=== PATIENT | male | born 1955 | race Caucasian/White ===

== ENCOUNTER 2017-05-23 12:28 | Inpatient (IN) | payer MEDICARE, MEDICAID ==
--- NOTE | 2017-05-23 14:18 | EDM.PDOC ---
ED HPI GENERAL MEDICAL PROBLEM - General Chief Complaint: Cardiovascular Problem Stated Complaint: DIZZINESS Time Seen by Provider: 05/23/17 13:00 Source of Information: Reports: Patient History Limitations: Reports: No Limitations - History of Present Illness INITIAL COMMENTS - FREE TEXT/NARRATIVE: 62-year-old male with chronic peripheral edema, congestive heart failure and diffuse joint pains, especially knee pain has been trying to clear his peripheral edema with different medications and last night had such a tough time sleeping and was so uncomfortable that he decided he had to come in "to get something done". He has no chest pain. No nausea or vomiting. He is in no respiratory distress and is not hypoxic. Onset: Unknown/Unsure Severity: Moderate Associated Symptoms: Reports: Malaise, Shortness of Breath (Especially lying down), Weakness. Denies: Chest Pain, Cough, Fever/Chills, Headaches, Nausea/ Vomiting 8.5 Pain Score (Numeric/FACES): 8 - Related Data Allergies Allergy/AdvReac Type Severity Reaction Status Date / Time acetaminophen [From Tylenol] Allergy Ringing in Verified 05/23/17 16:37 the Ears flurbiprofen [From Ansaid] Allergy Abdominal Verified 05/23/17 16:37 Pain codeine AdvReac Nausea Verified 05/23/17 16:37 Home Meds: Home Meds Lisinopril [Prinivil] 40 mg PO DAILY 01/13/13 [History] amLODIPine [Norvasc] 10 mg PO BEDTIME 10/07/13 [History] Furosemide [Furosemide] 1 tab PO BID 05/23/17 [History] Metolazone [Metolazone] 1 tab PO DAILY 05/23/17 [History] Past Medical History HEENT History: Reports: Other (See Below) Other HEENT History: ears ringing Cardiovascular History: Reports: Heart Failure, Hypertension Gastrointestinal History: Reports: Other (See Below) Other Gastrointestinal History: appy Genitourinary History: Reports: Other (See Below) Other Genitourinary History: cloudy urine Musculoskeletal History: Reports: Other (See Below) Other Musculoskeletal History: work at the [employer] since then has had pain in arm and back Neurological History: Reports: Other (See Below) Other Neuro History: anerysm clipped Psychiatric History: Reports: Depression Hematologic History: Reports: Anemia - Past Surgical History Musculoskeletal Surgical History: Reports: Other (See Below) Social & Family History - Tobacco Use Smoking Status *Q: Current Every Day Smoker Years of Tobacco use: 20 Packs/Tins Daily: 0.5 Second Hand Smoke Exposure: Yes - Alcohol Use Days Per Week of Alcohol Use: 0 Number of Drinks Per Day: 0 Total Drinks Per Week: 0 - Recreational Drug Use Recreational Drug Use: No ED ROS GENERAL - Review of Systems Review Of Systems: See Below Constitutional: Reports: Malaise. Denies: Fever, Chills HEENT: Reports: No Symptoms Respiratory: Reports: Shortness of Breath Cardiovascular: Reports: Lightheadedness. Denies: Chest Pain, Palpitations GI/Abdominal: Denies: Abdominal Pain (No pain but he feels full) : Reports: Other (Nocturia is consistent and recurring) Skin: Reports: Other (Some erythema of the lower extremities especially anteriorly.) Neurological: Reports: Dizziness, Weakness. Denies: Headache Psychiatric: Reports: Anxiety (History PTSD) ED EXAM, GENERAL - Physical Exam Exam: See Below Exam Limited By: No Limitations General Appearance: Alert, No Apparent Distress Eye Exam: Bilateral Eye: EOMI Head: Atraumatic Respiratory/Chest: No Respiratory Distress, Lungs Clear Cardiovascular: Regular Rate, Rhythm, Extra Beats (Occasional ectopic beat is present) GI/Abdominal: Normal Bowel Sounds, Other (Morbidly obese, nontender) Extremities: Pedal Edema (Tense lower extremity edema bilaterally, somewhat tender to palpation. Anterior lower legs are somewhat erythematous) Neurological: Alert, Oriented, No Motor/Sensory Deficits Psychiatric: Normal Affect, Normal Mood Skin Exam: Warm, Dry, Erythema (Lower extremities) Course - Vital Signs Last Recorded V/S: Last Vital Signs Temp 98 F 05/24/17 07:12 Pulse 94 05/24/17 07:12 Resp 16 05/24/17 07:12 BP 157/100 H 05/24/17 07:12 Pulse Ox 93 L 05/24/17 07:12 - Orders/Labs/Meds Orders: Active Orders 24 hr Category Date Time Status Chest 2V [CR] Routine Exams 05/23/17 13:55 Taken Sodium Chloride 0.9% [Saline Flush] Med 05/23/17 15:00 Active 10 ml FLUSH ASDIRECTED PRN Saline Lock Insert [OM.PC] Routine Oth 05/23/17 15:00 Ordered Medication Orders Amlodipine Besylate (Norvasc) 10 mg PO BEDTIME [facility] Last Admin: 05/23/17 21:50 Dose: 10 mg Furosemide (Lasix) 40 mg IVPUSH BID [facility] Last Admin: 05/23/17 20:33 Dose: 40 mg Lisinopril (Prinivil) 40 mg PO DAILY [facility] Sodium Chloride (Saline Flush) 10 ml FLUSH ASDIRECTED PRN PRN Reason: Keep Vein Open Last Admin: 05/23/17 15:16 Dose: 10 ml Tramadol HCl (Ultram) 50 mg PO Q6H [facility] Last Admin: 05/24/17 05:06 Dose: 50 mg Admin: 05/23/17 22:34 Dose: Not Given Admin: 05/23/17 17:17 Dose: 50 mg Labs: Laboratory Tests 05/23/17 05/23/17 05/23/17 Range/Units 14:08 14:08 14:59 WBC 9.4 (4.5-11.0) K/uL RBC 4.89 (4.30-5.90) M/uL Hgb 11.2 L D (12.0-15.0) g/dL Hct 37.9 L (40.0-54.0) % MCV 78 L (80-98) fL MCH 23 L (27-31) pg MCHC 30 L (32-36) % Plt Count 342 (150-400) K/uL Neut % (Auto) 65 (36-66) % Lymph % (Auto) 19 L (24-44) % [place] % (Auto) 12 H (2-6) % Eos % (Auto) 4 (2-4) % Baso % (Auto) 0 (0-1) % Sodium 142 (140-148) mmol/L Potassium 4.4 (3.6-5.2) mmol/L Chloride 104 (100-108) mmol/L Carbon Dioxide 28 (21-32) mmol/L Anion Gap 10.1 (5.0-14.0) mmol/L BUN 16 (7-18) mg/dL Creatinine 0.9 (0.8-1.3) mg/dL Est Cr Clr Drug Dosing 93.41 mL/min Estimated GFR (MDRD) > 60 (>60) Glucose 87 (74-106) mg/dL Calcium 8.8 (8.5-10.1) mg/dL Total Bilirubin 0.3 (0.2-1.0) mg/dL AST 24 (15-37) U/L ALT 44 (12-78) U/L Alkaline Phosphatase 67 (46-116) U/L Troponin I < 0.017 (0.000-0.056) ng/mL Total Protein 7.5 (6.4-8.2) g/dL Albumin 3.6 (3.4-5.0) g/dL Globulin 3.9 H (2.3-3.5) g/dL Albumin/Globulin Ratio 0.9 L (1.2-2.2) Urine Color Yellow Urine Appearance Clear Urine pH 6.0 (4.5-8.0) Ur Specific [place] 1.020 (1.008-1.030) Urine Protein Negative (NEGATIVE) mg/dL Urine Glucose (UA) Normal (NEGATIVE) mg/dL Urine Ketones Negative (NEGATIVE) mg/dL Urine Occult Blood Moderate (NEGATIVE) Urine Nitrite Negative (NEGAITVE) Urine Bilirubin Negative (NEGATIVE) Urine Urobilinogen Normal (NORMAL) mg/dL Ur Leukocyte Esterase Negative (NEGATIVE) Urine RBC 5-10 H (0-5) Urine WBC Not seen (0-5) Ur Epithelial Cells Rare Amorphous Sediment Not seen Urine Bacteria Rare Urine Mucus Few Meds: Medications Generic Name Dose Route Start Last Admin Trade Name Freq PRN Reason Stop Dose Admin Amlodipine Besylate 10 mg 05/23/17 21:00 05/23/17 21:50 Norvasc PO 10 mg BEDTIME DAVIDE Administration Furosemide 40 mg 05/23/17 21:00 05/23/17 20:33 Lasix IVPUSH 40 mg BID DAVIDE Administration Lisinopril 40 mg 05/24/17 09:00 Prinivil PO DAILY DAVIDE Sodium Chloride 10 ml 05/23/17 15:00 05/23/17 15:16 Saline Flush FLUSH 10 ml ASDIRECTED PRN Administration Keep Vein Open Tramadol HCl 50 mg 05/23/17 17:00 05/24/17 05:06 Ultram PO 50 mg Q6H DAVIDE Administration Discontinued Medications Generic Name Dose Route Start Last Admin Trade Name Freq PRN Reason Stop Dose Admin Amlodipine Besylate Confirm 05/23/17 20:31 05/23/17 20:55 Norvasc Administered 05/23/17 20:32 Not Given Dose 10 mg .ROUTE .STK-MED ONE Furosemide 40 mg 05/23/17 15:03 05/23/17 15:16 Lasix IVPUSH 05/23/17 15:04 40 mg ONETIME ONE Administration Furosemide 100 mg/ Sodium 100 mls @ 5 mls/hr 05/23/17 16:41 05/23/17 18:40 Chloride IV 05/24/17 12:40 Not Given NOW STA Protocol 5 MG/HR Lorazepam 0.5 mg 05/23/17 20:22 05/23/17 21:49 Ativan IVPUSH 05/23/17 20:23 0.5 mg ONETIME ONE Administration Morphine Sulfate 2 mg 05/23/17 20:21 05/23/17 21:45 Morphine IVPUSH 05/23/17 20:22 2 mg ONETIME ONE Administration - Re-Assessments/Exams Free Text/Narrative Re-Assessment/Exam: 05/23/17 14:17 A chest x-ray was obtained along with a UA, CBC and CMP. He was kept on cardiac monitoring and remained in a sinus rhythm. 05/23/17 15:00 Chest x-ray was relatively normal showing no evidence of congestive heart failure. Hemoglobin is 11.2, entire CMP was normal. After discussing his condition with Dr. Montemayor, his primary provider he'll be admitted for the next 24-48 hours for IV diuresis of his significant peripheral edema. Departure - Departure Time of Disposition: 17:57 Disposition: Admitted As Inpatient 66 Condition: Fair Clinical Impression: CHF (congestive heart failure), Peripheral edema, Weakness generalized - My Orders Last 24 Hours: My Active Orders 05/23/17 13:55 Chest 2V [CR] Routine 05/23/17 15:00 Sodium Chloride 0.9% [Saline Flush] 10 ml FLUSH ASDIRECTED PRN Saline Lock Insert [OM.PC] Routine - Assessment/Plan Last 24 Hours: My Active Orders 05/23/17 13:55 Chest 2V [CR] Routine 05/23/17 15:00 Sodium Chloride 0.9% [Saline Flush] 10 ml FLUSH ASDIRECTED PRN Saline Lock Insert [OM.PC] Routine
[2017-05-23] MEDS ORDERED: Sodium Chloride 0.9% 10 ML Syringe FLUSH PRN (15:00)
[2017-05-23] MEDS ORDERED: Furosemide 40 MG/4 ML VIAL IVPUSH ONE (15:03)
--- NOTE | 2017-05-23 16:36 | PCM.HP ---
H&P History of Present Illness - General Date of Service: 05/23/17 Admit Problem/Dx: Admission Diagnosis/Problem Admission Diagnosis/Problem Edema - History of Present Illness Initial Comments - Free Text/Narative: Otto comes in because of significant shortness of breath and also fainting episodes. He said he fell hitting his head on the dresser at home. He has episodes of loss of consciousness and he is concerned. He has significant respiratory distress and swelling of his legs and he said he can't get rid of the water that he has in his legs and arms. He also has pain in his legs and wants medication for relief. He said he is having a hard time sleeping and has to sit in a chair often. Onset of Symptoms: Reports: Gradual Duration of Symptoms: Reports: Week(s): Severity: Moderate Improves with: Reports: Immobilization Worsens with: Reports: Movement 8.5 Pain Score (Numeric/FACES): 8 - Related Data Allergies/Adverse Reactions: Allergies Allergy/AdvReac Type Severity Reaction Status Date / Time acetaminophen [From Tylenol] Allergy Ringing in Verified 05/23/17 16:37 the Ears flurbiprofen [From Ansaid] Allergy Abdominal Verified 05/23/17 16:37 Pain codeine AdvReac Nausea Verified 05/23/17 16:37 Home Medications: Home Meds Lisinopril [Prinivil] 40 mg PO DAILY 01/13/13 [History] amLODIPine [Norvasc] 10 mg PO BEDTIME 10/07/13 [History] Furosemide [Furosemide] 1 tab PO BID 05/23/17 [History] Metolazone [Metolazone] 1 tab PO DAILY 05/23/17 [History] Past Medical History HEENT History: Reports: Other (See Below) Other HEENT History: ears ringing Cardiovascular History: Reports: Heart Failure, Hypertension Gastrointestinal History: Reports: Other (See Below) Other Gastrointestinal History: appy Genitourinary History: Reports: Other (See Below) Other Genitourinary History: cloudy urine Musculoskeletal History: Reports: Other (See Below) Other Musculoskeletal History: work at the [employer] since then has had pain in arm and back Neurological History: Reports: Other (See Below) Other Neuro History: anerysm clipped Psychiatric History: Reports: Depression Hematologic History: Reports: Anemia - Past Surgical History Musculoskeletal Surgical History: Reports: Other (See Below) Social & Family History - Tobacco Use Smoking Status *Q: Current Every Day Smoker Years of Tobacco use: 20 Packs/Tins Daily: 0.5 Second Hand Smoke Exposure: Yes - Alcohol Use Days Per Week of Alcohol Use: 0 Number of Drinks Per Day: 0 Total Drinks Per Week: 0 - Recreational Drug Use Recreational Drug Use: No H&P Review of Systems - Review of Systems: Review Of Systems: See Below General: Reports: Weakness, Decreased Appetite, Weight Gain HEENT: Reports: No Symptoms Pulmonary: Reports: Shortness of Breath, Wheezing Cardiovascular: Reports: Dyspnea on Exertion, Syncope Gastrointestinal: Reports: Decreased Appetite Genitourinary: Reports: No Symptoms Musculoskeletal: Reports: Back Pain, Leg Pain, Muscle Pain Skin: Reports: No Symptoms Psychiatric: Reports: Depression Neurological: Reports: Dizziness Exam - Exam Exam: See Below - Vital Signs Vital Signs: Last Vital Signs Temp 98.8 F 05/23/17 13:18 Pulse 95 05/23/17 13:18 Resp 18 05/23/17 13:18 BP 144/88 H 05/23/17 15:16 Pulse Ox 94 L 05/23/17 13:18 Weight: 300 lb - Exam General: Alert, Oriented, Cooperative, Moderate Distress HEENT: PERRLA, Hearing Intact, Mucosa Moist & [place], Nares Patent, Normal Nasal Septum, Posterior Pharynx Clear, Conjunctiva Clear, EOMI, EACs Clear, TMs Clear Neck: Supple, Trachea Midline, 2 Lungs: Clear to Auscultation, Normal Respiratory Effort Cardiovascular: Regular Rate, Regular Rhythm GI/Abdominal Exam: Normal Bowel Sounds, Soft, Non-Tender, No Organomegaly, No Distention, No Abnormal Bruit, No Mass, Pelvis Stable, Other (gross obesity) Extremities: Pedal Edema (+3 edema) Peripheral Pulses: 1+: Radial (L), Radial (R) Neurological: Cranial Nerves Intact, Reflexes Equal Bilateral Neuro Extensive - Mental Status: Alert, Oriented x3, Normal Cognition, Memory Intact Neuro Extensive - Motor, Sensory, Reflexes: CN II-XII Intact, Normal Reflexes Psychiatric: Alert, Anxious - Patient Data Lab Results Last 24 hrs: Laboratory Results - last 24 hr 05/23/17 05/23/17 05/23/17 Range/Units 14:08 14:08 14:59 WBC 9.4 (4.5-11.0) K/uL RBC 4.89 (4.30-5.90) M/uL Hgb 11.2 L D (12.0-15.0) g/dL Hct 37.9 L (40.0-54.0) % MCV 78 L (80-98) fL MCH 23 L (27-31) pg MCHC 30 L (32-36) % Plt Count 342 (150-400) K/uL Neut % (Auto) 65 (36-66) % Lymph % (Auto) 19 L (24-44) % [place] % (Auto) 12 H (2-6) % Eos % (Auto) 4 (2-4) % Baso % (Auto) 0 (0-1) % Sodium 142 (140-148) mmol/L Potassium 4.4 (3.6-5.2) mmol/L Chloride 104 (100-108) mmol/L Carbon Dioxide 28 (21-32) mmol/L Anion Gap 10.1 (5.0-14.0) mmol/L BUN 16 (7-18) mg/dL Creatinine 0.9 (0.8-1.3) mg/dL Est Cr Clr Drug Dosing 93.41 mL/min Estimated GFR (MDRD) > 60 (>60) Glucose 87 (74-106) mg/dL Calcium 8.8 (8.5-10.1) mg/dL Total Bilirubin 0.3 (0.2-1.0) mg/dL AST 24 (15-37) U/L ALT 44 (12-78) U/L Alkaline Phosphatase 67 (46-116) U/L Troponin I < 0.017 (0.000-0.056) ng/mL Total Protein 7.5 (6.4-8.2) g/dL Albumin 3.6 (3.4-5.0) g/dL Globulin 3.9 H (2.3-3.5) g/dL Albumin/Globulin Ratio 0.9 L (1.2-2.2) Urine Color Yellow Urine Appearance Clear Urine pH 6.0 (4.5-8.0) Ur Specific [place] 1.020 (1.008-1.030) Urine Protein Negative (NEGATIVE) mg/dL Urine Glucose (UA) Normal (NEGATIVE) mg/dL Urine Ketones Negative (NEGATIVE) mg/dL Urine Occult Blood Moderate (NEGATIVE) Urine Nitrite Negative (NEGAITVE) Urine Bilirubin Negative (NEGATIVE) Urine Urobilinogen Normal (NORMAL) mg/dL Ur Leukocyte Esterase Negative (NEGATIVE) Urine RBC 5-10 H (0-5) Urine WBC Not seen (0-5) Ur Epithelial Cells Rare Amorphous Sediment Not seen Urine Bacteria Rare Urine Mucus Few Result Diagrams: 05/23/17 14:08 05/23/17 14:08 *Q Meaningful Use (ADM) - VTE *Q VTE Criteria *Q: - Stroke *Q Stroke Criteria *Q: - AMI *Q AMI Criteria *Q: Problem List Initiated/Reviewed/Updated: Yes Orders Last 24hrs: Active Orders 24 hr Category Date Time Status Patient Status [ADT] Routine ADT 05/23/17 16:22 Ordered Ambulate [RC] QID Care 05/23/17 16:22 Ordered Bedrest Bathroom Privileges [RC] ASDIRECTED Care 05/23/17 16:22 Ordered Height and Weight [RC] DAILY Care 05/24/17 05:11 Ordered Intake and Output [RC] QSHIFT Care 05/23/17 16:26 Ordered Oxygen Therapy [RC] PRN Care 05/23/17 16:22 Ordered Up to Chair [RC] QID Care 05/23/17 16:22 Ordered VTE/DVT Education [RC] Per Unit Routine Care 05/23/17 16:22 Ordered Vital Signs [RC] Q4H Care 05/23/17 16:22 Ordered Regular Diet [DIET] Diet 05/23/17 Dinner Ordered Chest 2V [CR] Routine Exams 05/23/17 13:55 Taken Lisinopril [Prinivil] Med 05/24/17 09:00 Ordered 40 mg PO DAILY Sodium Chloride 0.9% [Saline Flush] Med 05/23/17 15:00 Active 10 ml FLUSH ASDIRECTED PRN amLODIPine [Norvasc] Med 05/23/17 21:00 Ordered 10 mg PO BEDTIME Saline Lock Insert [OM.PC] Routine Oth 05/23/17 15:00 Ordered Resuscitation Status Routine Resus Stat 05/23/17 16:22 Ordered Medication Orders Sodium Chloride (Saline Flush) 10 ml FLUSH ASDIRECTED PRN PRN Reason: Keep Vein Open Last Admin: 05/23/17 15:16 Dose: 10 ml Assessment/Plan Comment:: assessment/Plan: #1. Edema: There is +3 edema and will give Lasix to remove the fluid. I will also order an echocardiogram to assess the heart condition. Neck told him that he needs to change his diet and lose weight her he will be a full-blown diabetic on insulin. #2. Hypertension: I feel that the amlodipine is causing some of his edema had decreased the amlodipine back to 5 mg a day and will start other medication tomorrow depending on blood pressure readings. He did have an injection of Lasix when he came in the knees lost quite a bit of water and this will continue. #3. Back Pain: Will treat as needed.
[2017-05-23] MEDS ORDERED: Furosemide 100 MG in Sodium Chloride 0.9% 90 ML IV STA (16:41)
[2017-05-23] MEDS: traMADol 50 MG Tab PO SCH ×2 (17:17→22:34)
[2017-05-23] MEDS ORDERED: Morphine 2 MG/ML Syringe IVPUSH ONE (20:21)
[2017-05-23] MEDS ORDERED: LORazepam 2 MG/ML SDV IVPUSH ONE (20:22)
[2017-05-23] MEDS ORDERED: amLODIPine 5 MG Tab ONE (20:31)
[2017-05-23] MEDS: Furosemide 40 MG/4 ML VIAL IVPUSH SCH (20:33)
[2017-05-23] MEDS ORDERED: amLODIPine 10 MG Tab PO SCH (21:00)
[2017-05-24] MEDS: traMADol 50 MG Tab PO SCH ×2 (05:06→12:07)
[2017-05-24] MEDS: Furosemide 40 MG/4 ML VIAL IVPUSH SCH ×2 (08:36→20:13)
[2017-05-24] MEDS: Lisinopril 20 MG Tab PO SCH (08:36)
--- NOTE | 2017-05-24 11:36 | PCM.PN ---
- General Info Date of Service: 05/24/17 Admission Dx/Problem (Free Text): Still has fluid retention but feeling better. Functional Status: Reports: Pain Controlled, Ambulating - Review of Systems Pulmonary: Reports: Shortness of Breath Cardiovascular: Reports: Dyspnea on Exertion, Edema Gastrointestinal: Reports: No Symptoms Genitourinary: Reports: No Symptoms Musculoskeletal: Reports: Back Pain, Leg Pain Skin: Reports: No Symptoms Neurological: Reports: No Symptoms Psychiatric: Reports: No Symptoms - Patient Data Vitals - Most Recent: Last Vital Signs Temp 98 F 05/24/17 07:12 Pulse 94 05/24/17 07:12 Resp 16 05/24/17 07:12 BP 157/100 H 05/24/17 08:36 Pulse Ox 93 L 05/24/17 07:12 Weight - Most Recent: 303 lb 6.4 oz I&O - Last 24 Hours: Intake & Output 05/23/17 05/24/17 05/24/17 22:59 06:59 14:59 Intake Total 1240 240 Output Total 1950 125 250 Balance -[facility] 1115 -10 Med Orders - Current: Current Medications Amlodipine Besylate (Norvasc) 5 mg PO DAILY [facility] Doxazosin Mesylate (Cardura) 4 mg PO BEDTIME [facility] Furosemide (Lasix) 40 mg IVPUSH BID [facility] Last Admin: 05/24/17 08:36 Dose: 40 mg Lisinopril (Prinivil) 40 mg PO DAILY [facility] Last Admin: 05/24/17 08:36 Dose: 40 mg Sodium Chloride (Saline Flush) 10 ml FLUSH ASDIRECTED PRN PRN Reason: Keep Vein Open Last Admin: 05/23/17 15:16 Dose: 10 ml Tramadol HCl (Ultram) 50 mg PO Q6H PRN PRN Reason: PAIN Discontinued Medications Amlodipine Besylate (Norvasc) 10 mg PO BEDTIME [facility] Last Admin: 05/23/17 21:50 Dose: 10 mg Amlodipine Besylate (Norvasc) Confirm Administered Dose 10 mg .ROUTE .STK-MED ONE Stop: 05/23/17 20:32 Last Admin: 05/23/17 20:55 Dose: Not Given Furosemide (Lasix) 40 mg IVPUSH ONETIME ONE Stop: 05/23/17 15:04 Last Admin: 05/23/17 15:16 Dose: 40 mg Furosemide 100 mg/ Sodium (Chloride) 100 mls @ 5 mls/hr IV NOW STA; 5 MG/HR PRN Reason: Protocol Stop: 05/24/17 12:40 Last Admin: 05/23/17 18:40 Dose: Not Given Lorazepam (Ativan) 0.5 mg IVPUSH ONETIME ONE Stop: 05/23/17 20:23 Last Admin: 05/23/17 21:49 Dose: 0.5 mg Morphine Sulfate (Morphine) 2 mg IVPUSH ONETIME ONE Stop: 05/23/17 20:22 Last Admin: 05/23/17 21:45 Dose: 2 mg Tramadol HCl (Ultram) 50 mg PO Q6H DAVIDE Last Admin: 05/24/17 05:06 Dose: 50 mg - Exam General: Oriented, Cooperative, Mild Distress HEENT: Pupils Equal, Pupils Reactive, EOMI, Mucous Membr. Moist/[place] Neck: Supple Lungs: Clear to Auscultation, Normal Respiratory Effort Cardiovascular: Regular Rate, Regular Rhythm GI/Abdominal Exam: Normal Bowel Sounds, Soft, Other (obesity) Back Exam: Vertebral Tenderness Extremities: Pedal Edema Peripheral Pulses: 1+: Radial (L) - Problem List Review Problem List Initiated/Reviewed/Updated: Yes - My Orders Last 24 Hours: My Active Orders 05/23/17 20:23 Telemetry Monitoring [Cardiac Monitoring] [RC] .As Directed 05/23/17 21:00 Furosemide [Lasix] 40 mg IVPUSH BID 05/24/17 08:58 SCD [Sequential Compression Device] [OM.PC] Routine 05/24/17 09:00 Lisinopril [Prinivil] 40 mg PO DAILY 05/24/17 11:27 traMADol [Ultram] 50 mg PO Q6H PRN 05/24/17 21:00 Doxazosin [Cardura] 4 mg PO BEDTIME 05/25/17 09:00 amLODIPine [Norvasc] 5 mg PO DAILY - Assessment Assessment:: Assessment/Plan: #1. Edema: There is +3 edema and will continue with Lasix to remove the fluid. An echocardiogram to assess the heart condition is pending tomorrow. I told him that he needs to change his diet and lose weight or else will be a full-blown diabetic on insulin. #2. Hypertension: I started him on Cardura 2 mg at night. #3. Back Pain: Will treat as needed.
[2017-05-24] MEDS: traMADol 50 MG Tab PO PRN (17:28)
[2017-05-24] MEDS ORDERED: Doxazosin 4 MG Tab PO SCH ×2 (21:00)
[2017-05-25] MEDS: traMADol 50 MG Tab PO PRN ×2 (01:08→08:22)
[2017-05-25] MEDS: Lisinopril 20 MG Tab PO SCH (08:11)
[2017-05-25] MEDS: Furosemide 40 MG/4 ML VIAL IVPUSH SCH (08:12)
[2017-05-25] MEDS ORDERED: amLODIPine 5 MG Tab PO SCH (09:00)
--- NOTE | 2017-05-25 09:18 | CR ---
Two-view chest Comparison: July 2015. Findings: The heart and vascular structures are within normal limits. There are no infiltrates or eff usions. There is a chronic large hiatal hernia. Impression: 1. Stable exam. No acute findings.
--- NOTE | 2017-05-25 09:51 | PCM.PN ---
- General Info Date of Service: 05/25/17 Subjective Update: Feeling better and breathing better with the water passed. Functional Status: Reports: Pain Controlled - Review of Systems General: Reports: Weakness HEENT: Reports: No Symptoms Pulmonary: Reports: No Symptoms Cardiovascular: Reports: No Symptoms Gastrointestinal: Reports: No Symptoms Genitourinary: Reports: No Symptoms Musculoskeletal: Reports: Joint Pain Skin: Reports: No Symptoms Neurological: Reports: No Symptoms Psychiatric: Reports: No Symptoms - Patient Data Vitals - Most Recent: Last Vital Signs Temp 98.7 F 05/25/17 07:00 Pulse 97 05/25/17 07:00 Resp 18 05/25/17 07:00 BP 148/84 H 05/25/17 08:12 Pulse Ox 95 05/25/17 07:00 Weight - Most Recent: 304 lb 3.2 oz I&O - Last 24 Hours: Intake & Output 05/24/17 05/25/17 05/25/17 22:59 06:59 14:59 Output Total 2024 1499 1799 Balance -2024 Med Orders - Current: Current Medications Amlodipine Besylate (Norvasc) 5 mg PO DAILY [facility] Last Admin: 05/25/17 08:10 Dose: 5 mg Doxazosin Mesylate (Cardura) 2 mg PO BEDTIME [facility] Furosemide (Lasix) 40 mg IVPUSH BID [facility] Last Admin: 05/25/17 08:12 Dose: 40 mg Lisinopril (Prinivil) 40 mg PO DAILY [facility] Last Admin: 05/25/17 08:11 Dose: 40 mg Sodium Chloride (Saline Flush) 10 ml FLUSH ASDIRECTED PRN PRN Reason: Keep Vein Open Last Admin: 05/23/17 15:16 Dose: 10 ml Tramadol HCl (Ultram) 50 mg PO Q6H PRN PRN Reason: PAIN Last Admin: 05/25/17 08:22 Dose: 50 mg Discontinued Medications Amlodipine Besylate (Norvasc) 10 mg PO BEDTIME [facility] Last Admin: 05/23/17 21:50 Dose: 10 mg Amlodipine Besylate (Norvasc) Confirm Administered Dose 10 mg .ROUTE .STK-MED ONE Stop: 05/23/17 20:32 Last Admin: 05/23/17 20:55 Dose: Not Given Doxazosin Mesylate (Cardura) 4 mg PO BEDTIME [facility] Furosemide (Lasix) 40 mg IVPUSH ONETIME ONE Stop: 05/23/17 15:04 Last Admin: 05/23/17 15:16 Dose: 40 mg Furosemide 100 mg/ Sodium (Chloride) 100 mls @ 5 mls/hr IV NOW STA; 5 MG/HR PRN Reason: Protocol Stop: 05/24/17 12:40 Last Admin: 05/23/17 18:40 Dose: Not Given Lorazepam (Ativan) 0.5 mg IVPUSH ONETIME ONE Stop: 05/23/17 20:23 Last Admin: 05/23/17 21:49 Dose: 0.5 mg Morphine Sulfate (Morphine) 2 mg IVPUSH ONETIME ONE Stop: 05/23/17 20:22 Last Admin: 05/23/17 21:45 Dose: 2 mg Tramadol HCl (Ultram) 50 mg PO Q6H [facility] Last Admin: 05/24/17 12:07 Dose: Not Given - Exam General: Alert, Oriented Neck: Supple Lungs: Clear to Auscultation, Normal Respiratory Effort Cardiovascular: Regular Rate, Regular Rhythm GI/Abdominal Exam: Normal Bowel Sounds, Soft, Non-Tender, No Organomegaly, No Distention, No Abnormal Bruit, No Mass, Pelvis Stable Extremities: Other (knee ppain) Peripheral Pulses: 1+: Radial (L), Radial (R) Skin: Warm, Dry, Intact Psy/Mental Status: Alert, Normal Affect - Problem List Review Problem List Initiated/Reviewed/Updated: Yes - My Orders Last 24 Hours: My Active Orders 05/24/17 08:58 SCD [Sequential Compression Device] [OM.PC] Routine 05/24/17 09:00 Lisinopril [Prinivil] 40 mg PO DAILY 05/24/17 11:27 traMADol [Ultram] 50 mg PO Q6H PRN 05/24/17 21:00 Doxazosin [Cardura] 2 mg PO BEDTIME 05/25/17 05:00 Echo Ltd [US] Routine 05/25/17 09:00 amLODIPine [Norvasc] 5 mg PO DAILY 05/25/17 09:45 BASIC METABOLIC PANEL,BMP [CHEM] Routine CBC WITH AUTO DIFF [HEME] Routine - Assessment Assessment:: Assessment/Plan: #1. Edema: There is +3 edema and will continue with Lasix to remove the fluid. An echocardiogram to assess the heart condition is pending tomorrow. I told him that he needs to change his diet and lose weight or else will be a full-blown diabetic on insulin. #2. Hypertension: I wrote for Cardura 2 mg at night yesterday but the BP dropped and was not given. #3. Back Pain: Will treat as needed. Plan home today:
--- NOTE | 2017-05-25 09:58 | PCM.DCSUM1 ---
Discharge Summary - Hospital Course Brief History: History of fluid retention and having a hard time breathing and came to the ER and was admitted to improve his breathing by taking off fluid. - Discharge Data Discharge Date: 05/25/17 Discharge Disposition: Home, Self-Care 01 Condition: Good - Patient Summary/Data Hospital Course: Gave IV Lasix with good fluid removal and Echocardiogram is pending. - Patient Instructions Diet: Heart Healthy Diet Activity: As Tolerated - Discharge Plan Home Medications: Home Meds Lisinopril [Prinivil] 40 mg PO DAILY 01/13/13 [History] amLODIPine [Norvasc] 10 mg PO BEDTIME 10/07/13 [History] Metolazone 1 tab PO DAILY 05/23/17 [History] Furosemide 1 tab PO BID #0 05/25/17 [Rx] Forms: ED Department Discharge Referrals: Darius Montemayor Sr, MD [Primary Care Provider] - - Discharge Summary/Plan Comment Discharge Summary/Plan Comment: Assessment/Plan: #1. Edema: There is +3 edema and will continue with Lasix to remove the fluid. An echocardiogram to assess the heart condition is pending tomorrow. I told him that he needs to change his diet and lose weight or else will be a full-blown diabetic on insulin. Discharged with Lasix 40mg bid for 1 week and see in the office. #2. Hypertension: I wrote for Cardura 2 mg at night yesterday but the BP dropped and was not given. #3. Back Pain: Will treat as needed. - Patient Data Vitals - Most Recent: Last Vital Signs Temp 98.7 F 05/25/17 07:00 Pulse 97 05/25/17 07:00 Resp 18 05/25/17 07:00 BP 148/84 H 05/25/17 08:12 Pulse Ox 95 05/25/17 07:00 Weight - Most Recent: 304 lb 3.2 oz I&O - Last 24 hours: Intake & Output 05/24/17 05/25/17 05/25/17 22:59 06:59 14:59 Output Total 2024 1499 1799 Balance -2024 Med Orders - Current: Current Medications Amlodipine Besylate (Norvasc) 5 mg PO DAILY [facility] Last Admin: 05/25/17 08:10 Dose: 5 mg Doxazosin Mesylate (Cardura) 2 mg PO BEDTIME [facility] Furosemide (Lasix) 40 mg IVPUSH BID [facility] Last Admin: 05/25/17 08:12 Dose: 40 mg Lisinopril (Prinivil) 40 mg PO DAILY [facility] Last Admin: 05/25/17 08:11 Dose: 40 mg Sodium Chloride (Saline Flush) 10 ml FLUSH ASDIRECTED PRN PRN Reason: Keep Vein Open Last Admin: 05/23/17 15:16 Dose: 10 ml Tramadol HCl (Ultram) 50 mg PO Q6H PRN PRN Reason: PAIN Last Admin: 05/25/17 08:22 Dose: 50 mg Discontinued Medications Amlodipine Besylate (Norvasc) 10 mg PO BEDTIME [facility] Last Admin: 05/23/17 21:50 Dose: 10 mg Amlodipine Besylate (Norvasc) Confirm Administered Dose 10 mg .ROUTE .STK-MED ONE Stop: 05/23/17 20:32 Last Admin: 05/23/17 20:55 Dose: Not Given Doxazosin Mesylate (Cardura) 4 mg PO BEDTIME [facility] Furosemide (Lasix) 40 mg IVPUSH ONETIME ONE Stop: 05/23/17 15:04 Last Admin: 05/23/17 15:16 Dose: 40 mg Furosemide 100 mg/ Sodium (Chloride) 100 mls @ 5 mls/hr IV NOW STA; 5 MG/HR PRN Reason: Protocol Stop: 05/24/17 12:40 Last Admin: 05/23/17 18:40 Dose: Not Given Lorazepam (Ativan) 0.5 mg IVPUSH ONETIME ONE Stop: 05/23/17 20:23 Last Admin: 05/23/17 21:49 Dose: 0.5 mg Morphine Sulfate (Morphine) 2 mg IVPUSH ONETIME ONE Stop: 05/23/17 20:22 Last Admin: 05/23/17 21:45 Dose: 2 mg Tramadol HCl (Ultram) 50 mg PO Q6H [facility] Last Admin: 05/24/17 12:07 Dose: Not Given *Q Meaningful Use (DIS) - VTE *Q VTE Criteria *Q: - Stroke *Q Stroke Criteria *Q: - AMI *Q AMI Criteria *Q:
[2017-05-25 11:10] VITALS: BP 133/81
== END 2017-05-25 12:00 | disposition home or self-care (01) | DRG 292 ==
LOC: JP.ED 12:28 → JP.MS 16:22 → UNDOADMIN 16:22 → JP.ICU 16:22
PROVIDERS: ADMIT Internal Medicine; ATTEND Internal Medicine
DX: I11.0 Hypertensive heart disease with heart failure (principal); Z68.41 Body mass index [BMI] 40.0-44.9, adult; R53.1 Weakness; R06.02 Shortness of breath; I50.22 Chronic systolic (congestive) heart failure; F17.210 Nicotine dependence, cigarettes, uncomplicated; M54.9 Dorsalgia, unspecified; Z88.6 Allergy status to analgesic agent; Z88.5 Allergy status to narcotic agent; E66.01 Morbid (severe) obesity due to excess calories
CPT/HCPCS: 36415; 71046 ×2; 80053; 81001; 84484; 85025; 96374; 99284; 99285; J1940; J7050; 80048; 93308; A9270-GY; J2060; J2270

== ENCOUNTER 2017-06-17 20:29 | Emergency (ER) | payer MEDICARE, MEDICAID ==
[2017-06-17 21:35] VITALS: BP 104/53
[2017-06-17] MEDS ORDERED: hydrOXYzine HCl 100 MG/2 ML SDV IM ONE (21:43)
--- NOTE | 2017-06-17 21:45 | EDM.PDOC ---
ED HPI GENERAL MEDICAL PROBLEM - General Chief Complaint: Allergic Reaction Stated Complaint: ALLERGIC REACTION Time Seen by Provider: 06/17/17 21:40 Source of Information: Reports: Patient, Old Records, RN Notes Reviewed History Limitations: Reports: No Limitations - History of Present Illness INITIAL COMMENTS - FREE TEXT/NARRATIVE: 62-year-old gentleman presents to the emergency department day complaint of a rash and increasing shortness of breath, he has a known history of congestive heart failure he cannot describe any new medications that he is started, was recently seen at the [facility] in [place] received 1 dose of Solu- Medrol for his ongoing rash. He states the rash is quite itchy and is making him difficult to sleep at night - Related Data Allergies Allergy/AdvReac Type Severity Reaction Status Date / Time acetaminophen [From Tylenol] Allergy Ringing in Verified 05/23/17 16:37 the Ears flurbiprofen [From Ansaid] Allergy Abdominal Verified 05/23/17 16:37 Pain codeine AdvReac Nausea Verified 05/23/17 16:37 Home Meds: Home Meds Lisinopril [Prinivil] 40 mg PO DAILY 01/13/13 [History] Metolazone 5 mg PO DAILY 05/23/17 [History] Amitriptyline [Elavil] 1 - 2 tab PO BEDTIME 06/17/17 [History] Furosemide 20 mg PO BID 06/17/17 [History] Hydrochlorothiazide 25 mg PO BID 06/17/17 [History] Metoprolol Tartrate 50 mg PO BID 06/17/17 [History] Naproxen 500 mg PO Q6HR 06/17/17 [History] Past Medical History HEENT History: Reports: Other (See Below) Other HEENT History: ears ringing Cardiovascular History: Reports: Heart Failure, Hypertension Gastrointestinal History: Reports: Other (See Below) Other Gastrointestinal History: appy Genitourinary History: Reports: Other (See Below) Other Genitourinary History: cloudy urine Musculoskeletal History: Reports: Other (See Below) Other Musculoskeletal History: work at the [employer] since then has had pain in arm and back Neurological History: Reports: Other (See Below) Other Neuro History: anerysm clipped Psychiatric History: Reports: Depression Endocrine/Metabolic History: Reports: Obesity/BMI 30+ Hematologic History: Reports: Anemia - Past Surgical History Musculoskeletal Surgical History: Reports: Other (See Below) Social & Family History - Tobacco Use Smoking Status *Q: Current Every Day Smoker Years of Tobacco use: 20 Packs/Tins Daily: 0.5 Second Hand Smoke Exposure: Yes - Caffeine Use Caffeine Use: Reports: None - Alcohol Use Days Per Week of Alcohol Use: 0 Number of Drinks Per Day: 0 Total Drinks Per Week: 0 - Recreational Drug Use Recreational Drug Use: No ED ROS ALLERGIC REACTION - Review of Systems Review Of Systems: See Below Constitutional: Denies: Fever, Chills HEENT: Reports: No Symptoms Respiratory: Reports: Shortness of Breath Cardiovascular: Reports: Edema GI/Abdominal: Reports: No Symptoms : Reports: No Symptoms Musculoskeletal: Reports: No Symptoms Skin: Reports: Pruritis, Rash Neurological: Reports: No Symptoms ED EXAM GENERAL NO PERIP PULSE - Physical Exam Exam: See Below Text/Narrative:: General: Male, not in any distress, alert and oriented x3 HEENT: head is atraumatic normocephalic, eyes pupils equal round reactive to light, sclera clear no conjunctivitis appreciated. Ears tympanic membranes clear and rudolph landmarks and light reflex are present bilaterally canals are clear. Nose no septal deviation, nares are clear, no blood present. Mouth mucosa is moist and pink no erythema or exudate noted in soft palate, tongue is midline uvula is midline, dentition is intact. Neck: Supple no thyromegaly no tracheal deviation. Nodes: Cervical nodes subclavicular nodes nontender no palpable lymphadenopathy noted. Lungs: Decreased breath sounds in the bases however apex is clear to auscultation bilaterally CV: Regular rate and rhythm S1 and S2 appreciated no murmurs rubs or gallops noted. Abdomen: Soft, obese, nontender, no palpable masses or organomegaly appreciated , no distention no guarding bowel sounds are present, Neuro: Cranial nerves II through XII grossly intact Skin: Generalized macular papular rash with an excoriation it scratch cycle lower extremities and upper extremities minimally noticed on the trunk Extremities: +2 pitting edema bilaterally Course - Vital Signs Last Recorded V/S: Last Vital Signs Temp 96.3 F 06/17/17 21:25 Pulse 97 06/17/17 21:25 Resp 16 06/17/17 21:25 BP 104/53 L 06/17/17 21:25 Pulse Ox 94 L 06/17/17 21:25 - Orders/Labs/Meds Orders: Active Orders 24 hr Category Date Time Status Cardiac Monitoring [RC] .As Directed Care 06/17/17 21:41 Active EKG Documentation Completion [RC] ASDIRECTED Care 06/17/17 21:41 Active EKG 12 Lead [EK] Stat Ther 06/17/17 21:41 Ordered Labs: Laboratory Tests 06/17/17 06/17/17 Range/Units 21:40 21:40 WBC 11.0 (4.5-11.0) K/uL RBC 4.90 (4.30-5.90) M/uL Hgb 11.2 L (12.0-15.0) g/dL Hct 37.6 L (40.0-54.0) % MCV 77 L (80-98) fL MCH 23 L (27-31) pg MCHC 30 L (32-36) % Plt Count 356 (150-400) K/uL Neut % (Auto) 66 (36-66) % Lymph % (Auto) 11 L (24-44) % [place] % (Auto) 12 H (2-6) % Eos % (Auto) 12 H (2-4) % Baso % (Auto) 0 (0-1) % Sodium 141 (140-148) mmol/L Potassium 3.3 L (3.6-5.2) mmol/L Chloride 100 (100-108) mmol/L Carbon Dioxide 33 H (21-32) mmol/L Anion Gap 11.3 (5.0-14.0) mmol/L BUN 32 H D (7-18) mg/dL Creatinine 1.1 (0.8-1.3) mg/dL Est Cr Clr Drug Dosing 71.89 mL/min Estimated GFR (MDRD) > 60 (>60) Glucose 134 H (74-106) mg/dL Calcium 8.3 L (8.5-10.1) mg/dL Total Bilirubin 0.3 (0.2-1.0) mg/dL AST 16 (15-37) U/L ALT 23 (12-78) U/L Alkaline Phosphatase 64 (46-116) U/L Troponin I < 0.017 (0.000-0.056) ng/mL NT-Pro-B Natriuret Pep 261 H (5-125) pg/mL Total Protein 6.7 (6.4-8.2) g/dL Albumin 3.1 L (3.4-5.0) g/dL Globulin 3.6 H (2.3-3.5) g/dL Albumin/Globulin Ratio 0.9 L (1.2-2.2) Meds: Medications Discontinued Medications Generic Name Dose Route Start Last Admin Trade Name Barb PRN Reason Stop Dose Admin Hydroxyzine HCl 100 mg 06/17/17 21:43 06/17/17 22:11 Vistaril IM 06/17/17 21:44 100 mg ONETIME ONE Administration Departure - Departure Time of Disposition: 22:47 Disposition: Home, Self-Care 01 Condition: Fair Clinical Impression: Pruritic rash - Discharge Information Referrals: Darius Montemayor Sr, MD [Primary Care Provider] - Forms: ED Department Discharge Additional Instructions: Please followup with your primary care provider in 3-5 days if not better, please call return to the emergency department with worsening of symptoms. 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 potassium low at 3.3 consistent hypokalemia, troponin negative, d-dimer slightly elevated at 261 albumin low at 2.1 consistent hypoalbuminemia, EKG demonstrates a sinus rhythm there is no ST changes or depression multiple PVCs appreciated Plan I did review lab work EKG results with him he received 600 mg of Vistaril which provided some relief for his pruritus, he was discharged home after receiving 1 mg Dilaudid IM and 1 mg Ativan by mouth for sleep tonight he will follow-up with his primary care in the next 3-5 days for reevaluation This note was dictated using [employer] voice recognition software please call with any questions on syntax or [email or web address].
[2017-06-17] MEDS ORDERED: LORazepam 1 MG Tab PO ONE (22:45)
[2017-06-17] MEDS ORDERED: HYDROmorphone 1 MG/ML Syringe IM ONE (22:45)
== END 2017-06-17 23:10 | disposition home or self-care (01) ==
LOC: JP.ED 20:29
DX: L29.9 Pruritus, unspecified (principal); I11.0 Hypertensive heart disease with heart failure; I50.9 Heart failure, unspecified; E66.9 Obesity, unspecified; F17.210 Nicotine dependence, cigarettes, uncomplicated; Z88.5 Allergy status to narcotic agent; Z79.899 Other long term (current) drug therapy
CPT/HCPCS: 36415; 80053; 83880; 84484; 85025; 93005; 96372; 99284; A9270; J1170; J3410

== ENCOUNTER 2018-03-15 20:29 | Emergency (ER) | payer MEDICARE, MEDICAID ==
[2018-03-15] MEDS ORDERED: Haloperidol Lactate 5 MG/ML SDV IM ONE (20:37)
[2018-03-15] MEDS ORDERED: Haloperidol Lactate 5 MG/ML SDV ONE (20:38)
[2018-03-15] MEDS ORDERED: LORazepam 2 MG/ML SDV IM ONE (21:06)
--- NOTE | 2018-03-15 21:06 | EDM.PDOC ---
ED HPI GENERAL MEDICAL PROBLEM - General Chief Complaint: Behavioral/Psych Stated Complaint: SLIPPED ON ICE Time Seen by Provider: 03/15/18 20:30 Source of Information: Reports: EMS, Police History Limitations: Reports: Altered Mental Status - History of Present Illness INITIAL COMMENTS - FREE TEXT/NARRATIVE: 63-year-old brought in by police and ambulance because of uncontrolled shaking and jerking movements. He is able to communicate and he understands questions, but he is acting very agitated and has continuous myoclonic larger muscle group jerking of his extremities and head. He is very uncooperative, will not allow blood pressure or any type of history. He tells us his knees are [id number], he has white coat hypertension and he has had a dental pain but otherwise will not provide any more information other than he "gets this way when he doesn't have his medicine". He admits this has happened to him in the past. His daughter called last night and was planning on bringing him in in because he was agitated and acting strangely but he refused to come in. He is very thirsty and asking for water and drinking profusely from a water bottle. Onset: Unknown/Unsure Associated Symptoms: Denies: Chest Pain, Headaches, Nausea/Vomiting, Shortness of Breath - Related Data Allergies Allergy/AdvReac Type Severity Reaction Status Date / Time acetaminophen [From Tylenol] Allergy Ringing in Verified 05/23/17 16:37 the Ears flurbiprofen [From Ansaid] Allergy Abdominal Verified 05/23/17 16:37 Pain propoxyphene Allergy Nausea and Verified 03/15/18 20:43 Vomiting codeine AdvReac Nausea Verified 05/23/17 16:37 Home Meds: Home Meds metOLazone [Metolazone] 5 mg PO DAILY 05/23/17 [History] Amitriptyline [Elavil] 1 - 2 tab PO BEDTIME 06/17/17 [History] Furosemide 20 mg PO BID 06/17/17 [History] Metoprolol Tartrate 50 mg PO BID 06/17/17 [History] Naproxen 500 mg PO Q6HR 06/17/17 [History] hydroCHLOROthiazide [Hydrochlorothiazide] 25 mg PO BID 06/17/17 [History] Tadalafil [Cialis] 5 mg PO DAILY 03/15/18 [History] Valsartan 320 mg PO DAILY 03/15/18 [History] Past Medical History HEENT History: Reports: Other (See Below) Other HEENT History: ears ringing Cardiovascular History: Reports: Heart Failure, Hypertension Gastrointestinal History: Reports: Other (See Below) Other Gastrointestinal History: appy Genitourinary History: Reports: Other (See Below) Other Genitourinary History: cloudy urine Musculoskeletal History: Reports: Other (See Below) Other Musculoskeletal History: 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 Neurological History: Reports: Other (See Below) Other Neuro History: anerysm clipped Psychiatric History: Reports: Depression Endocrine/Metabolic History: Reports: Obesity/BMI 30+ Hematologic History: Reports: Anemia Dermatologic History: Reports: Eczema - Infectious Disease History Infectious Disease History: Reports: Chicken Pox - Past Surgical History GI Surgical History: Reports: Cholecystectomy Other Musculoskeletal Surgeries/Procedures:: Rotator Cuff Surgery Left Social & Family History - Caffeine Use Caffeine Use: Reports: None ED ROS GENERAL - Review of Systems Review Of Systems: Unable To Obtain (Very difficult to obtain, patient is denying any acute symptoms and is very hard to understand, will not cooperate with evaluation) - Physical Exam Exam: See Below Exam Limited By: Other (Persistent large muscle and had myoclonic jerking) General Appearance: Alert, Moderate Distress Eye Exam: Bilateral Eye: EOMI (No disconjugate gaze) Throat/Mouth: Other (Advanced dental decay) Head Exam: Atraumatic Respiratory/Chest: No Respiratory Distress, Lungs Clear Cardiovascular: Regular Rate, Rhythm, Extra Beats GI/Abdominal: Non-Tender Neuro Exam (Abbreviated): Alert, Other (Frequent dramatic large muscle group myoclonic jerking) Psychiatric: Other (Agitated) Skin Exam: Diaphoretic, Pallor (Appears pale and diaphoretic) Course - Vital Signs Last Recorded V/S: Last Vital Signs Temp 99.4 F 03/15/18 21:30 Pulse 92 03/15/18 23:33 Resp 14 03/15/18 23:33 BP 131/85 03/15/18 23:33 Pulse Ox 98 03/15/18 23:33 - Orders/Labs/Meds Labs: Laboratory Tests 03/15/18 03/15/18 03/15/18 Range/Units 21:32 21:32 22:22 WBC 13.8 H (4.5-11.0) K/uL RBC 4.38 (4.30-5.90) M/uL Hgb 8.1 L D (12.0-15.0) g/dL Hct 30.0 L (40.0-54.0) % MCV 69 L (80-98) fL MCH 19 L (27-31) pg MCHC 27 L (32-36) % Plt Count 450 H (150-400) K/uL Neut % (Auto) 85 H (36-66) % Lymph % (Auto) 6 L (24-44) % [place] % (Auto) 7 H (2-6) % Eos % (Auto) 2 (2-4) % Baso % (Auto) 1 (0-1) % Sodium 141 (140-148) mmol/L Potassium 3.8 (3.6-5.2) mmol/L Chloride 105 (100-108) mmol/L Carbon Dioxide 25 (21-32) mmol/L Anion Gap 11.2 (5.0-14.0) mmol/L BUN 33 H (7-18) mg/dL Creatinine 1.6 H (0.8-1.3) mg/dL Est Cr Clr Drug Dosing TNP Estimated GFR (MDRD) 44 L (>60) Glucose 117 H (74-106) mg/dL Calcium 8.9 (8.5-10.1) mg/dL Total Bilirubin 0.4 (0.2-1.0) mg/dL AST 25 (15-37) U/L ALT 28 (12-78) U/L Alkaline Phosphatase 52 (46-116) U/L Total Protein 7.5 (6.4-8.2) g/dL Albumin 3.6 (3.4-5.0) g/dL Globulin 3.9 H (2.3-3.5) g/dL Albumin/Globulin Ratio 0.9 L (1.2-2.2) Urine Color Yellow Urine Appearance Clear Urine pH 5.0 (4.5-8.0) Ur Specific [place] 1.025 (1.008-1.030) Urine Protein Trace (NEGATIVE) mg/dL Urine Glucose (UA) Normal (NEGATIVE) mg/dL Urine Ketones Negative (NEGATIVE) mg/dL Urine Occult Blood Negative (NEGATIVE) Urine Nitrite Negative (NEGAITVE) Urine Bilirubin Negative (NEGATIVE) Urine Urobilinogen Normal (NORMAL) mg/dL Ur Leukocyte Esterase Negative (NEGATIVE) Urine RBC 0-5 (0-5) Urine WBC 0-5 (0-5) Ur Epithelial Cells Rare Amorphous Sediment Rare Urine Bacteria Not seen Urine Mucus Not seen Urine Other Urine Opiates Screen (NEGATIVE) Ur Oxycodone Screen (NEGATIVE) Urine Methadone Screen (NEGATIVE) Ur Propoxyphene Screen (NEGATIVE) Ur Barbiturates Screen (NEGATIVE) Ur Tricyclics Screen (NEGATIVE) Ur Phencyclidine Scrn (NEGATIVE) Ur Amphetamine Screen (NEGATIVE) U Methamphetamines Scrn (NEGATIVE) Urine MDMA Screen (NEGATIVE) U Benzodiazepines Scrn (NEGATIVE) U Cocaine Metab Screen (NEGATIVE) U Marijuana (THC) Screen (NEGATIVE) 03/15/18 Range/Units 22:22 WBC (4.5-11.0) K/uL RBC (4.30-5.90) M/uL Hgb (12.0-15.0) g/dL Hct (40.0-54.0) % MCV (80-98) fL MCH (27-31) pg MCHC (32-36) % Plt Count (150-400) K/uL Neut % (Auto) (36-66) % Lymph % (Auto) (24-44) % [place] % (Auto) (2-6) % Eos % (Auto) (2-4) % Baso % (Auto) (0-1) % Sodium (140-148) mmol/L Potassium (3.6-5.2) mmol/L Chloride (100-108) mmol/L Carbon Dioxide (21-32) mmol/L Anion Gap (5.0-14.0) mmol/L BUN (7-18) mg/dL Creatinine (0.8-1.3) mg/dL Est Cr Clr Drug Dosing Estimated GFR (MDRD) (>60) Glucose (74-106) mg/dL Calcium (8.5-10.1) mg/dL Total Bilirubin (0.2-1.0) mg/dL AST (15-37) U/L ALT (12-78) U/L Alkaline Phosphatase (46-116) U/L Total Protein (6.4-8.2) g/dL Albumin (3.4-5.0) g/dL Globulin (2.3-3.5) g/dL Albumin/Globulin Ratio (1.2-2.2) Urine Color Urine Appearance Urine pH (4.5-8.0) Ur Specific [place] (1.008-1.030) Urine Protein (NEGATIVE) mg/dL Urine Glucose (UA) (NEGATIVE) mg/dL Urine Ketones (NEGATIVE) mg/dL Urine Occult Blood (NEGATIVE) Urine Nitrite (NEGAITVE) Urine Bilirubin (NEGATIVE) Urine Urobilinogen (NORMAL) mg/dL Ur Leukocyte Esterase (NEGATIVE) Urine RBC (0-5) Urine WBC (0-5) Ur Epithelial Cells Amorphous Sediment Urine Bacteria Urine Mucus Urine Other Urine Opiates Screen Negative (NEGATIVE) Ur Oxycodone Screen Negative (NEGATIVE) Urine Methadone Screen Negative (NEGATIVE) Ur Propoxyphene Screen Negative (NEGATIVE) Ur Barbiturates Screen Negative (NEGATIVE) Ur Tricyclics Screen Presumptive positive H (NEGATIVE) Ur Phencyclidine Scrn Negative (NEGATIVE) Ur Amphetamine Screen Presumptive positive H (NEGATIVE) U Methamphetamines Scrn Presumptive positive H (NEGATIVE) Urine MDMA Screen Presumptive positive H (NEGATIVE) U Benzodiazepines Scrn Negative (NEGATIVE) U Cocaine Metab Screen Negative (NEGATIVE) U Marijuana (THC) Screen Negative (NEGATIVE) Meds: Medications Discontinued Medications Generic Name Dose Route Start Last Admin Trade Name Freq PRN Reason Stop Dose Admin Diphenhydramine HCl 100 mg 03/15/18 21:07 03/15/18 21:16 Benadryl IM 03/15/18 21:08 100 mg ONETIME ONE Administration Haloperidol Lactate 10 mg 03/15/18 20:37 03/15/18 20:41 Haldol IM 03/15/18 20:38 10 mg ONETIME ONE Administration Haloperidol Lactate Confirm 03/15/18 20:38 03/15/18 20:41 Haldol Administered 03/15/18 20:39 Not Given Dose 10 mg .ROUTE .STK-MED ONE Lorazepam 2 mg 03/15/18 21:06 03/15/18 21:16 Ativan IM 03/15/18 21:07 2 mg ONETIME ONE Administration - Re-Assessments/Exams Free Text/Narrative Re-Assessment/Exam: 03/16/18 00:07 Initially 10 mg of IM Haldol is given, followed by 100 mg of IM Benadryl and 2 mg of IM Ativan. Over the course of the next 45 minutes the patient finally calmed down and was sedated. We were able to maintain laboratory evaluation as well as a catheter UA specimen. The UA returned normal but the urine tox screen was positive for methamphetamine and ecstasy. His creatinine was 1.6 and GFR 44 , his last levels almost one year ago were normal. Hemoglobin now 8.1, 11.2 8 months ago. Plan is to let the patient sleep off the medications he was given to calm him down and hopefully we can have a meaningful conversation when he wakes up. 03/16/18 05:00 Patient woke up and went to the bathroom, still shaky with slurred speech but improved, went and laid back down. Did not want to talk. 03/16/18 06:53 Patient was still sleeping at change of shift. When he wakes up if stable will be discharged with a diagnosis of methamphetamine intoxication, ecstasy abuse, and anemia. He is to follow-up with his primary doctor when the acute effects of the methamphetamine and ecstasy resolve to evaluate the anemia. Departure - Departure Time of Disposition: 10:31 Disposition: Home, Self-Care 01 Condition: Fair Clinical Impression: Polysubstance abuse, Methamphetamine intoxication Anemia Qualifiers: Anemia type: unspecified type Qualified Code(s): D64.9 - Anemia, unspecified - Discharge Information Instructions: Anemia Referrals: PCP,None [Primary Care Provider] - Forms: ED Department Discharge Care Plan Goals: Stop using illicit drugs such as methamphetamine or ecstasy, and follow-up with your primary doctor in the next 1-2 weeks to discuss anemia and subsequent workup for anemia.
[2018-03-15] MEDS ORDERED: diphenhydrAMINE 50 MG/ML SDV IM ONE (21:07)
[2018-03-15 23:36] VITALS: BP 131/85
== END 2018-03-16 10:31 | disposition home or self-care (01) ==
LOC: JP.ED 20:29
DX: F15.129 Other stimulant abuse with intoxication, unspecified (principal); F19.10 Other psychoactive substance abuse, uncomplicated; D64.9 Anemia, unspecified; K02.9 Dental caries, unspecified; I11.0 Hypertensive heart disease with heart failure; I50.9 Heart failure, unspecified; Z79.899 Other long term (current) drug therapy; Z88.6 Allergy status to analgesic agent; Z88.5 Allergy status to narcotic agent; Z88.8 Allergy status to other drugs, medicaments and biological substances
CPT/HCPCS: 36415; 80053; 80305; 81001; 85025; 96372; 99283; 99285; J1200; J1630; J2060

== ENCOUNTER 2021-02-26 22:42 | Inpatient (IN) | payer MEDICARE, MEDICAID ==
--- NOTE | 2021-02-26 23:08 | EDM.PDOC ---
ED HPI GENERAL MEDICAL PROBLEM - General Chief Complaint: Respiratory Problem Stated Complaint: difficulty breathing Time Seen by Provider: 02/26/21 22:50 Source of Information: Reports: Patient History Limitations: Reports: No Limitations - History of Present Illness INITIAL COMMENTS - FREE TEXT/NARRATIVE: 65-year-old male with COPD, noncompliance arrives with 7 to 10 days of increasing shortness of breath and cough. He is very wheezy, weak, with a frequent cough but no diarrhea. He thinks he has been running fevers at home but has no fever currently. O2 saturations are in the upper 80s on room air. He is unvaccinated for Covid, was checked for Covid a week and a half ago and was negative. Cough is nonproductive. Onset: Gradual Duration: Day(s): (7 to 10 days of symptoms) Associated Symptoms: Reports: Cough, Fever/Chills, Loss of Appetite, Malaise, Shortness of Breath, Weakness - Related Data Allergies Allergy/AdvReac Type Severity Reaction Status Date / Time acetaminophen [From Tylenol] Allergy Ringing in Verified 02/26/21 22:55 the Ears flurbiprofen [From Ansaid] Allergy Abdominal Verified 02/26/21 22:55 Pain propoxyphene Allergy Nausea and Verified 02/26/21 22:55 Vomiting codeine AdvReac Nausea Verified 02/26/21 22:55 Home Meds: Home Meds metOLazone [Metolazone] 5 mg PO DAILY 05/23/17 [History] Amitriptyline [Elavil] 1 - 2 tab PO BEDTIME 06/17/17 [History] Furosemide 20 mg PO BID 06/17/17 [History] Metoprolol Tartrate 50 mg PO BID 06/17/17 [History] Naproxen 500 mg PO Q6HR 06/17/17 [History] hydroCHLOROthiazide [Hydrochlorothiazide] 25 mg PO BID 06/17/17 [History] Valsartan 320 mg PO DAILY 03/15/18 [History] tadalafiL [Cialis] 5 mg PO DAILY 03/15/18 [History] Past Medical History HEENT History: Reports: Other (See Below) Other HEENT History: ears ringing Cardiovascular History: Reports: Heart Failure, Hypertension Gastrointestinal History: Reports: Other (See Below) Other Gastrointestinal History: appy Genitourinary History: Reports: Other (See Below) Other Genitourinary History: cloudy urine Musculoskeletal History: Reports: Other (See Below) 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 Neurological History: Reports: Other (See Below) Other Neuro History: anerysm clipped Psychiatric History: Reports: Depression Endocrine/Metabolic History: Reports: Obesity/BMI 30+ Hematologic History: Reports: Anemia Dermatologic History: Reports: Eczema - Infectious Disease History Infectious Disease History: Reports: Chicken Pox - Past Surgical History GI Surgical History: Reports: Cholecystectomy Musculoskeletal Surgical History: Reports: Other (See Below) Other Musculoskeletal Surgeries/Procedures:: Rotator Cuff Surgery Left Social & Family History - Tobacco Use Tobacco Use Status *Q: Former Tobacco User Used Tobacco, but Quit: Yes Month/Year Tobacco Last Used: 2020 - Caffeine Use Caffeine Use: Reports: None - Recreational Drug Use Recreational Drug Use: Yes Recreational Drug Type: Reports: Marijuana/Hashish Recreational Drug Use Frequency: Weekly ED ROS GENERAL - Review of Systems Review Of Systems: See Below Constitutional: Reports: Fever, Malaise, Decreased Appetite HEENT: Denies: Throat Pain Respiratory: Reports: Shortness of Breath, Wheezing, Cough Cardiovascular: Denies: Chest Pain GI/Abdominal: Denies: Abdominal Pain, Nausea, Vomiting Skin: Reports: No Symptoms Neurological: Reports: Headache (Minimal headache) Psychiatric: Reports: Anxiety ED EXAM, GENERAL - Physical Exam Exam: See Below Exam Limited By: No Limitations General Appearance: Alert, No Apparent Distress, Other Eye Exam: Bilateral Eye: Normal Inspection (Looks uncomfortable but not distressed) Head: Atraumatic Neck: Supple, Non-Tender Respiratory/Chest: Respiratory Distress (Diffuse inspiratory and expiratory wheezes) Cardiovascular: Regular Rate, Rhythm GI/Abdominal: Soft, Non-Tender Extremities: Normal Inspection Neurological: Alert, Oriented Psychiatric: Anxious Skin Exam: Warm, Dry Course - Vital Signs Last Recorded V/S: Last Vital Signs Temp 97.8 F 02/27/21 01:27 Pulse 115 H 02/27/21 01:27 Resp 20 02/27/21 01:27 BP 119/69 02/26/21 23:48 Pulse Ox 93 L 02/27/21 01:27 - Orders/Labs/Meds Orders: Active Orders 24 hr Category Date Time Status RT Post Treatment Assessment [RC] Click to Edit Care 02/26/21 23:51 Active Chest 1V Frontal [CR] Stat Exams 02/26/21 23:05 Taken Isolation [COMM] Stat Oth 02/26/21 23:05 Ordered Medication Orders Albuterol (Albuterol 8 Gm Inhaler) 0 gm INH Q2H PRN PRN Reason: Cough Albuterol/Ipratropium (Albuterol/Ipratropium 4 Gm Inhalation Dayhoit) 0 gm INH Q4H PRN PRN Reason: Dyspnea Amitriptyline HCl (Amitriptyline 25 Mg Tab) 25 - 50 mg PO BEDTIME DAVIDE Dexamethasone (Dexamethasone 4 Mg/Ml Sdv) 6 mg IVPUSH DAILY DAVIDE Stop: 03/07/21 09:01 Docusate Sodium (Docusate Sodium 100 Mg Cap) 100 mg PO BID PRN PRN Reason: Constipation Enoxaparin Sodium (Enoxaparin 40 Mg/0.4 Ml Syringe) 40 mg SUBCUT DAILY DAVIDE Furosemide (Furosemide 20 Mg Tab) 20 mg PO BIDDIURETIC [facility] Hydrochlorothiazide (Hydrochlorothiazide 25 Mg Tab) 25 mg PO BID DAVIDE Remdesivir 200 mg/ Sodium (Chloride) 250 mls @ 250 mls/hr IV ONETIME ONE Stop: 02/27/21 02:31 Remdesivir 100 mg/ Sodium (Chloride) 100 mls @ 100 mls/hr IV Q24H DAVIDE Stop: 03/03/21 21:59 Ibuprofen (Ibuprofen 800 Mg Tab) 800 mg PO Q8H PRN PRN Reason: Fever Insulin Human Lispro (Insulin Lispro 100 Unit/Ml 3 Ml Kwikpen) 0 unit SUBCUT QIDACANDBED DAVIDE; Protocol Lorazepam (Lorazepam 2 Mg/Ml Sdv) 1 mg IV Q6H PRN PRN Reason: Anxiety Losartan Potassium (Losartan 50 Mg Tab) 150 mg PO DAILY [facility] Metolazone (Metolazone 2.5 Mg Tab) 5 mg PO DAILY [facility] Metoprolol Tartrate (Metoprolol Tartrate 50 Mg Tab) 50 mg PO BID DAVIDE Morphine Sulfate (Morphine 2 Mg/Ml Syringe) 2 mg IVPUSH Q2H PRN PRN Reason: Pain (severe 7-10) Ondansetron HCl (Ondansetron 4 Mg Tab.Dis) 4 mg PO Q6H PRN PRN Reason: Nausea able to take PO Oxycodone HCl (Oxycodone 5 Mg Tab) 5 mg PO Q4H PRN PRN Reason: Pain (moderate 4-6) Pantoprazole Sodium (Pantoprazole 40 Mg Vial) 40 mg IVPUSH DAILY@0730 [facility] Labs: Laboratory Tests 02/26/21 02/26/21 02/26/21 Range/Units 23:04 23:18 23:18 WBC 5.4 (4.5-11.0) K/uL RBC 5.32 (4.30-5.90) M/uL Hgb 13.5 D (12.0-15.0) g/dL Hct 42.9 (40.0-54.0) % MCV 81 (80-98) fL MCH 25 L (27-31) pg MCHC 32 (32-36) % Plt Count 175 (150-400) K/uL Neut % (Auto) 71.0 H (36-66) % Lymph % (Auto) 14.6 L (24-44) % [place] % (Auto) 14.2 H (2-6) % Eos % (Auto) 0.0 L (2-4) % Baso % (Auto) 0.2 (0-1) % Sodium 133 L (140-148) mmol/L Potassium 4.1 (3.6-5.2) mmol/L Chloride 97 L (100-108) mmol/L Carbon Dioxide 30 (21-32) mmol/L Anion Gap 10.1 (5.0-14.0) mmol/L BUN 19 H (7-18) mg/dL Creatinine 1.0 (0.8-1.3) mg/dL Est Cr Clr Drug Dosing 80.83 mL/min Estimated GFR (MDRD) > 60 (>60) Glucose 131 H (74-106) mg/dL Lactic Acid (0.4-2.0) mmol/L Calcium 8.0 L (8.5-10.1) mg/dL Total Bilirubin 0.4 (0.2-1.0) mg/dL AST 60 H D (15-37) U/L ALT 45 (12-78) U/L Alkaline Phosphatase 45 L (46-116) U/L C-Reactive Protein (0.0-0.3) mg/dL Total Protein 7.0 (6.4-8.2) g/dL Albumin 3.1 L (3.4-5.0) g/dL Globulin 3.9 H (2.3-3.5) g/dL Albumin/Globulin Ratio 0.8 L (1.2-2.2) Influenza Type A RNA Negative (NEGATIVE) RSV RNA (INAAT) Negative (NEGATIVE) Influenza Type B RNA Negative (NEGATIVE) SARS-CoV-2 RNA (KASIA) Positive H (NEGATIVE) 02/26/21 02/26/21 Range/Units 23:18 23:18 WBC (4.5-11.0) K/uL RBC (4.30-5.90) M/uL Hgb (12.0-15.0) g/dL Hct (40.0-54.0) % MCV (80-98) fL MCH (27-31) pg MCHC (32-36) % Plt Count (150-400) K/uL Neut % (Auto) (36-66) % Lymph % (Auto) (24-44) % [place] % (Auto) (2-6) % Eos % (Auto) (2-4) % Baso % (Auto) (0-1) % Sodium (140-148) mmol/L Potassium (3.6-5.2) mmol/L Chloride (100-108) mmol/L Carbon Dioxide (21-32) mmol/L Anion Gap (5.0-14.0) mmol/L BUN (7-18) mg/dL Creatinine (0.8-1.3) mg/dL Est Cr Clr Drug Dosing mL/min Estimated GFR (MDRD) (>60) Glucose (74-106) mg/dL Lactic Acid 0.9 (0.4-2.0) mmol/L Calcium (8.5-10.1) mg/dL Total Bilirubin (0.2-1.0) mg/dL AST (15-37) U/L ALT (12-78) U/L Alkaline Phosphatase (46-116) U/L C-Reactive Protein 3.05 H (0.0-0.3) mg/dL Total Protein (6.4-8.2) g/dL Albumin (3.4-5.0) g/dL Globulin (2.3-3.5) g/dL Albumin/Globulin Ratio (1.2-2.2) Influenza Type A RNA (NEGATIVE) RSV RNA (INAAT) (NEGATIVE) Influenza Type B RNA (NEGATIVE) SARS-CoV-2 RNA (KASIA) (NEGATIVE) Meds: Medications Generic Name Dose Route Start Last Admin Trade Name Freq PRN Reason Stop Dose Admin Albuterol 0 gm 02/27/21 01:32 Albuterol 8 Gm Inhaler INH Q2H PRN Cough Albuterol/Ipratropium 0 gm 02/27/21 01:32 Albuterol/Ipratropium 4 Gm Inhalation Dayhoit INH Q4H PRN Dyspnea Amitriptyline HCl 25 - 50 mg 02/27/21 21:00 Amitriptyline 25 Mg Tab PO BEDTIME [facility] Dexamethasone 6 mg 02/27/21 01:32 Dexamethasone 4 Mg/Ml Sdv IVPUSH 03/07/21 09:01 DAILY [facility] Docusate Sodium 100 mg 02/27/21 01:32 Docusate Sodium 100 Mg Cap PO BID PRN Constipation Enoxaparin Sodium 40 mg 02/27/21 01:32 Enoxaparin 40 Mg/0.4 Ml Syringe SUBCUT DAILY [facility] Furosemide 20 mg 02/27/21 01:32 Furosemide 20 Mg Tab PO BIDDIURETIC [facility] Hydrochlorothiazide 25 mg 02/27/21 01:32 Hydrochlorothiazide 25 Mg Tab PO BID [facility] Remdesivir 200 mg/ Sodium 250 mls @ 250 mls/hr 02/27/21 01:32 Chloride IV 02/27/21 02:31 ONETIME ONE Remdesivir 100 mg/ Sodium 100 mls @ 100 mls/hr 02/28/21 21:00 Chloride IV 03/03/21 21:59 Q24H [facility] Ibuprofen 800 mg 02/27/21 01:41 Ibuprofen 800 Mg Tab PO Q8H PRN Fever Insulin Human Lispro 0 unit 02/27/21 07:00 Insulin Lispro 100 Unit/Ml 3 Ml Kwikpen SUBCUT QIDACANDBED [facility] Protocol Lorazepam 1 mg 02/27/21 01:32 Lorazepam 2 Mg/Ml Sdv IV Q6H PRN Anxiety Losartan Potassium 150 mg 02/27/21 09:00 Losartan 50 Mg Tab PO DAILY [facility] Metolazone 5 mg 02/27/21 09:00 Metolazone 2.5 Mg Tab PO DAILY [facility] Metoprolol Tartrate 50 mg 02/27/21 01:32 Metoprolol Tartrate 50 Mg Tab PO BID [facility] Morphine Sulfate 2 mg 02/27/21 01:32 Morphine 2 Mg/Ml Syringe IVPUSH Q2H PRN Pain (severe 7-10) Ondansetron HCl 4 mg 02/27/21 01:32 Ondansetron 4 Mg Tab.Dis PO Q6H PRN Nausea able to take PO Oxycodone HCl 5 mg 02/27/21 01:32 Oxycodone 5 Mg Tab PO Q4H PRN Pain (moderate 4-6) Pantoprazole Sodium 40 mg 02/27/21 07:30 Pantoprazole 40 Mg Vial IVPUSH DAILY@0730 [facility] Discontinued Medications Generic Name Dose Route Start Last Admin Trade Name Freq PRN Reason Stop Dose Admin Albuterol 0 gm 02/26/21 23:51 02/26/21 23:59 Albuterol 8 Gm Inhaler INH 02/26/21 23:52 2 puff ONETIME ONE Administration Albuterol/Ipratropium 3 ml 02/26/21 23:15 02/27/21 01:29 Albuterol/Ipratropium 3.0-0.5 Mg/3 Ml Neb Soln NEB 02/26/21 23:16 Not Given ONETIME ONE - Re-Assessments/Exams Free Text/Narrative Re-Assessment/Exam: 02/26/21 23:21 Patient was satting in the upper 80s so supplemental nasal cannula oxygen was placed. He was given a DuoNeb, a 1 view chest x-ray was obtained as well as a CBC and BMP and a Covid 4 Plex viral test obtained. 02/27/21 00:12 Chest x-ray shows minimal scattered infiltrates typical of Covid, white count is normal, CRP is only 5 but Covid did return positive. Even after a couple of puffs of albuterol, the patient still remained in the mid 80s saturations without oxygen. He will need to be admitted for acute treatment with O2 supplementation and Covid therapy with remdesivir and dexamethasone. Palak Velazquez of the hospitalist service kindly agreed to see the patient and assess for admission. Departure - Departure Time of Disposition: 01:28 Disposition: Admitted As Inpatient 66 Clinical Impression: COVID-19, Hypoxia - Discharge Information Sepsis Event Note (ED) - Focused Exam Vital Signs: Vital Signs Temp Pulse Resp BP Pulse Ox 02/26/21 23:48 117 H 20 119/69 89 L 02/26/21 23:09 97.8 F 117 H 26 H 131/92 H 86 L - My Orders Last 24 Hours: My Active Orders 02/26/21 23:05 Chest 1V Frontal [CR] Stat Isolation [COMM] Stat 02/26/21 23:51 RT Post Treatment Assessment [RC] Click to Edit - Assessment/Plan Last 24 Hours: My Active Orders 02/26/21 23:05 Chest 1V Frontal [CR] Stat Isolation [COMM] Stat 02/26/21 23:51 RT Post Treatment Assessment [RC] Click to Edit
[2021-02-26] MEDS ORDERED: Albuterol/Ipratropium 3.0-0.5 MG/3 ML Neb Soln NEB ONE (23:15)
[2021-02-26 23:48] LABS: CORONAVIRUS COVID-19 NAA POSITIVE (NEGATIVE)
[2021-02-26] MEDS ORDERED: Albuterol 8 GM Inhaler INH ONE (23:51)
--- NOTE | 2021-02-27 01:13 | PCM.HP.2 ---
H&P History of Present Illness - General Date of Service: 02/26/21 Admit Problem/Dx: Admission Diagnosis/Problem Admission Diagnosis/Problem Hypoxia Source of Information: Patient, Provider, RN History Limitations: Reports: Respiratory Distress - History of Present Illness Initial Comments - Free Text/Narative: chief complaint: Shortness of breath copy from ER noted. INITIAL COMMENTS - FREE TEXT/NARRATIVE: 65-year-old male with COPD, noncompliance arrives with 7 to 10 days of increasing shortness of breath and cough. He is very wheezy, weak, with a frequent cough but no diarrhea. He thinks he has been running fevers at home but has no fever currently. O2 saturations are in the upper 80s on room air. He is unvaccinated for Covid, was checked for Covid a week and a half ago and was negative. Cough is nonproductive. Onset: Gradual Duration: Day(s): (7 to 10 days of symptoms) Associated Symptoms: Reports: Cough, Fever/Chills, Loss of Appetite, Malaise, Shortness of Breath, Weakness Onset of Symptoms: Reports: Gradual Duration of Symptoms: Reports: Day(s): (1.5 weeks), Getting Worse Location: Reports: Generalized Severity: Severe Improves with: Reports: Rest Worsens with: Reports: Movement Context: Reports: Sick Contact Associated Symptoms: Reports: Cough, Fever/Chills, Loss of Appetite, Malaise, Shortness of Breath, Weakness - Related Data Allergies/Adverse Reactions: Allergies Allergy/AdvReac Type Severity Reaction Status Date / Time acetaminophen [From Tylenol] Allergy Ringing in Verified 02/26/21 22:55 the Ears flurbiprofen [From Ansaid] Allergy Abdominal Verified 02/26/21 22:55 Pain propoxyphene Allergy Nausea and Verified 02/26/21 22:55 Vomiting codeine AdvReac Nausea Verified 02/26/21 22:55 Home Medications: Home Meds metOLazone [Metolazone] 5 mg PO DAILY 05/23/17 [History] Amitriptyline [Elavil] 1 - 2 tab PO BEDTIME 06/17/17 [History] Furosemide 20 mg PO BID 06/17/17 [History] Metoprolol Tartrate 50 mg PO BID 06/17/17 [History] Naproxen 500 mg PO Q6HR 06/17/17 [History] hydroCHLOROthiazide [Hydrochlorothiazide] 25 mg PO BID 06/17/17 [History] Valsartan 320 mg PO DAILY 03/15/18 [History] tadalafiL [Cialis] 5 mg PO DAILY 03/15/18 [History] Past Medical History HEENT History: Reports: Other (See Below) Other HEENT History: ears ringing Cardiovascular History: Reports: Heart Failure, Hypertension Gastrointestinal History: Reports: Other (See Below) Other Gastrointestinal History: appy Genitourinary History: Reports: Other (See Below) Other Genitourinary History: cloudy urine Musculoskeletal History: Reports: Other (See Below) Other Musculoskeletal History: work at the [employer] since then has had pain in arm and back Neurological History: Reports: Other (See Below) Other Neuro History: anerysm clipped Psychiatric History: Reports: Depression Endocrine/Metabolic History: Reports: Obesity/BMI 30+ Hematologic History: Reports: Anemia Dermatologic History: Reports: Eczema - Infectious Disease History Infectious Disease History: Reports: Chicken Pox - Past Surgical History GI Surgical History: Reports: Cholecystectomy Musculoskeletal Surgical History: Reports: Other (See Below) Other Musculoskeletal Surgeries/Procedures:: Rotator Cuff Surgery Left Social & Family History - Tobacco Use Tobacco Use Status *Q: Former Tobacco User Used Tobacco, but Quit: Yes Month/Year Tobacco Last Used: 2020 - Caffeine Use Caffeine Use: Reports: None - Recreational Drug Use Recreational Drug Use: Yes Recreational Drug Type: Reports: Marijuana/Hashish Recreational Drug Use Frequency: Weekly - Living Situation & Occupation Living situation: Reports: Occupation: Retired H&P Review of Systems - Review of Systems: Review Of Systems: See Below General: Reports: Fever, Chills, Weakness, Fatigue, Decreased Appetite HEENT: Reports: No Symptoms Pulmonary: Reports: Shortness of Breath, Wheezing, Pleuritic Chest Pain, Cough, Sputum Cardiovascular: Reports: No Symptoms Gastrointestinal: Reports: No Symptoms Genitourinary: Reports: No Symptoms Musculoskeletal: Reports: No Symptoms Skin: Reports: No Symptoms Psychiatric: Reports: No Symptoms Neurological: Reports: No Symptoms Hematologic/Lymphatic: Reports: No Symptoms Immunologic: Reports: No Symptoms Exam - Exam Exam: See Below - Vital Signs Vital Signs: Last Vital Signs Temp 97.8 F 02/26/21 23:09 Pulse 117 H 02/26/21 23:48 Resp 20 02/26/21 23:48 BP 119/69 02/26/21 23:48 Pulse Ox 89 L 02/26/21 23:48 Weight: 300 lb - Exam Quality Assessment: Supplemental Oxygen, DVT Prophylaxis General: Alert, Oriented, Cooperative, Moderate Distress, Other (tall large adult man laying on his side with labored breathing. able to speak in short sentences. fatigue) HEENT: PERRLA Neck: Supple, Trachea Midline, 2 Lungs: Decreased Breath Sounds, Wheezing (inspiratory and expiratory wheeze) Cardiovascular: Regular Rate, Regular Rhythm, Normal S1, Normal S2 GI/Abdominal Exam: Normal Bowel Sounds, Soft, Non-Tender, No Organomegaly, No Distention (Male) Exam: Deferred Rectal (Males) Exam: Deferred Back Exam: Normal Inspection, Full Range of Motion, NT Extremities: Normal Inspection, Normal Range of Motion, Non-Tender, No Pedal Edema, Normal Capillary Refill Peripheral Pulses: 2+: Brachial (R), Radial (L), Dorsalis Pedis (L), Dorsalis Pedis (R) Skin: Warm, Dry, Intact Neurological: Strength Equal Bilateral Neuro Extensive - Mental Status: Alert, Oriented x3, Memory Intact Psychiatric: Anxious - Patient Data Lab Results Last 24 hrs: Laboratory Results - last 24 hr 02/26/21 02/26/21 02/26/21 Range/Units 23:04 23:18 23:18 WBC 5.4 (4.5-11.0) K/uL RBC 5.32 (4.30-5.90) M/uL Hgb 13.5 D (12.0-15.0) g/dL Hct 42.9 (40.0-54.0) % MCV 81 (80-98) fL MCH 25 L (27-31) pg MCHC 32 (32-36) % Plt Count 175 (150-400) K/uL Neut % (Auto) 71.0 H (36-66) % Lymph % (Auto) 14.6 L (24-44) % [place] % (Auto) 14.2 H (2-6) % Eos % (Auto) 0.0 L (2-4) % Baso % (Auto) 0.2 (0-1) % Sodium 133 L (140-148) mmol/L Potassium 4.1 (3.6-5.2) mmol/L Chloride 97 L (100-108) mmol/L Carbon Dioxide 30 (21-32) mmol/L Anion Gap 10.1 (5.0-14.0) mmol/L BUN 19 H (7-18) mg/dL Creatinine 1.0 (0.8-1.3) mg/dL Est Cr Clr Drug Dosing 80.83 mL/min Estimated GFR (MDRD) > 60 (>60) Glucose 131 H (74-106) mg/dL Lactic Acid (0.4-2.0) mmol/L Calcium 8.0 L (8.5-10.1) mg/dL Total Bilirubin 0.4 (0.2-1.0) mg/dL AST 60 H D (15-37) U/L ALT 45 (12-78) U/L Alkaline Phosphatase 45 L (46-116) U/L C-Reactive Protein (0.0-0.3) mg/dL Total Protein 7.0 (6.4-8.2) g/dL Albumin 3.1 L (3.4-5.0) g/dL Globulin 3.9 H (2.3-3.5) g/dL Albumin/Globulin Ratio 0.8 L (1.2-2.2) Influenza Type A RNA Negative (NEGATIVE) RSV RNA (INAAT) Negative (NEGATIVE) Influenza Type B RNA Negative (NEGATIVE) SARS-CoV-2 RNA (KASIA) Positive H (NEGATIVE) 02/26/21 02/26/21 Range/Units 23:18 23:18 WBC (4.5-11.0) K/uL RBC (4.30-5.90) M/uL Hgb (12.0-15.0) g/dL Hct (40.0-54.0) % MCV (80-98) fL MCH (27-31) pg MCHC (32-36) % Plt Count (150-400) K/uL Neut % (Auto) (36-66) % Lymph % (Auto) (24-44) % Marathon % (Auto) (2-6) % Eos % (Auto) (2-4) % Baso % (Auto) (0-1) % Sodium (140-148) mmol/L Potassium (3.6-5.2) mmol/L Chloride (100-108) mmol/L Carbon Dioxide (21-32) mmol/L Anion Gap (5.0-14.0) mmol/L BUN (7-18) mg/dL Creatinine (0.8-1.3) mg/dL Est Cr Clr Drug Dosing mL/min Estimated GFR (MDRD) (>60) Glucose (74-106) mg/dL Lactic Acid 0.9 (0.4-2.0) mmol/L Calcium (8.5-10.1) mg/dL Total Bilirubin (0.2-1.0) mg/dL AST (15-37) U/L ALT (12-78) U/L Alkaline Phosphatase (46-116) U/L C-Reactive Protein 3.05 H (0.0-0.3) mg/dL Total Protein (6.4-8.2) g/dL Albumin (3.4-5.0) g/dL Globulin (2.3-3.5) g/dL Albumin/Globulin Ratio (1.2-2.2) Influenza Type A RNA (NEGATIVE) RSV RNA (INAAT) (NEGATIVE) Influenza Type B RNA (NEGATIVE) SARS-CoV-2 RNA (KASIA) (NEGATIVE) Result Diagrams: 02/26/21 23:18 02/26/21 23:18 Sepsis Event Note - Evaluation Sepsis Screening Result: No Definite Risk - Focused Exam Vital Signs: Vital Signs Temp Pulse Resp BP Pulse Ox 02/26/21 23:48 117 H 20 119/69 89 L 02/26/21 23:09 97.8 F 117 H 26 H 131/92 H 86 L - Problem List (1) COVID-19 SNOMED Code(s): 200437235 ICD Code: U07.1 - COVID-19 Status: Acute Current Visit: Yes (2) CHF (congestive heart failure) SNOMED Code(s): 52339599 ICD Code: I50.9 - HEART FAILURE, UNSPECIFIED Status: Acute Current Visit: No (3) HTN, Benign essential hypertension SNOMED Code(s): 4842509 ICD Code: I10 - ESSENTIAL (PRIMARY) HYPERTENSION Status: Chronic Current Visit: No (4) Diabetes mellitus SNOMED Code(s): 12479085 ICD Code: E11.9 - TYPE 2 DIABETES MELLITUS WITHOUT COMPLICATIONS Status: Acute Priority: Low Current Visit: Yes Qualifiers: Diabetes mellitus type: type 2 Diabetes mellitus senior care insulin use: w ithout ocean transportation intermediary use Diabetes mellitus complication status: without compl ication Qualified Code(s): E11.9 - Type 2 diabetes mellitus without compl ications Problem List Initiated/Reviewed/Updated: Yes Orders Last 24hrs: Active Orders 24 hr Category Date Time Status Patient Status Manage Transfer [TRANSFER] Routine ADT 02/27/21 00:32 Active RT Post Treatment Assessment [RC] Click to Edit Care 02/26/21 23:51 Active Chest 1V Frontal [CR] Stat Exams 02/26/21 23:05 Taken Isolation [COMM] Stat Oth 02/26/21 23:05 Ordered Resuscitation Status Routine Resus Stat 02/27/21 00:36 Ordered Assessment/Plan Comment:: Assessment/Plan Comment:: ASSESSMENT AND PLAN - COVID-19 PNEUMONIA, DIABETES TYPE 2, HYPERTENSION, CHF chief complaint; complications of Covid-19 This is a 65 year old male present to the ER with , unvaccinated. He reports has been sick for about one and half weeks. Tonight- just couldn't breath and came to the ER. His is also sick. Reports worsen cough, shortness of breath,fever, chills, bone and muscle pain. In ER - he was noted to have oxygen saturation in low 80's, productive cough, respiratory distress. had one view chest which did not show infiltrates, CBC, Chemistries, Covid +, urine, INR, PT, ABG, D-dimer plan to admit for further care and treatment. COVID-19 pneumonia-complicated by hypoxia.weakness, nausea and vomiting. Lactic acid elevated will add antibiotic for bacterial coverage. -Covid precautions and isolation -Prone ventilation as possible -Dexamethasone 6 mg po daily -Lovenox 40 mg subcut. Every 24 hours -Albuterol inhaler 2 puffs every 4 hours as needed for shortness of breath -Atrovent inhaler 1 puff 4 times a day -IV Remdesivir 200mg x1, then IV Remdesivir 100 mg daily x 4 days -oxygen therapy to keep oxygen saturation >90% -Repeat labs including CBC, BMP, CRP and D-dimer in the morning Congestive Heart Failure -I&O -Metolazone 5 mg daily -Lasix 20 mg po bid -valsartan 320 mg daily Diabetes type 2 diet controlled -POC blood glucose testing before meals -low dose Sliding scale insulin Hypertension-blood pressure control acceptable- hold blood pressure medication for blood pressure systolic less than 110 -continue HCTZ 25 mg tablet daily -Metoprolol 50 mg po po bid -monitor blood pressure every shift. Maintenance issues - - DVT prophylaxis - Lovenox 40 mg every 24 hours - GI prophylaxis -PPI - Nutrition - Consistent carb diet - Pérez catheter -not indicated at this time CODE STATUS - FULL Admission justification -this patient will be admitted for inpatient services and is medically appropriate meeting medical necessity for inpatient admission as outlined in my documentation. I reasonably expect the patient will require inpatient services that span a period time over 2 midnights. I reasonably expect this patient to be discharged or transferred within 96 hours [facility]. Disposition -home with family Primary care physician - [facility] - Dr. Mis M.D. - Mortality Measure Prognosis:: Good
[2021-02-27] MEDS ORDERED: REMDESIVIR 200 MG in Sodium Chloride 0.9% 250 ML IV ONE (01:32)
[2021-02-27] MEDS ORDERED: Ondansetron 4 MG Tab.DIS PO PRN (01:32)
[2021-02-27] MEDS ORDERED: Docusate Sodium 100 MG Cap PO PRN (01:32)
[2021-02-27] MEDS ORDERED: Morphine 2 MG/ML SYRINGE IVPUSH PRN (01:32)
[2021-02-27] MEDS ORDERED: LORazepam 2 MG/ML SDV IV PRN (01:32)
[2021-02-27] MEDS ORDERED: Enoxaparin 40 MG/0.4 ML Syringe SUBCUT SCH (01:32)
[2021-02-27] MEDS ORDERED: oxyCODONE 5 MG Tab PO PRN (01:32)
[2021-02-27] MEDS ORDERED: Albuterol/Ipratropium 4 GM Inhalation Spray INH PRN (01:32)
[2021-02-27] MEDS ORDERED: Albuterol 8 GM Inhaler INH PRN (01:32)
[2021-02-27] MEDS ORDERED: Dexamethasone 4 MG/ML SDV IVPUSH SCH (01:32)
[2021-02-27] MEDS ORDERED: Ibuprofen 800 MG Tab PO PRN (01:41)
[2021-02-27] MEDS: Metoprolol Tartrate 50 MG Tab PO SCH ×3 (02:16→20:36)
[2021-02-27] MEDS: Furosemide 20 MG Tab PO SCH ×3 (02:16→13:51)
[2021-02-27] MEDS: Hydrochlorothiazide 25 MG Tab PO SCH ×3 (02:16→20:35)
[2021-02-27] MEDS ORDERED: Benzonatate 100 MG Cap PO PRN ×2 (02:53→02:59)
[2021-02-27] MEDS ORDERED: guaiFENesin 100 MG/5 ML Soln ML (118 ML Bottle) PO PRN (02:56)
[2021-02-27] MEDS: Pantoprazole 40 MG Vial IVPUSH SCH (09:00)
[2021-02-27] MEDS: Insulin Lispro 100 Unit/ML 3 ML KwikPen SUBCUT SCH ×4 (09:21→20:42)
--- NOTE | 2021-02-27 09:29 | CR ---
CHEST: Portable 02/26/2021 11:24 PM CLINICAL HISTORY:SOB, cough COMPARISON:09/28/2020 FINDINGS: Heart is enlarged. There is a very large hiatal hernia similar to prior study. Pulmonary vascularity is cephalized. There are atherosclerotic changes in the aorta. There is some generalized interstitial prominence. This is exaggerated by patient's large size. IMPRESSION: Cardiomegaly with vascular cephalization. This may represent some pulmonary venous hypertension. Generalized increase in lung markings may represent some mild interstitial edema. CHF is a consideration. Pneumonitis is not excluded. Clinical correlation is a cyst.
[2021-02-27] MEDS: Losartan 50 MG Tab PO SCH (09:40)
[2021-02-27] MEDS: Metolazone 2.5 MG Tab PO SCH (09:42)
--- NOTE | 2021-02-27 13:42 | PCM.PN ---
- General Info Date of Service: 02/27/21 Subjective Update: Mr. Villa was admitted through the emergency department last night with cough, shortness of breath, and hypoxia, secondary to COVID-19 infection. He has been started on therapy with dexamethasone and remdesivir. He is remained fairly stable through the night on 2 L of oxygen via nasal cannula. He is noted no improvement in shortness of breath or cough since admission. Functional Status: Reports: Urinating - Review of Systems General: Reports: Fever, Weakness, Fatigue, Chills Pulmonary: Reports: Shortness of Breath, Cough, Sputum. Denies: Pleuritic Chest Pain, Hemoptysis, Wheezing Cardiovascular: Reports: Dyspnea on Exertion. Denies: Chest Pain, Palpitations, Orthopnea, PND, Edema, Lightheadedness Gastrointestinal: Reports: No Symptoms Genitourinary: Reports: No Symptoms - Patient Data Vitals - Most Recent: Last Vital Signs Temp 96.6 F L 02/27/21 12:24 Pulse 64 02/27/21 12:24 Resp 14 02/27/21 12:24 BP 102/48 L 02/27/21 12:24 Pulse Ox 89 L 02/27/21 12:24 Weight - Most Recent: 286 lb I&O - Last 24 Hours: Intake & Output 02/26/21 02/27/21 02/27/21 22:59 06:59 14:59 Intake Total 100 Output Total 250 Balance -150 Lab Results Last 24 Hours: Laboratory Results - last 24 hr 02/26/21 02/26/21 02/26/21 Range/Units 23:04 23:18 23:18 WBC 5.4 (4.5-11.0) K/uL RBC 5.32 (4.30-5.90) M/uL Hgb 13.5 D (12.0-15.0) g/dL Hct 42.9 (40.0-54.0) % MCV 81 (80-98) fL MCH 25 L (27-31) pg MCHC 32 (32-36) % Plt Count 175 (150-400) K/uL Neut % (Auto) 71.0 H (36-66) % Lymph % (Auto) 14.6 L (24-44) % [place] % (Auto) 14.2 H (2-6) % Eos % (Auto) 0.0 L (2-4) % Baso % (Auto) 0.2 (0-1) % APTT (21.4-31.8) sec D-Dimer, Quantitative (0.0-500.0) ng/mL Puncture Site ABG pH (7.350-7.450) ABG pCO2 (35.0-42.0) mmHg ABG pO2 (75.0-100.0) mmHg ABG HCO3 (22.0-26.0) mmol/L ABG Total CO2 (23.0-27.0) mmol/L ABG O2 Saturation (95.0-98.0) % ABG O2 Content (15.0-23.0) %vol ABG Base Excess mm/L ABG Hemoglobin (13.5-18.0) g/dL ABG Oxyhemoglobin % ABG Carboxyhemoglobin (0.0-1.6) % ABG Methemoglobin % Aston Test O2 Delivery Device Oxygen Flow Rate L Sodium 133 L (140-148) mmol/L Potassium 4.1 (3.6-5.2) mmol/L Chloride 97 L (100-108) mmol/L Carbon Dioxide 30 (21-32) mmol/L Anion Gap 10.1 (5.0-14.0) mmol/L BUN 19 H (7-18) mg/dL Creatinine 1.0 (0.8-1.3) mg/dL Est Cr Clr Drug Dosing 80.83 mL/min Estimated GFR (MDRD) > 60 (>60) Glucose 131 H (74-106) mg/dL POC Glucose (74-106) mg/dL Lactic Acid (0.4-2.0) mmol/L Calcium 8.0 L (8.5-10.1) mg/dL Ferritin (8-388) ng/ml Total Bilirubin 0.4 (0.2-1.0) mg/dL Direct Bilirubin (0.0-0.2) mg/dL Indirect Bilirubin AST 60 H D (15-37) U/L ALT 45 (12-78) U/L Alkaline Phosphatase 45 L (46-116) U/L Lactate Dehydrogenase (85-227) U/L C-Reactive Protein (0.0-0.3) mg/dL Total Protein 7.0 (6.4-8.2) g/dL Albumin 3.1 L (3.4-5.0) g/dL Globulin 3.9 H (2.3-3.5) g/dL Albumin/Globulin Ratio 0.8 L (1.2-2.2) Influenza Type A RNA Negative (NEGATIVE) RSV RNA (INAAT) Negative (NEGATIVE) Influenza Type B RNA Negative (NEGATIVE) SARS-CoV-2 RNA (KASIA) Positive H (NEGATIVE) 02/26/21 02/26/21 02/27/21 Range/Units 23:18 23:18 01:36 WBC (4.5-11.0) K/uL RBC (4.30-5.90) M/uL Hgb (12.0-15.0) g/dL Hct (40.0-54.0) % MCV (80-98) fL MCH (27-31) pg MCHC (32-36) % Plt Count (150-400) K/uL Neut % (Auto) (36-66) % Lymph % (Auto) (24-44) % [place] % (Auto) (2-6) % Eos % (Auto) (2-4) % Baso % (Auto) (0-1) % APTT (21.4-31.8) sec D-Dimer, Quantitative (0.0-500.0) ng/mL Puncture Site ABG pH (7.350-7.450) ABG pCO2 (35.0-42.0) mmHg ABG pO2 (75.0-100.0) mmHg ABG HCO3 (22.0-26.0) mmol/L ABG Total CO2 (23.0-27.0) mmol/L ABG O2 Saturation (95.0-98.0) % ABG O2 Content (15.0-23.0) %vol ABG Base Excess mm/L ABG Hemoglobin (13.5-18.0) g/dL ABG Oxyhemoglobin % ABG Carboxyhemoglobin (0.0-1.6) % ABG Methemoglobin % Aston Test O2 Delivery Device Oxygen Flow Rate L Sodium (140-148) mmol/L Potassium (3.6-5.2) mmol/L Chloride (100-108) mmol/L Carbon Dioxide (21-32) mmol/L Anion Gap (5.0-14.0) mmol/L BUN (7-18) mg/dL Creatinine (0.8-1.3) mg/dL Est Cr Clr Drug Dosing mL/min Estimated GFR (MDRD) (>60) Glucose (74-106) mg/dL POC Glucose (74-106) mg/dL Lactic Acid 0.9 (0.4-2.0) mmol/L Calcium (8.5-10.1) mg/dL Ferritin 84 (8-388) ng/ml Total Bilirubin (0.2-1.0) mg/dL Direct Bilirubin (0.0-0.2) mg/dL Indirect Bilirubin AST (15-37) U/L ALT (12-78) U/L Alkaline Phosphatase (46-116) U/L Lactate Dehydrogenase (85-227) U/L C-Reactive Protein 3.05 H (0.0-0.3) mg/dL Total Protein (6.4-8.2) g/dL Albumin (3.4-5.0) g/dL Globulin (2.3-3.5) g/dL Albumin/Globulin Ratio (1.2-2.2) Influenza Type A RNA (NEGATIVE) RSV RNA (INAAT) (NEGATIVE) Influenza Type B RNA (NEGATIVE) SARS-CoV-2 RNA ([facility]ASIA) (NEGATIVE) 02/27/21 02/27/21 02/27/21 Range/Units 01:36 01:36 01:36 WBC (4.5-11.0) K/uL RBC (4.30-5.90) M/uL Hgb (12.0-15.0) g/dL Hct (40.0-54.0) % MCV (80-98) fL MCH (27-31) pg MCHC (32-36) % Plt Count (150-400) K/uL Neut % (Auto) (36-66) % Lymph % (Auto) (24-44) % [place] % (Auto) (2-6) % Eos % (Auto) (2-4) % Baso % (Auto) (0-1) % APTT 29.8 (21.4-31.8) sec D-Dimer, Quantitative 1097.59 H (0.0-500.0) ng/mL Puncture Site ABG pH (7.350-7.450) ABG pCO2 (35.0-42.0) mmHg ABG pO2 (75.0-100.0) mmHg ABG HCO3 (22.0-26.0) mmol/L ABG Total CO2 (23.0-27.0) mmol/L ABG O2 Saturation (95.0-98.0) % ABG O2 Content (15.0-23.0) %vol ABG Base Excess mm/L ABG Hemoglobin (13.5-18.0) g/dL ABG Oxyhemoglobin % ABG Carboxyhemoglobin (0.0-1.6) % ABG Methemoglobin % Aston Test O2 Delivery Device Oxygen Flow Rate L Sodium (140-148) mmol/L Potassium (3.6-5.2) mmol/L Chloride (100-108) mmol/L Carbon Dioxide (21-32) mmol/L Anion Gap (5.0-14.0) mmol/L BUN (7-18) mg/dL Creatinine (0.8-1.3) mg/dL Est Cr Clr Drug Dosing mL/min Estimated GFR (MDRD) (>60) Glucose (74-106) mg/dL POC Glucose (74-106) mg/dL Lactic Acid (0.4-2.0) mmol/L Calcium (8.5-10.1) mg/dL Ferritin (8-388) ng/ml Total Bilirubin (0.2-1.0) mg/dL Direct Bilirubin 0.10 (0.0-0.2) mg/dL Indirect Bilirubin AST (15-37) U/L ALT (12-78) U/L Alkaline Phosphatase (46-116) U/L Lactate Dehydrogenase 275 H (85-227) U/L C-Reactive Protein (0.0-0.3) mg/dL Total Protein (6.4-8.2) g/dL Albumin (3.4-5.0) g/dL Globulin (2.3-3.5) g/dL Albumin/Globulin Ratio (1.2-2.2) Influenza Type A RNA (NEGATIVE) RSV RNA (INAAT) (NEGATIVE) Influenza Type B RNA (NEGATIVE) SARS-CoV-2 RNA ([facility]ASIA) (NEGATIVE) 02/27/21 02/27/21 02/27/21 Range/Units 01:51 05:11 09:18 WBC (4.5-11.0) K/uL RBC (4.30-5.90) M/uL Hgb (12.0-15.0) g/dL Hct (40.0-54.0) % MCV (80-98) fL MCH (27-31) pg MCHC (32-36) % Plt Count (150-400) K/uL Neut % (Auto) (36-66) % Lymph % (Auto) (24-44) % [place] % (Auto) (2-6) % Eos % (Auto) (2-4) % Baso % (Auto) (0-1) % APTT (21.4-31.8) sec D-Dimer, Quantitative (0.0-500.0) ng/mL Puncture Site Lt radial ABG pH 7.448 (7.350-7.450) ABG pCO2 43.3 H (35.0-42.0) mmHg ABG pO2 53.9 L (75.0-100.0) mmHg ABG HCO3 29.5 H (22.0-26.0) mmol/L ABG Total CO2 26.0 (23.0-27.0) mmol/L ABG O2 Saturation 87.5 L (95.0-98.0) % ABG O2 Content 16.2 (15.0-23.0) %vol ABG Base Excess 5.3 mm/L ABG Hemoglobin 13.5 (13.5-18.0) g/dL ABG Oxyhemoglobin 85.7 % ABG Carboxyhemoglobin 1.3 (0.0-1.6) % ABG Methemoglobin 0.8 % Aston Test Pass O2 Delivery Device Nasal cannula Oxygen Flow Rate 2.0 L Sodium 136 L (140-148) mmol/L Potassium 4.3 (3.6-5.2) mmol/L Chloride 96 L (100-108) mmol/L Carbon Dioxide 33 H (21-32) mmol/L Anion Gap 11.3 (5.0-14.0) mmol/L BUN 18 (7-18) mg/dL Creatinine 1.1 (0.8-1.3) mg/dL Est Cr Clr Drug Dosing 73.48 mL/min Estimated GFR (MDRD) > 60 (>60) Glucose 156 H (74-106) mg/dL POC Glucose 142 H (74-106) mg/dL Lactic Acid (0.4-2.0) mmol/L Calcium 8.5 (8.5-10.1) mg/dL Ferritin (8-388) ng/ml Total Bilirubin 0.4 (0.2-1.0) mg/dL Direct Bilirubin 0.14 (0.0-0.2) mg/dL Indirect Bilirubin 0.26 AST 70 H (15-37) U/L ALT 52 (12-78) U/L Alkaline Phosphatase 47 (46-116) U/L Lactate Dehydrogenase (85-227) U/L C-Reactive Protein (0.0-0.3) mg/dL Total Protein 8.1 (6.4-8.2) g/dL Albumin 3.5 (3.4-5.0) g/dL Globulin 4.6 H (2.3-3.5) g/dL Albumin/Globulin Ratio 0.8 L (1.2-2.2) Influenza Type A RNA (NEGATIVE) RSV RNA (INAAT) (NEGATIVE) Influenza Type B RNA (NEGATIVE) SARS-CoV-2 RNA ([place]) (NEGATIVE) 02/27/21 Range/Units 12:21 WBC (4.5-11.0) K/uL RBC (4.30-5.90) M/uL Hgb (12.0-15.0) g/dL Hct (40.0-54.0) % MCV (80-98) fL MCH (27-31) pg MCHC (32-36) % Plt Count (150-400) K/uL Neut % (Auto) (36-66) % Lymph % (Auto) (24-44) % [place] % (Auto) (2-6) % Eos % (Auto) (2-4) % Baso % (Auto) (0-1) % APTT (21.4-31.8) sec D-Dimer, Quantitative (0.0-500.0) ng/mL Puncture Site ABG pH (7.350-7.450) ABG pCO2 (35.0-42.0) mmHg ABG pO2 (75.0-100.0) mmHg ABG HCO3 (22.0-26.0) mmol/L ABG Total CO2 (23.0-27.0) mmol/L ABG O2 Saturation (95.0-98.0) % ABG O2 Content (15.0-23.0) %vol ABG Base Excess mm/L ABG Hemoglobin (13.5-18.0) g/dL ABG Oxyhemoglobin % ABG Carboxyhemoglobin (0.0-1.6) % ABG Methemoglobin % Aston Test O2 Delivery Device Oxygen Flow Rate L Sodium (140-148) mmol/L Potassium (3.6-5.2) mmol/L Chloride (100-108) mmol/L Carbon Dioxide (21-32) mmol/L Anion Gap (5.0-14.0) mmol/L BUN (7-18) mg/dL Creatinine (0.8-1.3) mg/dL Est Cr Clr Drug Dosing mL/min Estimated GFR (MDRD) (>60) Glucose (74-106) mg/dL POC Glucose 212 H (74-106) mg/dL Lactic Acid (0.4-2.0) mmol/L Calcium (8.5-10.1) mg/dL Ferritin (8-388) ng/ml Total Bilirubin (0.2-1.0) mg/dL Direct Bilirubin (0.0-0.2) mg/dL Indirect Bilirubin AST (15-37) U/L ALT (12-78) U/L Alkaline Phosphatase (46-116) U/L Lactate Dehydrogenase (85-227) U/L C-Reactive Protein (0.0-0.3) mg/dL Total Protein (6.4-8.2) g/dL Albumin (3.4-5.0) g/dL Globulin (2.3-3.5) g/dL Albumin/Globulin Ratio (1.2-2.2) Influenza Type A RNA (NEGATIVE) RSV RNA (INAAT) (NEGATIVE) Influenza Type B RNA (NEGATIVE) SARS-CoV-2 RNA ([facility]IA) (NEGATIVE) Med Orders - Current: Current Medications Albuterol (Albuterol 8 Gm Inhaler) 0 gm INH Q2H PRN PRN Reason: Cough Albuterol/Ipratropium (Albuterol/Ipratropium 4 Gm Inhalation [place]) 0 gm INH Q4H PRN PRN Reason: Dyspnea Amitriptyline HCl (Amitriptyline 25 Mg Tab) 25 mg PO BEDTIME DAVIDE Benzonatate (Benzonatate 100 Mg Cap) 100 mg PO Q8H PRN PRN Reason: Cough Dexamethasone (Dexamethasone 4 Mg/Ml Sdv) 6 mg IVPUSH Q24H [facility] Stop: 03/07/21 18:01 Docusate Sodium (Docusate Sodium 100 Mg Cap) 100 mg PO BID PRN PRN Reason: Constipation Enoxaparin Sodium (Enoxaparin 40 Mg/0.4 Ml Syringe) 40 mg SUBCUT BEDTIME DAVIDE Furosemide (Furosemide 20 Mg Tab) 20 mg PO BIDDIURETIC [facility] Last Admin: 02/27/21 09:25 Dose: 20 mg Documented by: Guaifenesin (Guaifenesin 100 Mg/5 Ml Soln Ml (118 Ml Bottle)) 100 mg PO Q4H PRN PRN Reason: Cough Hydrochlorothiazide (Hydrochlorothiazide 25 Mg Tab) 25 mg PO BID [facility] Last Admin: 02/27/21 09:41 Dose: 25 mg Documented by: Remdesivir 100 mg/ Sodium (Chloride) 100 mls @ 100 mls/hr IV Q24H [facility] Stop: 03/02/21 23:59 Ibuprofen (Ibuprofen 800 Mg Tab) 800 mg PO Q8H PRN PRN Reason: Fever Last Admin: 02/27/21 02:17 Dose: 800 mg Documented by: Insulin Human Lispro (Insulin Lispro 100 Unit/Ml 3 Ml Kwikpen) 0 unit SUBCUT QIDACANDBED [facility]; Protocol Last Admin: 02/27/21 12:29 Dose: 2 units Documented by: Lorazepam (Lorazepam 2 Mg/Ml Sdv) 1 mg IV Q6H PRN PRN Reason: Anxiety Losartan Potassium (Losartan 50 Mg Tab) 150 mg PO DAILY [facility] Last Admin: 02/27/21 09:40 Dose: 150 mg Documented by: Metolazone (Metolazone 2.5 Mg Tab) 5 mg PO DAILY [facility] Last Admin: 02/27/21 09:42 Dose: 5 mg Documented by: Metoprolol Tartrate (Metoprolol Tartrate 50 Mg Tab) 50 mg PO BID [facility] Last Admin: 02/27/21 09:41 Dose: 50 mg Documented by: Morphine Sulfate (Morphine 2 Mg/Ml Syringe) 2 mg IVPUSH Q2H PRN PRN Reason: Pain (severe 7-10) Ondansetron HCl (Ondansetron 4 Mg Tab.Dis) 4 mg PO Q6H PRN PRN Reason: Nausea able to take PO Oxycodone HCl (Oxycodone 5 Mg Tab) 5 mg PO Q4H PRN PRN Reason: Pain (moderate 4-6) Pantoprazole Sodium (Pantoprazole 40 Mg Vial) 40 mg IVPUSH DAILY@0730 [facility] Last Admin: 02/27/21 09:00 Dose: 40 mg Documented by: Discontinued Medications Albuterol (Albuterol 8 Gm Inhaler) 0 gm INH ONETIME ONE Stop: 02/26/21 23:52 Last Admin: 02/26/21 23:59 Dose: 2 puff Documented by: Albuterol/Ipratropium (Albuterol/Ipratropium 3.0-0.5 Mg/3 Ml Neb Soln) 3 ml NEB ONETIME ONE Stop: 02/26/21 23:16 Last Admin: 02/27/21 01:29 Dose: Not Given Documented by: Amitriptyline HCl (Amitriptyline 25 Mg Tab) 25 - 50 mg PO BEDTIME [facility] Benzonatate (Benzonatate 100 Mg Cap) 200 mg PO Q8H PRN PRN Reason: Cough Dexamethasone (Dexamethasone 4 Mg/Ml Sdv) 6 mg IVPUSH DAILY [facility] Stop: 03/07/21 09:01 Last Admin: 02/27/21 02:13 Dose: 6 mg Documented by: Enoxaparin Sodium (Enoxaparin 40 Mg/0.4 Ml Syringe) 40 mg SUBCUT DAILY [facility] Last Admin: 02/27/21 02:14 Dose: 40 mg Documented by: Remdesivir 200 mg/ Sodium (Chloride) 250 mls @ 250 mls/hr IV ONETIME ONE Stop: 02/27/21 02:31 Last Admin: 02/27/21 02:17 Dose: 250 mls/hr Documented by: - Exam Quality Assessment: Supplemental Oxygen, DVT Prophylaxis General: Alert, Oriented, Cooperative, Moderate Distress Lungs: Decreased Breath Sounds, Crackles. No: Rales, Rhonchi, Wheezing Cardiovascular: Regular Rate, Regular Rhythm, No Murmurs GI/Abdominal Exam: Soft, Non-Tender, No Organomegaly, No Distention Extremities: Non-Tender, No Pedal Edema - Patient Data Lab Results Last 24 hrs: Laboratory Results - last 24 hr 02/26/21 02/26/21 02/26/21 Range/Units 23:04 23:18 23:18 WBC 5.4 (4.5-11.0) K/uL RBC 5.32 (4.30-5.90) M/uL Hgb 13.5 D (12.0-15.0) g/dL Hct 42.9 (40.0-54.0) % MCV 81 (80-98) fL MCH 25 L (27-31) pg MCHC 32 (32-36) % Plt Count 175 (150-400) K/uL Neut % (Auto) 71.0 H (36-66) % Lymph % (Auto) 14.6 L (24-44) % [place] % (Auto) 14.2 H (2-6) % Eos % (Auto) 0.0 L (2-4) % Baso % (Auto) 0.2 (0-1) % APTT (21.4-31.8) sec D-Dimer, Quantitative (0.0-500.0) ng/mL Puncture Site ABG pH (7.350-7.450) ABG pCO2 (35.0-42.0) mmHg ABG pO2 (75.0-100.0) mmHg ABG HCO3 (22.0-26.0) mmol/L ABG Total CO2 (23.0-27.0) mmol/L ABG O2 Saturation (95.0-98.0) % ABG O2 Content (15.0-23.0) %vol ABG Base Excess mm/L ABG Hemoglobin (13.5-18.0) g/dL ABG Oxyhemoglobin % ABG Carboxyhemoglobin (0.0-1.6) % ABG Methemoglobin % Aston Test O2 Delivery Device Oxygen Flow Rate L Sodium 133 L (140-148) mmol/L Potassium 4.1 (3.6-5.2) mmol/L Chloride 97 L (100-108) mmol/L Carbon Dioxide 30 (21-32) mmol/L Anion Gap 10.1 (5.0-14.0) mmol/L BUN 19 H (7-18) mg/dL Creatinine 1.0 (0.8-1.3) mg/dL Est Cr Clr Drug Dosing 80.83 mL/min Estimated GFR (MDRD) > 60 (>60) Glucose 131 H (74-106) mg/dL POC Glucose (74-106) mg/dL Lactic Acid (0.4-2.0) mmol/L Calcium 8.0 L (8.5-10.1) mg/dL Ferritin (8-388) ng/ml Total Bilirubin 0.4 (0.2-1.0) mg/dL Direct Bilirubin (0.0-0.2) mg/dL Indirect Bilirubin AST 60 H D (15-37) U/L ALT 45 (12-78) U/L Alkaline Phosphatase 45 L (46-116) U/L Lactate Dehydrogenase (85-227) U/L C-Reactive Protein (0.0-0.3) mg/dL Total Protein 7.0 (6.4-8.2) g/dL Albumin 3.1 L (3.4-5.0) g/dL Globulin 3.9 H (2.3-3.5) g/dL Albumin/Globulin Ratio 0.8 L (1.2-2.2) Influenza Type A RNA Negative (NEGATIVE) RSV RNA (INAAT) Negative (NEGATIVE) Influenza Type B RNA Negative (NEGATIVE) SARS-CoV-2 RNA ([facility]ASIA) Positive H (NEGATIVE) 02/26/21 02/26/21 02/27/21 Range/Units 23:18 23:18 01:36 WBC (4.5-11.0) K/uL RBC (4.30-5.90) M/uL Hgb (12.0-15.0) g/dL Hct (40.0-54.0) % MCV (80-98) fL MCH (27-31) pg MCHC (32-36) % Plt Count (150-400) K/uL Neut % (Auto) (36-66) % Lymph % (Auto) (24-44) % [place] % (Auto) (2-6) % Eos % (Auto) (2-4) % Baso % (Auto) (0-1) % APTT (21.4-31.8) sec D-Dimer, Quantitative (0.0-500.0) ng/mL Puncture Site ABG pH (7.350-7.450) ABG pCO2 (35.0-42.0) mmHg ABG pO2 (75.0-100.0) mmHg ABG HCO3 (22.0-26.0) mmol/L ABG Total CO2 (23.0-27.0) mmol/L ABG O2 Saturation (95.0-98.0) % ABG O2 Content (15.0-23.0) %vol ABG Base Excess mm/L ABG Hemoglobin (13.5-18.0) g/dL ABG Oxyhemoglobin % ABG Carboxyhemoglobin (0.0-1.6) % ABG Methemoglobin % Aston Test O2 Delivery Device Oxygen Flow Rate L Sodium (140-148) mmol/L Potassium (3.6-5.2) mmol/L Chloride (100-108) mmol/L Carbon Dioxide (21-32) mmol/L Anion Gap (5.0-14.0) mmol/L BUN (7-18) mg/dL Creatinine (0.8-1.3) mg/dL Est Cr Clr Drug Dosing mL/min Estimated GFR (MDRD) (>60) Glucose (74-106) mg/dL POC Glucose (74-106) mg/dL Lactic Acid 0.9 (0.4-2.0) mmol/L Calcium (8.5-10.1) mg/dL Ferritin 84 (8-388) ng/ml Total Bilirubin (0.2-1.0) mg/dL Direct Bilirubin (0.0-0.2) mg/dL Indirect Bilirubin AST (15-37) U/L ALT (12-78) U/L Alkaline Phosphatase (46-116) U/L Lactate Dehydrogenase (85-227) U/L C-Reactive Protein 3.05 H (0.0-0.3) mg/dL Total Protein (6.4-8.2) g/dL Albumin (3.4-5.0) g/dL Globulin (2.3-3.5) g/dL Albumin/Globulin Ratio (1.2-2.2) Influenza Type A RNA (NEGATIVE) RSV RNA (INAAT) (NEGATIVE) Influenza Type B RNA (NEGATIVE) SARS-CoV-2 RNA ([facility]) (NEGATIVE) 02/27/21 02/27/21 02/27/21 Range/Units 01:36 01:36 01:36 WBC (4.5-11.0) K/uL RBC (4.30-5.90) M/uL Hgb (12.0-15.0) g/dL Hct (40.0-54.0) % MCV (80-98) fL MCH (27-31) pg MCHC (32-36) % Plt Count (150-400) K/uL Neut % (Auto) (36-66) % Lymph % (Auto) (24-44) % [place] % (Auto) (2-6) % Eos % (Auto) (2-4) % Baso % (Auto) (0-1) % APTT 29.8 (21.4-31.8) sec D-Dimer, Quantitative 1097.59 H (0.0-500.0) ng/mL Puncture Site ABG pH (7.350-7.450) ABG pCO2 (35.0-42.0) mmHg ABG pO2 (75.0-100.0) mmHg ABG HCO3 (22.0-26.0) mmol/L ABG Total CO2 (23.0-27.0) mmol/L ABG O2 Saturation (95.0-98.0) % ABG O2 Content (15.0-23.0) %vol ABG Base Excess mm/L ABG Hemoglobin (13.5-18.0) g/dL ABG Oxyhemoglobin % ABG Carboxyhemoglobin (0.0-1.6) % ABG Methemoglobin % Aston Test O2 Delivery Device Oxygen Flow Rate L Sodium (140-148) mmol/L Potassium (3.6-5.2) mmol/L Chloride (100-108) mmol/L Carbon Dioxide (21-32) mmol/L Anion Gap (5.0-14.0) mmol/L BUN (7-18) mg/dL Creatinine (0.8-1.3) mg/dL Est Cr Clr Drug Dosing mL/min Estimated GFR (MDRD) (>60) Glucose (74-106) mg/dL POC Glucose (74-106) mg/dL Lactic Acid (0.4-2.0) mmol/L Calcium (8.5-10.1) mg/dL Ferritin (8-388) ng/ml Total Bilirubin (0.2-1.0) mg/dL Direct Bilirubin 0.10 (0.0-0.2) mg/dL Indirect Bilirubin AST (15-37) U/L ALT (12-78) U/L Alkaline Phosphatase (46-116) U/L Lactate Dehydrogenase 275 H (85-227) U/L C-Reactive Protein (0.0-0.3) mg/dL Total Protein (6.4-8.2) g/dL Albumin (3.4-5.0) g/dL Globulin (2.3-3.5) g/dL Albumin/Globulin Ratio (1.2-2.2) Influenza Type A RNA (NEGATIVE) RSV RNA (INAAT) (NEGATIVE) Influenza Type B RNA (NEGATIVE) SARS-CoV-2 RNA ([facility]) (NEGATIVE) 02/27/21 02/27/21 02/27/21 Range/Units 01:51 05:11 09:18 WBC (4.5-11.0) K/uL RBC (4.30-5.90) M/uL Hgb (12.0-15.0) g/dL Hct (40.0-54.0) % MCV (80-98) fL MCH (27-31) pg MCHC (32-36) % Plt Count (150-400) K/uL Neut % (Auto) (36-66) % Lymph % (Auto) (24-44) % [place] % (Auto) (2-6) % Eos % (Auto) (2-4) % Baso % (Auto) (0-1) % APTT (21.4-31.8) sec D-Dimer, Quantitative (0.0-500.0) ng/mL Puncture Site Lt radial ABG pH 7.448 (7.350-7.450) ABG pCO2 43.3 H (35.0-42.0) mmHg ABG pO2 53.9 L (75.0-100.0) mmHg ABG HCO3 29.5 H (22.0-26.0) mmol/L ABG Total CO2 26.0 (23.0-27.0) mmol/L ABG O2 Saturation 87.5 L (95.0-98.0) % ABG O2 Content 16.2 (15.0-23.0) %vol ABG Base Excess 5.3 mm/L ABG Hemoglobin 13.5 (13.5-18.0) g/dL ABG Oxyhemoglobin 85.7 % ABG Carboxyhemoglobin 1.3 (0.0-1.6) % ABG Methemoglobin 0.8 % Aston Test Pass O2 Delivery Device Nasal cannula Oxygen Flow Rate 2.0 L Sodium 136 L (140-148) mmol/L Potassium 4.3 (3.6-5.2) mmol/L Chloride 96 L (100-108) mmol/L Carbon Dioxide 33 H (21-32) mmol/L Anion Gap 11.3 (5.0-14.0) mmol/L BUN 18 (7-18) mg/dL Creatinine 1.1 (0.8-1.3) mg/dL Est Cr Clr Drug Dosing 73.48 mL/min Estimated GFR (MDRD) > 60 (>60) Glucose 156 H (74-106) mg/dL POC Glucose 142 H (74-106) mg/dL Lactic Acid (0.4-2.0) mmol/L Calcium 8.5 (8.5-10.1) mg/dL Ferritin (8-388) ng/ml Total Bilirubin 0.4 (0.2-1.0) mg/dL Direct Bilirubin 0.14 (0.0-0.2) mg/dL Indirect Bilirubin 0.26 AST 70 H (15-37) U/L ALT 52 (12-78) U/L Alkaline Phosphatase 47 (46-116) U/L Lactate Dehydrogenase (85-227) U/L C-Reactive Protein (0.0-0.3) mg/dL Total Protein 8.1 (6.4-8.2) g/dL Albumin 3.5 (3.4-5.0) g/dL Globulin 4.6 H (2.3-3.5) g/dL Albumin/Globulin Ratio 0.8 L (1.2-2.2) Influenza Type A RNA (NEGATIVE) RSV RNA (INAAT) (NEGATIVE) Influenza Type B RNA (NEGATIVE) SARS-CoV-2 RNA ([facility]) (NEGATIVE) 02/27/21 Range/Units 12:21 WBC (4.5-11.0) K/uL RBC (4.30-5.90) M/uL Hgb (12.0-15.0) g/dL Hct (40.0-54.0) % MCV (80-98) fL MCH (27-31) pg MCHC (32-36) % Plt Count (150-400) K/uL Neut % (Auto) (36-66) % Lymph % (Auto) (24-44) % [place] % (Auto) (2-6) % Eos % (Auto) (2-4) % Baso % (Auto) (0-1) % APTT (21.4-31.8) sec D-Dimer, Quantitative (0.0-500.0) ng/mL Puncture Site ABG pH (7.350-7.450) ABG pCO2 (35.0-42.0) mmHg ABG pO2 (75.0-100.0) mmHg ABG HCO3 (22.0-26.0) mmol/L ABG Total CO2 (23.0-27.0) mmol/L ABG O2 Saturation (95.0-98.0) % ABG O2 Content (15.0-23.0) %vol ABG Base Excess mm/L ABG Hemoglobin (13.5-18.0) g/dL ABG Oxyhemoglobin % ABG Carboxyhemoglobin (0.0-1.6) % ABG Methemoglobin % Aston Test O2 Delivery Device Oxygen Flow Rate L Sodium (140-148) mmol/L Potassium (3.6-5.2) mmol/L Chloride (100-108) mmol/L Carbon Dioxide (21-32) mmol/L Anion Gap (5.0-14.0) mmol/L BUN (7-18) mg/dL Creatinine (0.8-1.3) mg/dL Est Cr Clr Drug Dosing mL/min Estimated GFR (MDRD) (>60) Glucose (74-106) mg/dL POC Glucose 212 H (74-106) mg/dL Lactic Acid (0.4-2.0) mmol/L Calcium (8.5-10.1) mg/dL Ferritin (8-388) ng/ml Total Bilirubin (0.2-1.0) mg/dL Direct Bilirubin (0.0-0.2) mg/dL Indirect Bilirubin AST (15-37) U/L ALT (12-78) U/L Alkaline Phosphatase (46-116) U/L Lactate Dehydrogenase (85-227) U/L C-Reactive Protein (0.0-0.3) mg/dL Total Protein (6.4-8.2) g/dL Albumin (3.4-5.0) g/dL Globulin (2.3-3.5) g/dL Albumin/Globulin Ratio (1.2-2.2) Influenza Type A RNA (NEGATIVE) RSV RNA (INAAT) (NEGATIVE) Influenza Type B RNA (NEGATIVE) SARS-CoV-2 RNA ([facility]) (NEGATIVE) Result Diagrams: 02/26/21 23:18 02/27/21 05:11 Sepsis Event Note - Evaluation Sepsis Screening Result: No Definite Risk - Focused Exam Vital Signs: Vital Signs Temp Temp Pulse Pulse Resp BP BP 02/27/21 12:24 96.6 F L 64 14 102/48 L 02/27/21 09:41 66 130/81 02/27/21 09:40 130/81 02/27/21 08:00 96.8 F L 68 18 130/81 02/27/21 07:54 02/27/21 03:17 97.1 F 02/27/21 03:00 99 26 H 117/72 02/27/21 02:37 02/27/21 02:17 101.8 F H 02/27/21 02:16 109 H 144/87 H 02/27/21 02:00 101.8 F H 100 24 H 144/87 H Pulse Ox 02/27/21 12:24 89 L 02/27/21 09:41 02/27/21 09:40 02/27/21 08:00 92 L 02/27/21 07:54 92 L 02/27/21 03:17 02/27/21 03:00 89 L 02/27/21 02:37 91 L 02/27/21 02:17 02/27/21 02:16 02/27/21 02:00 92 L - Problem List Review Problem List Initiated/Reviewed/Updated: Yes - My Orders Last 24 Hours: My Active Orders 02/28/21 05:00 CBC WITH AUTO DIFF [HEME] Timed COMPREHENSIVE METABOLIC PN,CMP [CHEM] Timed 02/28/21 05:11 CRP [C-REACTIVE PROTEIN] [CHEM] AM D Dimer [D-DIMER QUANTITATIVE] [COAG] AM - Plan Plan:: ASSESSMENT AND PLAN COVID-19 pneumonia-complicated by hypoxia.weakness, nausea and vomiting. He has remained stable since admission, continues to require 2 L of supplemental oxygen per minute via nasal cannula. -Covid precautions and isolation -Prone ventilation as possible -Dexamethasone 6 mg po daily, today is day 2 -Lovenox 40 mg subcut. Every 24 hours -Albuterol inhaler 2 puffs every 4 hours as needed for shortness of breath -Atrovent inhaler 1 puff 4 times a day -IV Remdesivir 200mg x1, then IV Remdesivir 100 mg daily x 4 days, today is day 2 of 5 -oxygen therapy to keep oxygen saturation >90% -Repeat labs including CBC, BMP, CRP and D-dimer in the morning Congestive Heart Failure -I&O -Metolazone 5 mg daily -Lasix 20 mg po bid -valsartan 320 mg daily Diabetes type 2 diet controlled -POC blood glucose testing before meals -low dose Sliding scale insulin Hypertension-blood pressure control acceptable- hold blood pressure medication for blood pressure systolic less than 110 -continue HCTZ 25 mg tablet daily -Metoprolol 50 mg po po bid -monitor blood pressure every shift. Maintenance issues - - DVT prophylaxis - Lovenox 40 mg every 24 hours - GI prophylaxis -PPI - Nutrition - Consistent carb diet - Pérez catheter -not indicated at this time CODE STATUS - FULL Admission justification -this patient will be admitted for inpatient services and is medically appropriate meeting medical necessity for inpatient admission as outlined in my documentation. I reasonably expect the patient will require inpatient services that span a period time over 2 midnights. I reasonably expect this patient to be discharged or transferred within 96 hours [facility]. Disposition -home with family Primary care physician - Dr. Darius Montemayor, . Hospital - Dr. Mis M.D.
[2021-02-27] MEDS: Dexamethasone 4 MG/ML SDV IVPUSH SCH (17:06)
[2021-02-27] MEDS: Enoxaparin 40 MG/0.4 ML Syringe SUBCUT SCH (20:34)
[2021-02-27] MEDS: Amitriptyline 25 MG Tab PO SCH (20:36)
[2021-02-27] MEDS ORDERED: Amitriptyline 25 MG Tab PO SCH (21:00)
[2021-02-27] MEDS: REMDESIVIR 100 MG in Sodium Chloride 0.9% 100 ML IV SCH (23:32)
[2021-02-28] MEDS: Pantoprazole 40 MG Vial IVPUSH SCH (08:20)
[2021-02-28] MEDS: Insulin Lispro 100 Unit/ML 3 ML KwikPen SUBCUT SCH ×4 (08:29→21:41)
[2021-02-28] MEDS: Metolazone 2.5 MG Tab PO SCH (08:32)
[2021-02-28] MEDS: Furosemide 20 MG Tab PO SCH ×2 (08:33→13:59)
[2021-02-28] MEDS: Metoprolol Tartrate 50 MG Tab PO SCH ×2 (08:33→22:55)
[2021-02-28] MEDS: Hydrochlorothiazide 25 MG Tab PO SCH ×2 (08:33→21:44)
[2021-02-28] MEDS: Losartan 50 MG Tab PO SCH (08:34)
--- NOTE | 2021-02-28 16:14 | PCM.PN ---
- General Info Date of Service: 02/28/21 Subjective Update: Mr. Villa has remained stable since yesterday. No significant change in his respiratory status, continues to require 2 to 3 L of oxygen per minute via nasal cannula. He reports modest improvement in his strength, appetite remains good. - Review of Systems General: Reports: Weakness, Fatigue. Denies: Fever, Chills Pulmonary: Reports: Shortness of Breath, Cough, Wheezing. Denies: Pleuritic Chest Pain, Sputum, Hemoptysis Cardiovascular: Reports: Dyspnea on Exertion. Denies: Chest Pain, Palpitations, Orthopnea, PND, Edema, Lightheadedness Gastrointestinal: Reports: No Symptoms Genitourinary: Reports: No Symptoms - Patient Data Vitals - Most Recent: Last Vital Signs Temp 97.3 F 02/28/21 14:57 Pulse 75 02/28/21 14:57 Resp 18 02/28/21 14:57 BP 120/71 02/28/21 14:57 Pulse Ox 91 L 02/28/21 14:57 Weight - Most Recent: 286 lb I&O - Last 24 Hours: Intake & Output 02/28/21 02/28/21 02/28/21 06:59 14:59 22:59 Intake Total 1140 Balance 1140 Lab Results Last 24 Hours: Laboratory Results - last 24 hr 02/27/21 02/27/21 02/28/21 Range/Units 16:26 20:40 01:00 WBC (4.5-11.0) K/uL RBC (4.30-5.90) M/uL Hgb (12.0-15.0) g/dL Hct (40.0-54.0) % MCV (80-98) fL MCH (27-31) pg MCHC (32-36) % Plt Count (150-400) K/uL Neut % (Auto) (36-66) % Lymph % (Auto) (24-44) % Pitt % (Auto) (2-6) % Eos % (Auto) (2-4) % Baso % (Auto) (0-1) % D-Dimer, Quantitative (0.0-500.0) ng/mL Sodium (140-148) mmol/L Potassium (3.6-5.2) mmol/L Chloride (100-108) mmol/L Carbon Dioxide (21-32) mmol/L Anion Gap (5.0-14.0) mmol/L BUN (7-18) mg/dL Creatinine (0.8-1.3) mg/dL Est Cr Clr Drug Dosing mL/min Estimated GFR (MDRD) (>60) Glucose (74-106) mg/dL POC Glucose 131 H 162 H (74-106) mg/dL Calcium (8.5-10.1) mg/dL Total Bilirubin 0.3 (0.2-1.0) mg/dL Direct Bilirubin 0.10 (0.0-0.2) mg/dL Indirect Bilirubin 0.20 AST 58 H (15-37) U/L ALT 46 (12-78) U/L Alkaline Phosphatase 49 (46-116) U/L C-Reactive Protein (0.0-0.3) mg/dL Total Protein 7.4 (6.4-8.2) g/dL Albumin 3.0 L (3.4-5.0) g/dL Globulin 4.4 H (2.3-3.5) g/dL Albumin/Globulin Ratio 0.7 L (1.2-2.2) 02/28/21 02/28/21 02/28/21 Range/Units 05:30 05:30 05:30 WBC 6.7 (4.5-11.0) K/uL RBC 5.89 (4.30-5.90) M/uL Hgb 15.0 (12.0-15.0) g/dL Hct 47.6 (40.0-54.0) % MCV 81 (80-98) fL MCH 26 L (27-31) pg MCHC 32 (32-36) % Plt Count 201 (150-400) K/uL Neut % (Auto) 77.2 H (36-66) % Lymph % (Auto) 12.6 L (24-44) % Pitt % (Auto) 9.9 H (2-6) % Eos % (Auto) 0.0 L (2-4) % Baso % (Auto) 0.3 (0-1) % D-Dimer, Quantitative 942.56 H (0.0-500.0) ng/mL Sodium 137 L (140-148) mmol/L Potassium 3.9 (3.6-5.2) mmol/L Chloride 96 L (100-108) mmol/L Carbon Dioxide 33 H (21-32) mmol/L Anion Gap 11.9 (5.0-14.0) mmol/L BUN 30 H D (7-18) mg/dL Creatinine 1.2 (0.8-1.3) mg/dL Est Cr Clr Drug Dosing 71.35 mL/min Estimated GFR (MDRD) > 60 (>60) Glucose 136 H (74-106) mg/dL POC Glucose (74-106) mg/dL Calcium 8.0 L (8.5-10.1) mg/dL Total Bilirubin 0.4 (0.2-1.0) mg/dL Direct Bilirubin (0.0-0.2) mg/dL Indirect Bilirubin AST 51 H (15-37) U/L ALT 44 (12-78) U/L Alkaline Phosphatase 50 (46-116) U/L C-Reactive Protein (0.0-0.3) mg/dL Total Protein 7.5 (6.4-8.2) g/dL Albumin 3.1 L (3.4-5.0) g/dL Globulin 4.4 H (2.3-3.5) g/dL Albumin/Globulin Ratio 0.7 L (1.2-2.2) 02/28/21 02/28/21 02/28/21 Range/Units 05:30 08:23 11:56 WBC (4.5-11.0) K/uL RBC (4.30-5.90) M/uL Hgb (12.0-15.0) g/dL Hct (40.0-54.0) % MCV (80-98) fL MCH (27-31) pg MCHC (32-36) % Plt Count (150-400) K/uL Neut % (Auto) (36-66) % Lymph % (Auto) (24-44) % Pitt % (Auto) (2-6) % Eos % (Auto) (2-4) % Baso % (Auto) (0-1) % D-Dimer, Quantitative (0.0-500.0) ng/mL Sodium (140-148) mmol/L Potassium (3.6-5.2) mmol/L Chloride (100-108) mmol/L Carbon Dioxide (21-32) mmol/L Anion Gap (5.0-14.0) mmol/L BUN (7-18) mg/dL Creatinine (0.8-1.3) mg/dL Est Cr Clr Drug Dosing mL/min Estimated GFR (MDRD) (>60) Glucose (74-106) mg/dL POC Glucose 127 H 156 H (74-106) mg/dL Calcium (8.5-10.1) mg/dL Total Bilirubin (0.2-1.0) mg/dL Direct Bilirubin (0.0-0.2) mg/dL Indirect Bilirubin AST (15-37) U/L ALT (12-78) U/L Alkaline Phosphatase (46-116) U/L C-Reactive Protein 2.89 H (0.0-0.3) mg/dL Total Protein (6.4-8.2) g/dL Albumin (3.4-5.0) g/dL Globulin (2.3-3.5) g/dL Albumin/Globulin Ratio (1.2-2.2) Med Orders - Current: Current Medications Albuterol (Albuterol 8 Gm Inhaler) 0 gm INH Q2H PRN PRN Reason: Cough Last Admin: 02/28/21 08:37 Dose: 2 puff Documented by: Albuterol/Ipratropium (Albuterol/Ipratropium 4 Gm Inhalation [place]) 0 gm INH Q4H PRN PRN Reason: Dyspnea Last Admin: 02/28/21 12:02 Dose: 1 puff Documented by: Amitriptyline HCl (Amitriptyline 25 Mg Tab) 25 mg PO BEDTIME DAVIDE Last Admin: 02/27/21 20:36 Dose: 25 mg Documented by: Benzonatate (Benzonatate 100 Mg Cap) 100 mg PO Q8H PRN PRN Reason: Cough Dexamethasone (Dexamethasone 4 Mg/Ml Sdv) 6 mg IVPUSH Q24H [facility]IDE Stop: 03/07/21 18:01 Last Admin: 02/27/21 17:06 Dose: 6 mg Documented by: Docusate Sodium (Docusate Sodium 100 Mg Cap) 100 mg PO BID PRN PRN Reason: Constipation Enoxaparin Sodium (Enoxaparin 40 Mg/0.4 Ml Syringe) 40 mg SUBCUT BEDTIME DAVIDE Last Admin: 02/27/21 20:34 Dose: 40 mg Documented by: Furosemide (Furosemide 20 Mg Tab) 20 mg PO BIDDIURETIC [facility] Last Admin: 02/28/21 13:59 Dose: 20 mg Documented by: Guaifenesin (Guaifenesin 100 Mg/5 Ml Soln Ml (118 Ml Bottle)) 100 mg PO Q4H PRN PRN Reason: Cough Hydrochlorothiazide (Hydrochlorothiazide 25 Mg Tab) 25 mg PO BID [facility] Last Admin: 02/28/21 08:33 Dose: 25 mg Documented by: Remdesivir 100 mg/ Sodium (Chloride) 100 mls @ 100 mls/hr IV Q24H [facility] Stop: 03/02/21 23:59 Last Admin: 02/27/21 23:32 Dose: 100 mls/hr Documented by: Ibuprofen (Ibuprofen 800 Mg Tab) 800 mg PO Q8H PRN PRN Reason: Fever Last Admin: 02/27/21 02:17 Dose: 800 mg Documented by: Insulin Human Lispro (Insulin Lispro 100 Unit/Ml 3 Ml Kwikpen) 0 unit SUBCUT QIDACANDBED [facility]; Protocol Last Admin: 02/28/21 11:57 Dose: 1 units Documented by: Lorazepam (Lorazepam 2 Mg/Ml Sdv) 1 mg IV Q6H PRN PRN Reason: Anxiety Losartan Potassium (Losartan 50 Mg Tab) 150 mg PO DAILY [facility] Last Admin: 02/28/21 08:34 Dose: 150 mg Documented by: Metolazone (Metolazone 2.5 Mg Tab) 5 mg PO DAILY [facility] Last Admin: 02/28/21 08:32 Dose: 5 mg Documented by: Metoprolol Tartrate (Metoprolol Tartrate 50 Mg Tab) 50 mg PO BID [facility] Last Admin: 02/28/21 08:33 Dose: 50 mg Documented by: Morphine Sulfate (Morphine 2 Mg/Ml Syringe) 2 mg IVPUSH Q2H PRN PRN Reason: Pain (severe 7-10) Ondansetron HCl (Ondansetron 4 Mg Tab.Dis) 4 mg PO Q6H PRN PRN Reason: Nausea able to take PO Oxycodone HCl (Oxycodone 5 Mg Tab) 5 mg PO Q4H PRN PRN Reason: Pain (moderate 4-6) Pantoprazole Sodium (Pantoprazole 40 Mg Tab.Cr) 40 mg PO ACBREAKFAST [facility] Discontinued Medications Albuterol (Albuterol 8 Gm Inhaler) 0 gm INH ONETIME ONE Stop: 02/26/21 23:52 Last Admin: 02/26/21 23:59 Dose: 2 puff Documented by: Albuterol/Ipratropium (Albuterol/Ipratropium 3.0-0.5 Mg/3 Ml Neb Soln) 3 ml NEB ONETIME ONE Stop: 02/26/21 23:16 Last Admin: 02/27/21 01:29 Dose: Not Given Documented by: Amitriptyline HCl (Amitriptyline 25 Mg Tab) 25 - 50 mg PO BEDTIME [facility] Benzonatate (Benzonatate 100 Mg Cap) 200 mg PO Q8H PRN PRN Reason: Cough Dexamethasone (Dexamethasone 4 Mg/Ml Sdv) 6 mg IVPUSH DAILY [facility] Stop: 03/07/21 09:01 Last Admin: 02/27/21 02:13 Dose: 6 mg Documented by: Enoxaparin Sodium (Enoxaparin 40 Mg/0.4 Ml Syringe) 40 mg SUBCUT DAILY [facility] Last Admin: 02/27/21 02:14 Dose: 40 mg Documented by: Remdesivir 200 mg/ Sodium (Chloride) 250 mls @ 250 mls/hr IV ONETIME ONE Stop: 02/27/21 02:31 Last Admin: 02/27/21 02:17 Dose: 250 mls/hr Documented by: Pantoprazole Sodium (Pantoprazole 40 Mg Vial) 40 mg IVPUSH DAILY@0730 [facility] Last Admin: 02/28/21 08:20 Dose: 40 mg Documented by: - Exam Quality Assessment: Supplemental Oxygen, DVT Prophylaxis General: Alert, Oriented, Cooperative, Moderate Distress Lungs: Decreased Breath Sounds, Crackles, Wheezing. No: Rales, Rhonchi Cardiovascular: Regular Rate, Regular Rhythm, No Murmurs GI/Abdominal Exam: Soft, Non-Tender, No Organomegaly, No Distention Extremities: Non-Tender, No Pedal Edema - Patient Data Lab Results Last 24 hrs: Laboratory Results - last 24 hr 02/27/21 02/27/21 02/28/21 Range/Units 16:26 20:40 01:00 WBC (4.5-11.0) K/uL RBC (4.30-5.90) M/uL Hgb (12.0-15.0) g/dL Hct (40.0-54.0) % MCV (80-98) fL MCH (27-31) pg MCHC (32-36) % Plt Count (150-400) K/uL Neut % (Auto) (36-66) % Lymph % (Auto) (24-44) % Pitt % (Auto) (2-6) % Eos % (Auto) (2-4) % Baso % (Auto) (0-1) % D-Dimer, Quantitative (0.0-500.0) ng/mL Sodium (140-148) mmol/L Potassium (3.6-5.2) mmol/L Chloride (100-108) mmol/L Carbon Dioxide (21-32) mmol/L Anion Gap (5.0-14.0) mmol/L BUN (7-18) mg/dL Creatinine (0.8-1.3) mg/dL Est Cr Clr Drug Dosing mL/min Estimated GFR (MDRD) (>60) Glucose (74-106) mg/dL POC Glucose 131 H 162 H (74-106) mg/dL Calcium (8.5-10.1) mg/dL Total Bilirubin 0.3 (0.2-1.0) mg/dL Direct Bilirubin 0.10 (0.0-0.2) mg/dL Indirect Bilirubin 0.20 AST 58 H (15-37) U/L ALT 46 (12-78) U/L Alkaline Phosphatase 49 (46-116) U/L C-Reactive Protein (0.0-0.3) mg/dL Total Protein 7.4 (6.4-8.2) g/dL Albumin 3.0 L (3.4-5.0) g/dL Globulin 4.4 H (2.3-3.5) g/dL Albumin/Globulin Ratio 0.7 L (1.2-2.2) 02/28/21 02/28/21 02/28/21 Range/Units 05:30 05:30 05:30 WBC 6.7 (4.5-11.0) K/uL RBC 5.89 (4.30-5.90) M/uL Hgb 15.0 (12.0-15.0) g/dL Hct 47.6 (40.0-54.0) % MCV 81 (80-98) fL MCH 26 L (27-31) pg MCHC 32 (32-36) % Plt Count 201 (150-400) K/uL Neut % (Auto) 77.2 H (36-66) % Lymph % (Auto) 12.6 L (24-44) % Pitt % (Auto) 9.9 H (2-6) % Eos % (Auto) 0.0 L (2-4) % Baso % (Auto) 0.3 (0-1) % D-Dimer, Quantitative 942.56 H (0.0-500.0) ng/mL Sodium 137 L (140-148) mmol/L Potassium 3.9 (3.6-5.2) mmol/L Chloride 96 L (100-108) mmol/L Carbon Dioxide 33 H (21-32) mmol/L Anion Gap 11.9 (5.0-14.0) mmol/L BUN 30 H D (7-18) mg/dL Creatinine 1.2 (0.8-1.3) mg/dL Est Cr Clr Drug Dosing 71.35 mL/min Estimated GFR (MDRD) > 60 (>60) Glucose 136 H (74-106) mg/dL POC Glucose (74-106) mg/dL Calcium 8.0 L (8.5-10.1) mg/dL Total Bilirubin 0.4 (0.2-1.0) mg/dL Direct Bilirubin (0.0-0.2) mg/dL Indirect Bilirubin AST 51 H (15-37) U/L ALT 44 (12-78) U/L Alkaline Phosphatase 50 (46-116) U/L C-Reactive Protein (0.0-0.3) mg/dL Total Protein 7.5 (6.4-8.2) g/dL Albumin 3.1 L (3.4-5.0) g/dL Globulin 4.4 H (2.3-3.5) g/dL Albumin/Globulin Ratio 0.7 L (1.2-2.2) 02/28/21 02/28/21 02/28/21 Range/Units 05:30 08:23 11:56 WBC (4.5-11.0) K/uL RBC (4.30-5.90) M/uL Hgb (12.0-15.0) g/dL Hct (40.0-54.0) % MCV (80-98) fL MCH (27-31) pg MCHC (32-36) % Plt Count (150-400) K/uL Neut % (Auto) (36-66) % Lymph % (Auto) (24-44) % [place] % (Auto) (2-6) % Eos % (Auto) (2-4) % Baso % (Auto) (0-1) % D-Dimer, Quantitative (0.0-500.0) ng/mL Sodium (140-148) mmol/L Potassium (3.6-5.2) mmol/L Chloride (100-108) mmol/L Carbon Dioxide (21-32) mmol/L Anion Gap (5.0-14.0) mmol/L BUN (7-18) mg/dL Creatinine (0.8-1.3) mg/dL Est Cr Clr Drug Dosing mL/min Estimated GFR (MDRD) (>60) Glucose (74-106) mg/dL POC Glucose 127 H 156 H (74-106) mg/dL Calcium (8.5-10.1) mg/dL Total Bilirubin (0.2-1.0) mg/dL Direct Bilirubin (0.0-0.2) mg/dL Indirect Bilirubin AST (15-37) U/L ALT (12-78) U/L Alkaline Phosphatase (46-116) U/L C-Reactive Protein 2.89 H (0.0-0.3) mg/dL Total Protein (6.4-8.2) g/dL Albumin (3.4-5.0) g/dL Globulin (2.3-3.5) g/dL Albumin/Globulin Ratio (1.2-2.2) Result Diagrams: 02/28/21 05:30 02/28/21 05:30 Sepsis Event Note - Evaluation Sepsis Screening Result: No Definite Risk - Focused Exam Vital Signs: Vital Signs Temp Pulse Pulse Resp BP BP Pulse Ox 02/28/21 14:57 97.3 F 75 18 120/71 91 L 02/28/21 12:00 97.3 F 73 20 111/66 93 L 02/28/21 08:39 97.1 F 75 24 H 140/98 H 93 L 02/28/21 08:34 140/98 H 02/28/21 08:33 75 140/98 H 02/28/21 07:00 94 L - Problem List Review Problem List Initiated/Reviewed/Updated: Yes - My Orders Last 24 Hours: My Active Orders 02/28/21 15:38 POC Glucose [Blood Glucose Check, Bedside] [] QIDACANDBED - Plan Plan:: ASSESSMENT AND PLAN COVID-19 pneumonia-complicated by hypoxia.weakness, nausea and vomiting. He has remained stable since admission, continues to require 2-3 L of supplemental oxygen per minute via nasal cannula. Improvement in overall strength, appetite remains good -Covid precautions and isolation -Prone ventilation as possible -Dexamethasone 6 mg po daily, today is day 3 -Lovenox 40 mg subcut. Every 24 hours -Albuterol inhaler 2 puffs every 4 hours as needed for shortness of breath -Atrovent inhaler 1 puff 4 times a day -IV Remdesivir 200mg x1, then IV Remdesivir 100 mg daily x 4 days, today is day 3 of 5 -oxygen therapy to keep oxygen saturation >90% -Repeat labs including CBC, BMP, CRP and D-dimer in the morning Congestive Heart Failure -I&O -Metolazone 5 mg daily -Lasix 20 mg po bid -valsartan 320 mg daily Diabetes type 2 diet controlled -POC blood glucose testing before meals -low dose Sliding scale insulin Hypertension-blood pressure control acceptable- hold blood pressure medication for blood pressure systolic less than 110 -continue HCTZ 25 mg tablet daily -Metoprolol 50 mg po po bid -monitor blood pressure every shift. Maintenance issues - - DVT prophylaxis - Lovenox 40 mg every 24 hours - GI prophylaxis -PPI - Nutrition - Consistent carb diet - Pérez catheter -not indicated at this time CODE STATUS - FULL Admission justification -this patient will be admitted for inpatient services and is medically appropriate meeting medical necessity for inpatient admission as outlined in my documentation. I reasonably expect the patient will require inpatient services that span a period time over 2 midnights. I reasonably expect this patient to be discharged or transferred within 96 hours [facility]. Disposition -home with family Primary care physician - Dr. Darius Montemayor, . Hospital - Dr. Mis M.D.
[2021-02-28] MEDS: Dexamethasone 4 MG/ML SDV IVPUSH SCH (17:40)
[2021-02-28] MEDS ORDERED: REMDESIVIR 100 MG in Sodium Chloride 0.9% 100 ML IV SCH (21:00)
[2021-02-28] MEDS: Amitriptyline 25 MG Tab PO SCH (21:44)
[2021-02-28] MEDS: Enoxaparin 40 MG/0.4 ML Syringe SUBCUT SCH (21:44)
[2021-02-28] MEDS: REMDESIVIR 100 MG in Sodium Chloride 0.9% 100 ML IV SCH (22:56)
[2021-03-01] MEDS ORDERED: guaiFENesin/Dextromethorphan 100-10 MG/5 ML Soln 10 ML Cup PO PRN (04:51)
[2021-03-01] MEDS ORDERED: guaiFENesin/Dextromethorphan 100-10 MG/5 ML Soln 10 ML Cup ONE (04:52)
[2021-03-01] MEDS: Insulin Lispro 100 Unit/ML 3 ML KwikPen SUBCUT SCH ×4 (08:21→21:26)
[2021-03-01] MEDS: Pantoprazole 40 MG Tab.CR PO SCH (08:25)
[2021-03-01] MEDS ORDERED: Potassium Chloride 20 MEQ Tab.ER PO ONE (09:00)
[2021-03-01] MEDS: Furosemide 20 MG Tab PO SCH ×2 (09:25→15:25)
[2021-03-01] MEDS: Hydrochlorothiazide 25 MG Tab PO SCH (09:42)
[2021-03-01] MEDS: Metolazone 2.5 MG Tab PO SCH (09:52)
[2021-03-01] MEDS: Metoprolol Tartrate 50 MG Tab PO SCH (10:12)
[2021-03-01] MEDS: Losartan 50 MG Tab PO SCH (10:12)
--- NOTE | 2021-03-01 15:48 | PCM.PN ---
- General Info Date of Service: 03/01/21 Subjective Update: No acute events overnight. No significant shortness of breath. He does have an occasional nonproductive cough. No fevers. Slowly feeling better. Appetite sl owly improving but not back to baseline. Blood sugars are well controlled. No abdominal pain or nausea. CRP and D-dimer are improving. - Patient Data Vitals - Most Recent: Last Vital Signs Temp 36.2 C 03/01/21 14:57 Pulse 43 L 03/01/21 14:57 Resp 18 03/01/21 14:57 BP 106/45 L 03/01/21 14:57 Pulse Ox 92 L 03/01/21 14:57 Weight - Most Recent: 129.727 kg I&O - Last 24 Hours: Intake & Output 03/01/21 03/01/21 03/01/21 06:59 14:59 22:59 Intake Total 1000 1440 Balance 1000 1440 Lab Results Last 24 Hours: Laboratory Results - last 24 hr 02/28/21 02/28/21 03/01/21 Range/Units 17:37 21:12 04:17 WBC (4.5-11.0) K/uL RBC (4.30-5.90) M/uL Hgb (12.0-15.0) g/dL Hct (40.0-54.0) % MCV (80-98) fL MCH (27-31) pg MCHC (32-36) % Plt Count (150-400) K/uL Neut % (Auto) (36-66) % Lymph % (Auto) (24-44) % [place] % (Auto) (2-6) % Eos % (Auto) (2-4) % Baso % (Auto) (0-1) % D-Dimer, Quantitative (0.0-500.0) ng/mL Sodium 136 L (140-148) mmol/L Potassium 3.5 L (3.6-5.2) mmol/L Chloride 95 L (100-108) mmol/L Carbon Dioxide 30 (21-32) mmol/L Anion Gap 14.5 H (5.0-14.0) mmol/L BUN 43 H (7-18) mg/dL Creatinine 1.3 (0.8-1.3) mg/dL Est Cr Clr Drug Dosing 65.87 mL/min Estimated GFR (MDRD) 55 L (>60) Glucose 142 H (74-106) mg/dL POC Glucose 147 H 172 H (74-106) mg/dL Calcium 8.4 L (8.5-10.1) mg/dL Total Bilirubin 0.4 (0.2-1.0) mg/dL Direct Bilirubin 0.08 (0.0-0.2) mg/dL Indirect Bilirubin TNP AST 52 H (15-37) U/L ALT 39 (12-78) U/L Alkaline Phosphatase 48 (46-116) U/L C-Reactive Protein 1.60 H (0.0-0.3) mg/dL Total Protein 7.3 (6.4-8.2) g/dL Albumin 2.9 L (3.4-5.0) g/dL Globulin 4.4 H (2.3-3.5) g/dL Albumin/Globulin Ratio 0.7 L (1.2-2.2) 03/01/21 03/01/21 03/01/21 Range/Units 04:17 04:17 07:28 WBC 7.7 (4.5-11.0) K/uL RBC 5.85 (4.30-5.90) M/uL Hgb 15.2 H (12.0-15.0) g/dL Hct 47.3 (40.0-54.0) % MCV 81 (80-98) fL MCH 26 L (27-31) pg MCHC 32 (32-36) % Plt Count 211 (150-400) K/uL Neut % (Auto) 71.1 H (36-66) % Lymph % (Auto) 16.5 L (24-44) % [place] % (Auto) 11.8 H (2-6) % Eos % (Auto) 0.3 L (2-4) % Baso % (Auto) 0.3 (0-1) % D-Dimer, Quantitative 895.19 H (0.0-500.0) ng/mL Sodium (140-148) mmol/L Potassium (3.6-5.2) mmol/L Chloride (100-108) mmol/L Carbon Dioxide (21-32) mmol/L Anion Gap (5.0-14.0) mmol/L BUN (7-18) mg/dL Creatinine (0.8-1.3) mg/dL Est Cr Clr Drug Dosing mL/min Estimated GFR (MDRD) (>60) Glucose (74-106) mg/dL POC Glucose 102 (74-106) mg/dL Calcium (8.5-10.1) mg/dL Total Bilirubin (0.2-1.0) mg/dL Direct Bilirubin (0.0-0.2) mg/dL Indirect Bilirubin AST (15-37) U/L ALT (12-78) U/L Alkaline Phosphatase (46-116) U/L C-Reactive Protein (0.0-0.3) mg/dL Total Protein (6.4-8.2) g/dL Albumin (3.4-5.0) g/dL Globulin (2.3-3.5) g/dL Albumin/Globulin Ratio (1.2-2.2) 03/01/21 Range/Units 11:45 WBC (4.5-11.0) K/uL RBC (4.30-5.90) M/uL Hgb (12.0-15.0) g/dL Hct (40.0-54.0) % MCV (80-98) fL MCH (27-31) pg MCHC (32-36) % Plt Count (150-400) K/uL Neut % (Auto) (36-66) % Lymph % (Auto) (24-44) % [place] % (Auto) (2-6) % Eos % (Auto) (2-4) % Baso % (Auto) (0-1) % D-Dimer, Quantitative (0.0-500.0) ng/mL Sodium (140-148) mmol/L Potassium (3.6-5.2) mmol/L Chloride (100-108) mmol/L Carbon Dioxide (21-32) mmol/L Anion Gap (5.0-14.0) mmol/L BUN (7-18) mg/dL Creatinine (0.8-1.3) mg/dL Est Cr Clr Drug Dosing mL/min Estimated GFR (MDRD) (>60) Glucose (74-106) mg/dL POC Glucose 167 H (74-106) mg/dL Calcium (8.5-10.1) mg/dL Total Bilirubin (0.2-1.0) mg/dL Direct Bilirubin (0.0-0.2) mg/dL Indirect Bilirubin AST (15-37) U/L ALT (12-78) U/L Alkaline Phosphatase (46-116) U/L C-Reactive Protein (0.0-0.3) mg/dL Total Protein (6.4-8.2) g/dL Albumin (3.4-5.0) g/dL Globulin (2.3-3.5) g/dL Albumin/Globulin Ratio (1.2-2.2) Med Orders - Current: Current Medications Albuterol (Albuterol 8 Gm Inhaler) 0 gm INH Q2H PRN PRN Reason: Cough Last Admin: 02/28/21 08:37 Dose: 2 puff Documented by: Albuterol/Ipratropium (Albuterol/Ipratropium 4 Gm Inhalation [place]) 0 gm INH Q4H PRN PRN Reason: Dyspnea Last Admin: 02/28/21 12:02 Dose: 1 puff Documented by: Amitriptyline HCl (Amitriptyline 25 Mg Tab) 25 mg PO BEDTIME DAVIDE Last Admin: 02/28/21 21:44 Dose: 25 mg Documented by: Benzonatate (Benzonatate 100 Mg Cap) 100 mg PO Q8H PRN PRN Reason: Cough Last Admin: 03/01/21 04:43 Dose: 100 mg Documented by: Dexamethasone (Dexamethasone 4 Mg/Ml Sdv) 6 mg IVPUSH Q24H [facility] Stop: 03/07/21 18:01 Last Admin: 02/28/21 17:40 Dose: 6 mg Documented by: Docusate Sodium (Docusate Sodium 100 Mg Cap) 100 mg PO BID PRN PRN Reason: Constipation Enoxaparin Sodium (Enoxaparin 40 Mg/0.4 Ml Syringe) 40 mg SUBCUT BEDTIME DAVIDE Last Admin: 02/28/21 21:44 Dose: 40 mg Documented by: Furosemide (Furosemide 20 Mg Tab) 20 mg PO BIDDIURETIC DAVIDE Last Admin: 03/01/21 15:25 Dose: 20 mg Documented by: Guaifenesin/Dextromethorphan (Guaifenesin/Dextromethorphan 100-10 Mg/5 Ml Soln 10 Ml Cup) 10 ml PO Q4H PRN PRN Reason: Cough Last Admin: 03/01/21 05:02 Dose: 10 ml Documented by: Hydrochlorothiazide (Hydrochlorothiazide 25 Mg Tab) 25 mg PO BID [facility] Last Admin: 03/01/21 09:42 Dose: 25 mg Documented by: Remdesivir 100 mg/ Sodium (Chloride) 100 mls @ 100 mls/hr IV Q24H [facility] Stop: 03/02/21 23:59 Last Admin: 02/28/21 22:56 Dose: 100 mls/hr Documented by: Ibuprofen (Ibuprofen 800 Mg Tab) 800 mg PO Q8H PRN PRN Reason: Fever Last Admin: 02/27/21 02:17 Dose: 800 mg Documented by: Insulin Human Lispro (Insulin Lispro 100 Unit/Ml 3 Ml Kwikpen) 0 unit SUBCUT QIDACANDBED [facility]; Protocol Last Admin: 03/01/21 12:44 Dose: 1 units Documented by: Lidocaine HCl (Lidocaine 1% 5 Ml Sdv) 5 ml INJECT ONETIME PRN PRN Reason: Other Lorazepam (Lorazepam 2 Mg/Ml Sdv) 1 mg IV Q6H PRN PRN Reason: Anxiety Losartan Potassium (Losartan 50 Mg Tab) 150 mg PO DAILY [facility] Last Admin: 03/01/21 10:12 Dose: Not Given Documented by: Metolazone (Metolazone 2.5 Mg Tab) 5 mg PO DAILY [facility] Last Admin: 03/01/21 09:52 Dose: 5 mg Documented by: Metoprolol Tartrate (Metoprolol Tartrate 50 Mg Tab) 50 mg PO BID [facility] Last Admin: 03/01/21 10:12 Dose: Not Given Documented by: Morphine Sulfate (Morphine 2 Mg/Ml Syringe) 2 mg IVPUSH Q2H PRN PRN Reason: Pain (severe 7-10) Ondansetron HCl (Ondansetron 4 Mg Tab.Dis) 4 mg PO Q6H PRN PRN Reason: Nausea able to take PO Oxycodone HCl (Oxycodone 5 Mg Tab) 5 mg PO Q4H PRN PRN Reason: Pain (moderate 4-6) Pantoprazole Sodium (Pantoprazole 40 Mg Tab.Cr) 40 mg PO ACBREAKFAST [facility] Last Admin: 03/01/21 08:25 Dose: 40 mg Documented by: Discontinued Medications Albuterol (Albuterol 8 Gm Inhaler) 0 gm INH ONETIME ONE Stop: 02/26/21 23:52 Last Admin: 02/26/21 23:59 Dose: 2 puff Documented by: Albuterol/Ipratropium (Albuterol/Ipratropium 3.0-0.5 Mg/3 Ml Neb Soln) 3 ml NEB ONETIME ONE Stop: 02/26/21 23:16 Last Admin: 02/27/21 01:29 Dose: Not Given Documented by: Amitriptyline HCl (Amitriptyline 25 Mg Tab) 25 - 50 mg PO BEDTIME [facility] Benzonatate (Benzonatate 100 Mg Cap) 200 mg PO Q8H PRN PRN Reason: Cough Dexamethasone (Dexamethasone 4 Mg/Ml Sdv) 6 mg IVPUSH DAILY [facility] Stop: 03/07/21 09:01 Last Admin: 02/27/21 02:13 Dose: 6 mg Documented by: Enoxaparin Sodium (Enoxaparin 40 Mg/0.4 Ml Syringe) 40 mg SUBCUT DAILY [facility] Last Admin: 02/27/21 02:14 Dose: 40 mg Documented by: Guaifenesin (Guaifenesin 100 Mg/5 Ml Soln Ml (118 Ml Bottle)) 100 mg PO Q4H PRN PRN Reason: Cough Guaifenesin/Dextromethorphan (Guaifenesin/Dextromethorphan 100-10 Mg/5 Ml Soln 10 Ml Cup) Confirm Administered Dose 10 ml .ROUTE .STK-MED ONE Stop: 03/01/21 04:53 Last Admin: 03/01/21 05:02 Dose: Not Given Documented by: Remdesivir 200 mg/ Sodium (Chloride) 250 mls @ 250 mls/hr IV ONETIME ONE Stop: 02/27/21 02:31 Last Admin: 02/27/21 02:17 Dose: 250 mls/hr Documented by: Pantoprazole Sodium (Pantoprazole 40 Mg Vial) 40 mg IVPUSH DAILY@0730 [facility] Last Admin: 02/28/21 08:20 Dose: 40 mg Documented by: Potassium Chloride (Potassium Chloride 20 Meq Tab.Er) 40 meq PO ONETIME ONE Stop: 03/01/21 09:01 Last Admin: 03/01/21 09:59 Dose: 40 meq Documented by: - Exam Quality Assessment: Supplemental Oxygen General: Alert, Oriented, Cooperative, No Acute Distress Lungs: Normal Respiratory Effort. No: Wheezing Cardiovascular: Regular Rate, Regular Rhythm GI/Abdominal Exam: Soft, No Distention Extremities: No Pedal Edema Psy/Mental Status: Alert, Normal Affect - Patient Data Lab Results Last 24 hrs: Laboratory Results - last 24 hr 02/28/21 02/28/21 03/01/21 Range/Units 17:37 21:12 04:17 WBC (4.5-11.0) K/uL RBC (4.30-5.90) M/uL Hgb (12.0-15.0) g/dL Hct (40.0-54.0) % MCV (80-98) fL MCH (27-31) pg MCHC (32-36) % Plt Count (150-400) K/uL Neut % (Auto) (36-66) % Lymph % (Auto) (24-44) % [place] % (Auto) (2-6) % Eos % (Auto) (2-4) % Baso % (Auto) (0-1) % D-Dimer, Quantitative (0.0-500.0) ng/mL Sodium 136 L (140-148) mmol/L Potassium 3.5 L (3.6-5.2) mmol/L Chloride 95 L (100-108) mmol/L Carbon Dioxide 30 (21-32) mmol/L Anion Gap 14.5 H (5.0-14.0) mmol/L BUN 43 H (7-18) mg/dL Creatinine 1.3 (0.8-1.3) mg/dL Est Cr Clr Drug Dosing 65.87 mL/min Estimated GFR (MDRD) 55 L (>60) Glucose 142 H (74-106) mg/dL POC Glucose 147 H 172 H (74-106) mg/dL Calcium 8.4 L (8.5-10.1) mg/dL Total Bilirubin 0.4 (0.2-1.0) mg/dL Direct Bilirubin 0.08 (0.0-0.2) mg/dL Indirect Bilirubin TNP AST 52 H (15-37) U/L ALT 39 (12-78) U/L Alkaline Phosphatase 48 (46-116) U/L C-Reactive Protein 1.60 H (0.0-0.3) mg/dL Total Protein 7.3 (6.4-8.2) g/dL Albumin 2.9 L (3.4-5.0) g/dL Globulin 4.4 H (2.3-3.5) g/dL Albumin/Globulin Ratio 0.7 L (1.2-2.2) 03/01/21 03/01/21 03/01/21 Range/Units 04:17 04:17 07:28 WBC 7.7 (4.5-11.0) K/uL RBC 5.85 (4.30-5.90) M/uL Hgb 15.2 H (12.0-15.0) g/dL Hct 47.3 (40.0-54.0) % MCV 81 (80-98) fL MCH 26 L (27-31) pg MCHC 32 (32-36) % Plt Count 211 (150-400) K/uL Neut % (Auto) 71.1 H (36-66) % Lymph % (Auto) 16.5 L (24-44) % [place] % (Auto) 11.8 H (2-6) % Eos % (Auto) 0.3 L (2-4) % Baso % (Auto) 0.3 (0-1) % D-Dimer, Quantitative 895.19 H (0.0-500.0) ng/mL Sodium (140-148) mmol/L Potassium (3.6-5.2) mmol/L Chloride (100-108) mmol/L Carbon Dioxide (21-32) mmol/L Anion Gap (5.0-14.0) mmol/L BUN (7-18) mg/dL Creatinine (0.8-1.3) mg/dL Est Cr Clr Drug Dosing mL/min Estimated GFR (MDRD) (>60) Glucose (74-106) mg/dL POC Glucose 102 (74-106) mg/dL Calcium (8.5-10.1) mg/dL Total Bilirubin (0.2-1.0) mg/dL Direct Bilirubin (0.0-0.2) mg/dL Indirect Bilirubin AST (15-37) U/L ALT (12-78) U/L Alkaline Phosphatase (46-116) U/L C-Reactive Protein (0.0-0.3) mg/dL Total Protein (6.4-8.2) g/dL Albumin (3.4-5.0) g/dL Globulin (2.3-3.5) g/dL Albumin/Globulin Ratio (1.2-2.2) 03/01/21 Range/Units 11:45 WBC (4.5-11.0) K/uL RBC (4.30-5.90) M/uL Hgb (12.0-15.0) g/dL Hct (40.0-54.0) % MCV (80-98) fL MCH (27-31) pg MCHC (32-36) % Plt Count (150-400) K/uL Neut % (Auto) (36-66) % Lymph % (Auto) (24-44) % [place] % (Auto) (2-6) % Eos % (Auto) (2-4) % Baso % (Auto) (0-1) % D-Dimer, Quantitative (0.0-500.0) ng/mL Sodium (140-148) mmol/L Potassium (3.6-5.2) mmol/L Chloride (100-108) mmol/L Carbon Dioxide (21-32) mmol/L Anion Gap (5.0-14.0) mmol/L BUN (7-18) mg/dL Creatinine (0.8-1.3) mg/dL Est Cr Clr Drug Dosing mL/min Estimated GFR (MDRD) (>60) Glucose (74-106) mg/dL POC Glucose 167 H (74-106) mg/dL Calcium (8.5-10.1) mg/dL Total Bilirubin (0.2-1.0) mg/dL Direct Bilirubin (0.0-0.2) mg/dL Indirect Bilirubin AST (15-37) U/L ALT (12-78) U/L Alkaline Phosphatase (46-116) U/L C-Reactive Protein (0.0-0.3) mg/dL Total Protein (6.4-8.2) g/dL Albumin (3.4-5.0) g/dL Globulin (2.3-3.5) g/dL Albumin/Globulin Ratio (1.2-2.2) Result Diagrams: 03/01/21 04:17 03/01/21 04:17 Sepsis Event Note - Evaluation Sepsis Screening Result: No Definite Risk - Focused Exam Vital Signs: Vital Signs Temp Pulse Resp BP Pulse Ox 03/01/21 14:57 36.2 C 43 L 18 106/45 L 92 L 03/01/21 12:48 36.4 C 63 20 85/50 L 94 L 03/01/21 08:00 35.8 C L 61 18 95/40 L 92 L 03/01/21 07:00 91 L 03/01/21 04:00 36.1 C 93 18 100/51 L 91 L - Problem List Review Problem List Initiated/Reviewed/Updated: Yes - My Orders Last 24 Hours: My Active Orders 03/02/21 05:00 COMPREHENSIVE METABOLIC PN,CMP [CHEM] Timed - Plan Plan:: ASSESSMENT AND PLAN - COVID-19 pneumonia-complicated by hypoxia, weakness, nausea and vomiting. Slowly improving. Still requiring supplemental oxygen at 2 L. D-dimer and CRP are improving. -Covid precautions and isolation -Prone ventilation as possible -Dexamethasone 6 mg po daily, today is day 4 -Lovenox 40 mg subcut. Every 24 hours -Albuterol inhaler 2 puffs every 4 hours as needed for shortness of breath -Atrovent inhaler 1 puff 4 times a day -IV Remdesivir 200mg x1, then IV Remdesivir 100 mg daily x 4 days, today is day 4 of 5 -oxygen therapy to keep oxygen saturation >90% Congestive Heart Failure-well compensated. -I&O -Metolazone 5 mg daily -Lasix 20 mg po bid -valsartan 320 mg daily Diabetes type 2-diet controlled at home. Blood sugar control acceptable. -POC blood glucose testing before meals -low dose Sliding scale insulin Hypertension-blood pressures have been low to borderline low. -Hold antihypertensive medications with borderline low blood pressure. Maintenance issues - - DVT prophylaxis - Lovenox 40 mg every 24 hours - GI prophylaxis -PPI - Nutrition - Consistent carb diet Disposition -home with family Primary care physician - Dr. Darius Montemayor, Sr.
[2021-03-01] MEDS: Dexamethasone 4 MG/ML SDV IVPUSH SCH (18:24)
[2021-03-01] MEDS: Amitriptyline 25 MG Tab PO SCH (21:27)
[2021-03-01] MEDS: Enoxaparin 40 MG/0.4 ML Syringe SUBCUT SCH (21:27)
[2021-03-01] MEDS: REMDESIVIR 100 MG in Sodium Chloride 0.9% 100 ML IV SCH (22:28)
[2021-03-02] MEDS: Insulin Lispro 100 Unit/ML 3 ML KwikPen SUBCUT SCH ×4 (07:56→21:22)
[2021-03-02] MEDS: Furosemide 20 MG Tab PO SCH ×2 (08:01→14:22)
[2021-03-02] MEDS: Pantoprazole 40 MG Tab.CR PO SCH (08:01)
[2021-03-02] MEDS ORDERED: Potassium Chloride 20 MEQ Tab.ER PO ONE (11:26)
--- NOTE | 2021-03-02 11:33 | PCM.PN ---
- General Info Date of Service: 03/02/21 Subjective Update: Mr. Villa remained stable since yesterday, continues to require 2 L of oxygen per minute via nasal cannula. He has been doing better with activity, less shortness of breath and desaturations. Appetite remains good energy level slowly improving. Functional Status: Reports: Tolerating Diet, Urinating - Review of Systems General: Reports: Weakness, Fatigue. Denies: Fever, Chills Pulmonary: Reports: Shortness of Breath, Cough, Wheezing. Denies: Pleuritic Chest Pain, Sputum, Hemoptysis Cardiovascular: Reports: Dyspnea on Exertion. Denies: Chest Pain, Palpitations, Orthopnea, PND, Edema, Lightheadedness Gastrointestinal: Reports: No Symptoms Genitourinary: Reports: No Symptoms - Patient Data Vitals - Most Recent: Last Vital Signs Temp 96.1 F L 03/02/21 08:05 Pulse 48 L 03/02/21 08:05 Resp 17 03/02/21 08:05 BP 100/56 L 03/02/21 08:05 Pulse Ox 92 L 03/02/21 08:05 Weight - Most Recent: 286 lb I&O - Last 24 Hours: Intake & Output 03/01/21 03/02/21 03/02/21 22:59 06:59 14:59 Intake Total 3780 1080 Balance 3780 1080 Lab Results Last 24 Hours: Laboratory Results - last 24 hr 03/01/21 03/01/21 03/01/21 Range/Units 11:45 16:24 20:59 Sodium (140-148) mmol/L Potassium (3.6-5.2) mmol/L Chloride (100-108) mmol/L Carbon Dioxide (21-32) mmol/L Anion Gap (5.0-14.0) mmol/L BUN (7-18) mg/dL Creatinine (0.8-1.3) mg/dL Est Cr Clr Drug Dosing mL/min Estimated GFR (MDRD) (>60) Glucose (74-106) mg/dL POC Glucose 167 H 123 H 174 H (74-106) mg/dL Calcium (8.5-10.1) mg/dL Total Bilirubin (0.2-1.0) mg/dL Direct Bilirubin (0.0-0.2) mg/dL Indirect Bilirubin AST (15-37) U/L ALT (12-78) U/L Alkaline Phosphatase (46-116) U/L Total Protein (6.4-8.2) g/dL Albumin (3.4-5.0) g/dL Globulin (2.3-3.5) g/dL Albumin/Globulin Ratio (1.2-2.2) 03/02/21 03/02/21 03/02/21 Range/Units 00:53 04:10 07:30 Sodium 139 L (140-148) mmol/L Potassium 3.6 (3.6-5.2) mmol/L Chloride 98 L (100-108) mmol/L Carbon Dioxide 30 (21-32) mmol/L Anion Gap 14.6 H (5.0-14.0) mmol/L BUN 48 H (7-18) mg/dL Creatinine 1.4 H (0.8-1.3) mg/dL Est Cr Clr Drug Dosing 61.16 mL/min Estimated GFR (MDRD) 51 L (>60) Glucose 233 H (74-106) mg/dL POC Glucose 229 H (74-106) mg/dL Calcium 8.6 (8.5-10.1) mg/dL Total Bilirubin 0.3 0.4 (0.2-1.0) mg/dL Direct Bilirubin 0.12 (0.0-0.2) mg/dL Indirect Bilirubin 0.18 AST 64 H 59 H (15-37) U/L ALT 69 D 66 (12-78) U/L Alkaline Phosphatase 50 47 (46-116) U/L Total Protein 8.2 7.5 (6.4-8.2) g/dL Albumin 3.3 L 3.0 L (3.4-5.0) g/dL Globulin 4.9 H 4.5 H (2.3-3.5) g/dL Albumin/Globulin Ratio 0.7 L 0.7 L (1.2-2.2) 03/02/21 Range/Units 11:23 Sodium (140-148) mmol/L Potassium (3.6-5.2) mmol/L Chloride (100-108) mmol/L Carbon Dioxide (21-32) mmol/L Anion Gap (5.0-14.0) mmol/L BUN (7-18) mg/dL Creatinine (0.8-1.3) mg/dL Est Cr Clr Drug Dosing mL/min Estimated GFR (MDRD) (>60) Glucose (74-106) mg/dL POC Glucose 206 H (74-106) mg/dL Calcium (8.5-10.1) mg/dL Total Bilirubin (0.2-1.0) mg/dL Direct Bilirubin (0.0-0.2) mg/dL Indirect Bilirubin AST (15-37) U/L ALT (12-78) U/L Alkaline Phosphatase (46-116) U/L Total Protein (6.4-8.2) g/dL Albumin (3.4-5.0) g/dL Globulin (2.3-3.5) g/dL Albumin/Globulin Ratio (1.2-2.2) Med Orders - Current: Current Medications Albuterol (Albuterol 8 Gm Inhaler) 0 gm INH Q2H PRN PRN Reason: Cough Last Admin: 02/28/21 08:37 Dose: 2 puff Documented by: Albuterol/Ipratropium (Albuterol/Ipratropium 4 Gm Inhalation [place]) 0 gm INH Q4H PRN PRN Reason: Dyspnea Last Admin: 02/28/21 12:02 Dose: 1 puff Documented by: Amitriptyline HCl (Amitriptyline 25 Mg Tab) 25 mg PO BEDTIME DAVIDE Last Admin: 03/01/21 21:27 Dose: 25 mg Documented by: Benzonatate (Benzonatate 100 Mg Cap) 100 mg PO Q8H PRN PRN Reason: Cough Last Admin: 03/01/21 04:43 Dose: 100 mg Documented by: Dexamethasone (Dexamethasone 4 Mg/Ml Sdv) 6 mg IVPUSH Q24H DAVIDE Stop: 03/07/21 18:01 Last Admin: 03/01/21 18:24 Dose: 6 mg Documented by: Docusate Sodium (Docusate Sodium 100 Mg Cap) 100 mg PO BID PRN PRN Reason: Constipation Enoxaparin Sodium (Enoxaparin 40 Mg/0.4 Ml Syringe) 40 mg SUBCUT BEDTIME DAVIDE Last Admin: 03/01/21 21:27 Dose: 40 mg Documented by: Furosemide (Furosemide 20 Mg Tab) 20 mg PO BIDDIURETIC DAVIDE Last Admin: 03/02/21 08:01 Dose: 20 mg Documented by: Guaifenesin/Dextromethorphan (Guaifenesin/Dextromethorphan 100-10 Mg/5 Ml Soln 10 Ml Cup) 10 ml PO Q4H PRN PRN Reason: Cough Last Admin: 03/01/21 05:02 Dose: 10 ml Documented by: Hydrochlorothiazide (Hydrochlorothiazide 25 Mg Tab) 25 mg PO BID [facility] Last Admin: 03/01/21 09:42 Dose: 25 mg Documented by: Remdesivir 100 mg/ Sodium (Chloride) 100 mls @ 100 mls/hr IV Q24H [facility] Stop: 03/02/21 23:59 Last Admin: 03/01/21 22:28 Dose: 100 mls/hr Documented by: Magnesium Sulfate 2 gm/ Premix 50 mls @ 25 mls/hr IV Q6H [facility] Stop: 03/02/21 13:29 Ibuprofen (Ibuprofen 800 Mg Tab) 800 mg PO Q8H PRN PRN Reason: Fever Last Admin: 02/27/21 02:17 Dose: 800 mg Documented by: Insulin Human Lispro (Insulin Lispro 100 Unit/Ml 3 Ml Kwikpen) 0 unit SUBCUT QIDACANDBED [facility]; Protocol Last Admin: 03/02/21 07:56 Dose: 2 units Documented by: Lidocaine HCl (Lidocaine 1% 5 Ml Sdv) 5 ml INJECT ONETIME PRN PRN Reason: Other Lorazepam (Lorazepam 2 Mg/Ml Sdv) 1 mg IV Q6H PRN PRN Reason: Anxiety Losartan Potassium (Losartan 50 Mg Tab) 150 mg PO DAILY [facility] Last Admin: 03/01/21 10:12 Dose: Not Given Documented by: Metoprolol Tartrate (Metoprolol Tartrate 50 Mg Tab) 50 mg PO BID [facility] Last Admin: 03/01/21 10:12 Dose: Not Given Documented by: Morphine Sulfate (Morphine 2 Mg/Ml Syringe) 2 mg IVPUSH Q2H PRN PRN Reason: Pain (severe 7-10) Ondansetron HCl (Ondansetron 4 Mg Tab.Dis) 4 mg PO Q6H PRN PRN Reason: Nausea able to take PO Oxycodone HCl (Oxycodone 5 Mg Tab) 5 mg PO Q4H PRN PRN Reason: Pain (moderate 4-6) Pantoprazole Sodium (Pantoprazole 40 Mg Tab.Cr) 40 mg PO ACBREAKFAST [facility] Last Admin: 03/02/21 08:01 Dose: 40 mg Documented by: Potassium Chloride (Potassium Chloride 20 Meq Tab.Er) 40 meq PO ONETIME ONE Stop: 03/02/21 11:27 Discontinued Medications Albuterol (Albuterol 8 Gm Inhaler) 0 gm INH ONETIME ONE Stop: 02/26/21 23:52 Last Admin: 02/26/21 23:59 Dose: 2 puff Documented by: Albuterol/Ipratropium (Albuterol/Ipratropium 3.0-0.5 Mg/3 Ml Neb Soln) 3 ml NEB ONETIME ONE Stop: 02/26/21 23:16 Last Admin: 02/27/21 01:29 Dose: Not Given Documented by: Amitriptyline HCl (Amitriptyline 25 Mg Tab) 25 - 50 mg PO BEDTIME [place]IDE Benzonatate (Benzonatate 100 Mg Cap) 200 mg PO Q8H PRN PRN Reason: Cough Dexamethasone (Dexamethasone 4 Mg/Ml Sdv) 6 mg IVPUSH DAILY [facility] Stop: 03/07/21 09:01 Last Admin: 02/27/21 02:13 Dose: 6 mg Documented by: Enoxaparin Sodium (Enoxaparin 40 Mg/0.4 Ml Syringe) 40 mg SUBCUT DAILY [facility] Last Admin: 02/27/21 02:14 Dose: 40 mg Documented by: Guaifenesin (Guaifenesin 100 Mg/5 Ml Soln Ml (118 Ml Bottle)) 100 mg PO Q4H PRN PRN Reason: Cough Guaifenesin/Dextromethorphan (Guaifenesin/Dextromethorphan 100-10 Mg/5 Ml Soln 10 Ml Cup) Confirm Administered Dose 10 ml .ROUTE .STK-MED ONE Stop: 03/01/21 04:53 Last Admin: 03/01/21 05:02 Dose: Not Given Documented by: Remdesivir 200 mg/ Sodium (Chloride) 250 mls @ 250 mls/hr IV ONETIME ONE Stop: 02/27/21 02:31 Last Admin: 02/27/21 02:17 Dose: 250 mls/hr Documented by: Metolazone (Metolazone 2.5 Mg Tab) 5 mg PO DAILY [facility] Last Admin: 03/01/21 09:52 Dose: 5 mg Documented by: Pantoprazole Sodium (Pantoprazole 40 Mg Vial) 40 mg IVPUSH DAILY@0730 [facility] Last Admin: 02/28/21 08:20 Dose: 40 mg Documented by: Potassium Chloride (Potassium Chloride 20 Meq Tab.Er) 40 meq PO ONETIME ONE Stop: 03/01/21 09:01 Last Admin: 03/01/21 09:59 Dose: 40 meq Documented by: - Exam Quality Assessment: Supplemental Oxygen, DVT Prophylaxis General: Alert, Oriented, Cooperative, Mild Distress Lungs: Decreased Breath Sounds, Crackles, Wheezing. No: Rales, Rhonchi Cardiovascular: Regular Rate, Regular Rhythm, No Murmurs GI/Abdominal Exam: Soft, Non-Tender, No Organomegaly, No Distention Extremities: Non-Tender, No Pedal Edema - Patient Data Lab Results Last 24 hrs: Laboratory Results - last 24 hr 03/01/21 03/01/21 03/01/21 Range/Units 11:45 16:24 20:59 Sodium (140-148) mmol/L Potassium (3.6-5.2) mmol/L Chloride (100-108) mmol/L Carbon Dioxide (21-32) mmol/L Anion Gap (5.0-14.0) mmol/L BUN (7-18) mg/dL Creatinine (0.8-1.3) mg/dL Est Cr Clr Drug Dosing mL/min Estimated GFR (MDRD) (>60) Glucose (74-106) mg/dL POC Glucose 167 H 123 H 174 H (74-106) mg/dL Calcium (8.5-10.1) mg/dL Total Bilirubin (0.2-1.0) mg/dL Direct Bilirubin (0.0-0.2) mg/dL Indirect Bilirubin AST (15-37) U/L ALT (12-78) U/L Alkaline Phosphatase (46-116) U/L Total Protein (6.4-8.2) g/dL Albumin (3.4-5.0) g/dL Globulin (2.3-3.5) g/dL Albumin/Globulin Ratio (1.2-2.2) 03/02/21 03/02/21 03/02/21 Range/Units 00:53 04:10 07:30 Sodium 139 L (140-148) mmol/L Potassium 3.6 (3.6-5.2) mmol/L Chloride 98 L (100-108) mmol/L Carbon Dioxide 30 (21-32) mmol/L Anion Gap 14.6 H (5.0-14.0) mmol/L BUN 48 H (7-18) mg/dL Creatinine 1.4 H (0.8-1.3) mg/dL Est Cr Clr Drug Dosing 61.16 mL/min Estimated GFR (MDRD) 51 L (>60) Glucose 233 H (74-106) mg/dL POC Glucose 229 H (74-106) mg/dL Calcium 8.6 (8.5-10.1) mg/dL Total Bilirubin 0.3 0.4 (0.2-1.0) mg/dL Direct Bilirubin 0.12 (0.0-0.2) mg/dL Indirect Bilirubin 0.18 AST 64 H 59 H (15-37) U/L ALT 69 D 66 (12-78) U/L Alkaline Phosphatase 50 47 (46-116) U/L Total Protein 8.2 7.5 (6.4-8.2) g/dL Albumin 3.3 L 3.0 L (3.4-5.0) g/dL Globulin 4.9 H 4.5 H (2.3-3.5) g/dL Albumin/Globulin Ratio 0.7 L 0.7 L (1.2-2.2) 03/02/ Range/Units 11:23 Sodium (140-148) mmol/L Potassium (3.6-5.2) mmol/L Chloride (100-108) mmol/L Carbon Dioxide (21-32) mmol/L Anion Gap (5.0-14.0) mmol/L BUN (7-18) mg/dL Creatinine (0.8-1.3) mg/dL Est Cr Clr Drug Dosing mL/min Estimated GFR (MDRD) (>60) Glucose (74-106) mg/dL POC Glucose 206 H (74-106) mg/dL Calcium (8.5-10.1) mg/dL Total Bilirubin (0.2-1.0) mg/dL Direct Bilirubin (0.0-0.2) mg/dL Indirect Bilirubin AST (15-37) U/L ALT (12-78) U/L Alkaline Phosphatase (46-116) U/L Total Protein (6.4-8.2) g/dL Albumin (3.4-5.0) g/dL Globulin (2.3-3.5) g/dL Albumin/Globulin Ratio (1.2-2.2) Result Diagrams: 03/01/21 04:17 03/02/21 04:10 Sepsis Event Note - Evaluation Sepsis Screening Result: No Definite Risk - Focused Exam Vital Signs: Vital Signs Temp Pulse Resp BP Pulse Ox Pulse Ox 03/02/21 08:05 96.1 F L 48 L 17 100/56 L 92 L 03/02/21 08:00 92 L 03/02/21 03:00 95.3 F L 54 L 16 85/47 L 94 L 03/02/21 01:00 94 L - Problem List Review Problem List Initiated/Reviewed/Updated: Yes - My Orders Last 24 Hours: My Active Orders 03/01/21 21:00 GLUCOSE POC LAB TO COLLECT JPM [POC] QIDACANDBED 03/02/21 11:26 Potassium Chloride [Klor-Con M20] 40 meq PO ONETIME ONE 03/02/21 11:30 GLUCOSE POC LAB TO COLLECT JPM [POC] QIDACANDBED Magnesium Sulfate/Water [Magnesium Sulfate in Water 2 GM/50 ML] 2 gm Premix Bag 1 bag IV Q6H 03/02/21 16:30 GLUCOSE POC LAB TO COLLECT JPM [POC] QIDACANDBED 03/02/21 21:00 GLUCOSE POC LAB TO COLLECT JPM [POC] QIDACANDBED 03/03/21 05:00 BASIC METABOLIC PANEL,BMP [CHEM] Timed MAGNESIUM [CHEM] Timed 03/03/21 07:30 GLUCOSE POC LAB TO COLLECT JPM [POC] QIDACANDBED 03/03/21 11:30 GLUCOSE POC LAB TO COLLECT JPM [POC] QIDACANDBED 03/03/21 16:30 GLUCOSE POC LAB TO COLLECT JPM [POC] QIDACANDBED 03/03/21 21:00 GLUCOSE POC LAB TO COLLECT JPM [POC] QIDACANDBED 03/04/21 07:30 GLUCOSE POC LAB TO COLLECT JPM [POC] QIDACANDBED 03/04/21 11:30 GLUCOSE POC LAB TO COLLECT JPM [POC] QIDACANDBED 03/04/21 16:30 GLUCOSE POC LAB TO COLLECT JPM [POC] QIDACANDBED 03/04/21 21:00 GLUCOSE POC LAB TO COLLECT JPM [POC] QIDACANDBED 03/05/21 07:30 GLUCOSE POC LAB TO COLLECT JPM [POC] QIDACANDBED 03/05/21 11:30 GLUCOSE POC LAB TO COLLECT JPM [POC] QIDACANDBED 03/05/21 16:30 GLUCOSE POC LAB TO COLLECT JPM [POC] QIDACANDBED 03/05/21 21:00 GLUCOSE POC LAB TO COLLECT JPM [POC] QIDACANDBED 03/06/21 07:30 GLUCOSE POC LAB TO COLLECT JPM [POC] QIDACANDBED 03/06/21 11:30 GLUCOSE POC LAB TO COLLECT JPM [POC] QIDACANDBED 03/06/21 16:30 GLUCOSE POC LAB TO COLLECT JPM [POC] QIDACANDBED 03/06/21 21:00 GLUCOSE POC LAB TO COLLECT JPM [POC] QIDACANDBED - Plan Plan:: ASSESSMENT AND PLAN - COVID-19 pneumonia-complicated by hypoxia, weakness, nausea and vomiting. Slowly improving. Still requiring supplemental oxygen at 2 L. Able to be more active with less shortness of breath on exertion. -Covid precautions and isolation -Prone ventilation as possible -Dexamethasone 6 mg po daily, today is day 5 -Lovenox 40 mg subcut. Every 24 hours -Albuterol inhaler 2 puffs every 4 hours as needed for shortness of breath -Atrovent inhaler 1 puff 4 times a day -IV Remdesivir 200mg x1, then IV Remdesivir 100 mg daily x 4 days, today is day 5 of 5 -oxygen therapy to keep oxygen saturation >90% Congestive Heart Failure-well compensated. -I&O -Metolazone 5 mg daily -Lasix 20 mg po bid -valsartan 320 mg daily Diabetes type 2-diet controlled at home. Blood sugar control acceptable. -POC blood glucose testing before meals -low dose Sliding scale insulin Hypertension-blood pressures have been low to borderline low. -Hold antihypertensive medications with borderline low blood pressure. Maintenance issues - - DVT prophylaxis - Lovenox 40 mg every 24 hours - GI prophylaxis -PPI - Nutrition - Consistent carb diet Disposition -home with family Primary care physician - Dr. Darius Montemayor, Sr.
[2021-03-02] MEDS ORDERED: Magnesium Sulfate/Water 2 GM in Premix Bag 1 BAG IV SCH (12:00)
[2021-03-02] MEDS: Dexamethasone 4 MG/ML SDV IVPUSH SCH (17:01)
[2021-03-02] MEDS: Amitriptyline 25 MG Tab PO SCH (21:23)
[2021-03-02] MEDS: Enoxaparin 40 MG/0.4 ML Syringe SUBCUT SCH (21:26)
[2021-03-02] MEDS: Metoprolol Tartrate 50 MG Tab PO SCH (21:37)
[2021-03-02] MEDS: REMDESIVIR 100 MG in Sodium Chloride 0.9% 100 ML IV SCH (22:01)
[2021-03-03 08:02] VITALS: BP 125/42
[2021-03-03] MEDS: Pantoprazole 40 MG Tab.CR PO SCH (08:09)
[2021-03-03] MEDS: Metoprolol Tartrate 50 MG Tab PO SCH (08:09)
[2021-03-03 08:10] VITALS: PULSE 68
[2021-03-03] MEDS: Insulin Lispro 100 Unit/ML 3 ML KwikPen SUBCUT SCH ×2 (08:10→13:09)
[2021-03-03] MEDS: Furosemide 20 MG Tab PO SCH (08:10)
--- NOTE | 2021-03-03 10:36 | PCM.DCSUM1 ---
Discharge Summary - Hospital Course Brief History: Mr. Villa is a 65-year-old gentleman who was admitted through the emergency department with weakness, shortness of breath, cough, hypoxia, secondary to COVID-19 pneumonia and COPD exacerbation. - Discharge Data Discharge Date: 03/03/21 Discharge Disposition: Home, Self-Care 01 Condition: Fair - Referral to Home Health Primary Care Physician: Darius Montemayor Sr, MD - Discharge Diagnosis/Problem(s) (1) COPD exacerbation SNOMED Code(s): 749015071 ICD Code: J44.1 - CHRONIC OBSTRUCTIVE PULMONARY DISEASE W (ACUTE) EXACERBATION Status: Acute Current Visit: Yes (2) Pneumonia due to COVID-19 virus SNOMED Code(s): 805673679526482793 ICD Code: U07.1 - COVID-19; J12.82 - PNEUMONIA DUE TO CORONAVIRUS DISEASE 2019 Status: Acute Current Visit: Yes (3) Polysubstance abuse SNOMED Code(s): 435041257 ICD Code: F19.10 - OTHER PSYCHOACTIVE SUBSTANCE ABUSE, UNCOMPLICATED Status: Acute Current Visit: No (4) COVID-19 SNOMED Code(s): 262377543 ICD Code: U07.1 - COVID-19 Status: Acute Current Visit: Yes (5) Hypoxia SNOMED Code(s): 032244601 ICD Code: R09.02 - HYPOXEMIA Status: Acute Current Visit: Yes - Patient Summary/Data Hospital Course: Mr. Villa is a 65-year-old gentleman who was admitted through the emergency department with weakness, shortness of breath, hypoxia, cough secondary to COVID-19 pneumonia and COPD exacerbation. He became ill several days prior to admission and on evaluation in the emergency department was noted to be hypoxic as well as Covid positive. He was admitted to the hospital and started on therapy with remdesivir and dexamethasone. He remained fairly stable throughout hospitalization requiring 2 L of oxygen per minute via nasal cannula for most of his hospital stay. He was feeling stronger by the time of discharge and appetite had improved significantly. He was qualified for home O2 on 02 March with an oxygen saturation of 88% on room air and while at rest. He will be discharged home with home oxygen 2 L/min via nasal cannula. He will also be discharged on additional 3 days of oral dexamethasone 4 mg p.o. daily. He does have inhalers available for use at home. Activity will be as tolerated and he will resume his usual diet. Blood glucose levels were monitored during his hospital stay and he was treated with sliding scale Humalog insulin. He will resume his usual therapy with Metformin at the time of discharge. He is instructed to get a Covid vaccination in 3 months. Follow-up appointment will be scheduled with his primary care provider within 1 week. - Patient Instructions Diet: Low Sodium Activity: As Tolerated Other/Special Instructions: Please arrange for home oxygen 2 L/min via nasal cannula. Please schedule follow-up appointment with primary care provider within 1 week. - Discharge Plan *PRESCRIPTION DRUG MONITORING PROGRAM REVIEWED*: Not Applicable *COPY OF PRESCRIPTION DRUG MONITORING REPORT IN PATIENT JEANNETTE: Not Applicable Prescriptions/Med Rec: dexAMETHasone [Dexamethasone] 4 mg PO DAILY #3 tablet Home Medications: Home Meds metOLazone [Metolazone] 5 mg PO DAILY 05/23/17 [History] Amitriptyline [Elavil] 1 - 2 tab PO BEDTIME 06/17/17 [History] Furosemide 20 mg PO BID 06/17/17 [History] Metoprolol Tartrate 50 mg PO BID 06/17/17 [History] Naproxen 500 mg PO Q6HR 06/17/17 [History] hydroCHLOROthiazide [Hydrochlorothiazide] 25 mg PO BID 06/17/17 [History] Valsartan 320 mg PO DAILY 03/15/18 [History] tadalafiL [Cialis] 5 mg PO DAILY 03/15/18 [History] amLODIPine [Norvasc] 10 mg PO DAILY 02/27/21 [History] metFORMIN [Glucophage] 250 mg PO DAILY 02/27/21 [History] dexAMETHasone [Dexamethasone] 4 mg PO DAILY #3 tablet 03/03/21 [Rx] Oxygen Therapy Mode: Nasal Cannula Oxygen Flow Rate (L/min): 2 Patient Handouts: Fall Prevention in the Home, Adult, [id number], COVID-19 Referrals: Darius Montemayor Sr, MD [Primary Care Provider] - - Discharge Summary/Plan Comment DC Time >30 min.: No Total # of Minutes for Discharge Time: 15 - Patient Data Vitals - Most Recent: Last Vital Signs Temp 97.7 F 03/03/21 07:00 Pulse 68 03/03/21 08:09 Resp 18 03/03/21 07:00 BP 125/42 L 03/03/21 08:09 Pulse Ox 95 03/03/21 07:00 Weight - Most Recent: 286 lb I&O - Last 24 hours: Intake & Output 03/02/21 03/03/21 03/03/21 22:59 06:59 14:59 Intake Total 2100 1580 Balance 2100 1580 Lab Results - Last 24 hrs: Laboratory Results - last 24 hr 03/02/21 03/02/21 03/02/21 Range/Units 11:23 16:19 20:58 Sodium (140-148) mmol/L Potassium (3.6-5.2) mmol/L Chloride (100-108) mmol/L Carbon Dioxide (21-32) mmol/L Anion Gap (5.0-14.0) mmol/L BUN (7-18) mg/dL Creatinine (0.8-1.3) mg/dL Est Cr Clr Drug Dosing mL/min Estimated GFR (MDRD) (>60) Glucose (74-106) mg/dL POC Glucose 206 H 213 H 306 H (74-106) mg/dL Calcium (8.5-10.1) mg/dL Magnesium (1.8-2.4) mg/dL Total Bilirubin (0.2-1.0) mg/dL Direct Bilirubin (0.0-0.2) mg/dL Indirect Bilirubin AST (15-37) U/L ALT (12-78) U/L Alkaline Phosphatase (46-116) U/L Total Protein (6.4-8.2) g/dL Albumin (3.4-5.0) g/dL Globulin (2.3-3.5) g/dL Albumin/Globulin Ratio (1.2-2.2) 03/03/21 03/03/21 03/03/21 Range/Units 00:50 04:25 07:37 Sodium 138 L (140-148) mmol/L Potassium 4.0 (3.6-5.2) mmol/L Chloride 98 L (100-108) mmol/L Carbon Dioxide 31 (21-32) mmol/L Anion Gap 13.0 (5.0-14.0) mmol/L BUN 45 H (7-18) mg/dL Creatinine 1.3 (0.8-1.3) mg/dL Est Cr Clr Drug Dosing 65.87 mL/min Estimated GFR (MDRD) 55 L (>60) Glucose 264 H (74-106) mg/dL POC Glucose 230 H (74-106) mg/dL Calcium 8.8 (8.5-10.1) mg/dL Magnesium 1.8 (1.8-2.4) mg/dL Total Bilirubin 0.3 (0.2-1.0) mg/dL Direct Bilirubin 0.11 (0.0-0.2) mg/dL Indirect Bilirubin 0.19 AST 49 H (15-37) U/L ALT 81 H (12-78) U/L Alkaline Phosphatase 58 (46-116) U/L Total Protein 7.9 (6.4-8.2) g/dL Albumin 3.1 L (3.4-5.0) g/dL Globulin 4.8 H (2.3-3.5) g/dL Albumin/Globulin Ratio 0.7 L (1.2-2.2) Med Orders - Current: Current Medications Albuterol (Albuterol 8 Gm Inhaler) 0 gm INH Q2H PRN PRN Reason: Cough Last Admin: 02/28/21 08:37 Dose: 2 puff Documented by: Albuterol/Ipratropium (Albuterol/Ipratropium 4 Gm Inhalation [place]) 0 gm INH Q4H PRN PRN Reason: Dyspnea Last Admin: 02/28/21 12:02 Dose: 1 puff Documented by: Amitriptyline HCl (Amitriptyline 25 Mg Tab) 25 mg PO BEDTIME DAVIDE Last Admin: 03/02/21 21:23 Dose: 25 mg Documented by: Benzonatate (Benzonatate 100 Mg Cap) 100 mg PO Q8H PRN PRN Reason: Cough Last Admin: 03/01/21 04:43 Dose: 100 mg Documented by: Dexamethasone (Dexamethasone 4 Mg/Ml Sdv) 6 mg IVPUSH Q24H DAVIDE Stop: 03/07/21 18:01 Last Admin: 03/02/21 17:01 Dose: 6 mg Documented by: Docusate Sodium (Docusate Sodium 100 Mg Cap) 100 mg PO BID PRN PRN Reason: Constipation Enoxaparin Sodium (Enoxaparin 40 Mg/0.4 Ml Syringe) 40 mg SUBCUT BEDTIME DAVIDE Last Admin: 03/02/21 21:26 Dose: 40 mg Documented by: Furosemide (Furosemide 20 Mg Tab) 20 mg PO BIDDIURETIC [facility] Last Admin: 03/03/21 08:10 Dose: 20 mg Documented by: Guaifenesin/Dextromethorphan (Guaifenesin/Dextromethorphan 100-10 Mg/5 Ml Soln 10 Ml Cup) 10 ml PO Q4H PRN PRN Reason: Cough Last Admin: 03/01/21 05:02 Dose: 10 ml Documented by: Hydrochlorothiazide (Hydrochlorothiazide 25 Mg Tab) 25 mg PO BID [facility] Last Admin: 03/01/21 09:42 Dose: 25 mg Documented by: Ibuprofen (Ibuprofen 800 Mg Tab) 800 mg PO Q8H PRN PRN Reason: Fever Last Admin: 02/27/21 02:17 Dose: 800 mg Documented by: Insulin Human Lispro (Insulin Lispro 100 Unit/Ml 3 Ml Kwikpen) 0 unit SUBCUT QIDACANDBED [facility]; Protocol Last Admin: 03/03/21 08:10 Dose: 2 units Documented by: Lidocaine HCl (Lidocaine 1% 5 Ml Sdv) 5 ml INJECT ONETIME PRN PRN Reason: Other Lorazepam (Lorazepam 2 Mg/Ml Sdv) 1 mg IV Q6H PRN PRN Reason: Anxiety Losartan Potassium (Losartan 50 Mg Tab) 150 mg PO DAILY [facility] Last Admin: 03/01/21 10:12 Dose: Not Given Documented by: Metoprolol Tartrate (Metoprolol Tartrate 50 Mg Tab) 50 mg PO BID [facility] Last Admin: 03/03/21 08:09 Dose: 50 mg Documented by: Morphine Sulfate (Morphine 2 Mg/Ml Syringe) 2 mg IVPUSH Q2H PRN PRN Reason: Pain (severe 7-10) Ondansetron HCl (Ondansetron 4 Mg Tab.Dis) 4 mg PO Q6H PRN PRN Reason: Nausea able to take PO Oxycodone HCl (Oxycodone 5 Mg Tab) 5 mg PO Q4H PRN PRN Reason: Pain (moderate 4-6) Pantoprazole Sodium (Pantoprazole 40 Mg Tab.Cr) 40 mg PO ACBREAKFAST [facility] Last Admin: 03/03/21 08:09 Dose: 40 mg Documented by: Discontinued Medications Albuterol (Albuterol 8 Gm Inhaler) 0 gm INH ONETIME ONE Stop: 02/26/21 23:52 Last Admin: 02/26/21 23:59 Dose: 2 puff Documented by: Albuterol/Ipratropium (Albuterol/Ipratropium 3.0-0.5 Mg/3 Ml Neb Soln) 3 ml NEB ONETIME ONE Stop: 02/26/21 23:16 Last Admin: 02/27/21 01:29 Dose: Not Given Documented by: Amitriptyline HCl (Amitriptyline 25 Mg Tab) 25 - 50 mg PO BEDTIME DAVIDE Benzonatate (Benzonatate 100 Mg Cap) 200 mg PO Q8H PRN PRN Reason: Cough Dexamethasone (Dexamethasone 4 Mg/Ml Sdv) 6 mg IVPUSH DAILY [facility] Stop: 03/07/21 09:01 Last Admin: 02/27/21 02:13 Dose: 6 mg Documented by: Enoxaparin Sodium (Enoxaparin 40 Mg/0.4 Ml Syringe) 40 mg SUBCUT DAILY [facility] Last Admin: 02/27/21 02:14 Dose: 40 mg Documented by: Guaifenesin (Guaifenesin 100 Mg/5 Ml Soln Ml (118 Ml Bottle)) 100 mg PO Q4H PRN PRN Reason: Cough Guaifenesin/Dextromethorphan (Guaifenesin/Dextromethorphan 100-10 Mg/5 Ml Soln 10 Ml Cup) Confirm Administered Dose 10 ml .ROUTE .STK-MED ONE Stop: 03/01/21 04:53 Last Admin: 03/01/21 05:02 Dose: Not Given Documented by: Remdesivir 200 mg/ Sodium (Chloride) 250 mls @ 250 mls/hr IV ONETIME ONE Stop: 02/27/21 02:31 Last Admin: 02/27/21 02:17 Dose: 250 mls/hr Documented by: Remdesivir 100 mg/ Sodium (Chloride) 100 mls @ 100 mls/hr IV Q24H [facility] Stop: 03/02/21 23:59 Last Admin: 03/02/21 22:01 Dose: 100 mls/hr Documented by: Magnesium Sulfate 2 gm/ Premix 50 mls @ 25 mls/hr IV Q6H [facility] Stop: 03/02/21 13:59 Last Admin: 03/02/21 11:53 Dose: 25 mls/hr Documented by: Metolazone (Metolazone 2.5 Mg Tab) 5 mg PO DAILY [facility] Last Admin: 03/01/21 09:52 Dose: 5 mg Documented by: Pantoprazole Sodium (Pantoprazole 40 Mg Vial) 40 mg IVPUSH DAILY@0730 [facility] Last Admin: 02/28/21 08:20 Dose: 40 mg Documented by: Potassium Chloride (Potassium Chloride 20 Meq Tab.Er) 40 meq PO ONETIME ONE Stop: 03/01/21 09:01 Last Admin: 03/01/21 09:59 Dose: 40 meq Documented by: Potassium Chloride (Potassium Chloride 20 Meq Tab.Er) 40 meq PO ONETIME ONE Stop: 03/02/21 11:27 Last Admin: 03/02/21 11:52 Dose: 40 meq Documented by: - Exam Quality Assessment: Reports: Supplemental Oxygen, DVT Prophylaxis General: Reports: Alert, Oriented, Cooperative, Mild Distress Lungs: Reports: Decreased Breath Sounds, Crackles, Wheezing. Denies: Rales, Rhonchi Cardiovascular: Reports: Regular Rate, Regular Rhythm, No Murmurs GI/Abdominal Exam: Soft, Non-Tender, No Organomegaly, No Distention Extremities: Non-Tender, No Pedal Edema
== END 2021-03-03 12:50 | disposition home or self-care (01) | DRG 177 ==
LOC: JP.ED 22:42 → JP.ICU 02-27 00:32 → JP.2SS 02-28 13:35
PROVIDERS: ADMIT Hospitalist; ATTEND Hospitalist
PROC: 8E0ZXY6 Isolation (ICD-10-PCS; 2021-02-26)
PROC: 3E0433Z Introduction of Anti-inflammatory into Central Vein, Percutaneous Approach (ICD-10-PCS; principal; 2021-02-27)
PROC: XW033E5 Introduction of Remdesivir Anti-infective into Peripheral Vein, Percutaneous Approach, New Technology Group 5 (ICD-10-PCS; 2021-02-27)
DX: U07.1 COVID-19 (principal); R09.02 Hypoxemia; J12.82 Pneumonia due to coronavirus disease 2019; J44.0 Chronic obstructive pulmonary disease with (acute) lower respiratory infection; J44.9 Chronic obstructive pulmonary disease, unspecified; J44.1 Chronic obstructive pulmonary disease with (acute) exacerbation; F19.10 Other psychoactive substance abuse, uncomplicated; I11.0 Hypertensive heart disease with heart failure; I50.9 Heart failure, unspecified; F32.A Depression, unspecified; E66.9 Obesity, unspecified; D64.9 Anemia, unspecified; Z88.5 Allergy status to narcotic agent; Z90.49 Acquired absence of other specified parts of digestive tract; Z88.8 Allergy status to other drugs, medicaments and biological substances; Z79.899 Other long term (current) drug therapy; Z87.891 Personal history of nicotine dependence
CPT/HCPCS: 0241U; 36415; 36600; 71045; 80048; 80053; 80076; 82248; 82728; 82803; 82947; 83605; 83615; 83735; 85025; 85379; 85730; 86140; 94640; 99285; A9270-GY; C9113; J1100; J1650; J1815; J3475; J7050